=== PATIENT | male | born 1945 | race Caucasian/White ===

== ENCOUNTER 2018-03-28 07:42 | Outpatient (REF) | payer BC, SELFPAY ==
[2018-03-28 12:31] LABS: Anion Gap 9.7 mmol/L (3-11); BUN 16 mg/dL (7-18); CO2 26.3 mmol/L (21.0-32.0); Calcium 8.7 mg/dL (8.5-10.1); Chloride 106 mmol/L (98-107); Cholesterol 208 mg/dL (50-200); Glucose 106 mg/dL (70-100); HDL Cholesterol 58 mg/dL (40-60); LDL CHOLESTEROL 138 mg/dL (<100); Potassium 4.2 mmol/L (3.5-5.1); Sodium 142 mmol/L (136-145); Triglyceride 106 mg/dL (30-150)
== END 2018-03-28 08:02 ==
LOC: NCHCN 07:42
PROVIDERS: PCP Family Medicine; Visit Provider Nurse Practitioner Family
DX: Z00.00 Encounter for general adult medical examination without abnormal findings (principal); Z13.228 Encounter for screening for other metabolic disorders; Z13.220 Encounter for screening for lipoid disorders
CPT/HCPCS: 80048; 80061; 83721

== ENCOUNTER 2019-01-05 09:06 | Outpatient (CLI) | payer BC, SELFPAY ==
--- NOTE | 2019-01-05 08:38 | DI.RAD_ITS ---
SYMPTOM/DIAGNOSIS: LEFT KNEE PAIN LEFT KNEE: Multiple views. No priors. Mild narrowing and periarticular spurring is seen in the medial femoral tibial joint space. There is mild spurring in the posterior patella. No acute fracture or dislocation is identified. Enthesophytes are seen arising from the patella. The soft tissues are unremarkable. IMPRESSION: Mild osteoarthritis of the left knee.
== END 2019-01-05 09:26 ==
PROVIDERS: PCP Family Medicine; Visit Provider Student in an Organized Health Care Education/Training Program
DX: M25.562 Pain in left knee (principal); M17.12 Unilateral primary osteoarthritis, left knee
CPT/HCPCS: 73564

== ENCOUNTER 2019-12-03 13:37 | Outpatient (REF) | payer BC, SELFPAY ==
[2019-12-03 19:47] LABS: ALT 13 U/L (16-63); AST 16 U/L (15-37); Albumin 3.5 g/dL (3.4-5.0); Alkaline Phosphatase 63 U/L (46-116); BUN 13 mg/dL (7-18); Bilirubin, Total 0.9 mg/dL (0.2-1.0); CREATININE 1.18 mg/dL (0.70-1.30); Calcium 8.9 mg/dL (8.5-10.1); Calculated LDL 78 mg/dL (<100); Chloride 106 mmol/L (98-107); Cholesterol 157 mg/dL (<200); Glucose 119 mg/dL (74-106); HDL Cholesterol 52 mg/dL (40-60); Hemoglobin A1C 5.6 % (3.8-5.6); Potassium 4.3 mmol/L (3.5-5.1); Sodium 141 mmol/L (136-145); Total Protein 6.6 g/dL (6.4-8.2); Triglyceride 136 mg/dL (<150)
== END 2019-12-03 13:57 ==
LOC: NCHCN 13:37
PROVIDERS: PCP Family Medicine; Visit Provider Nurse Practitioner
DX: E78.5 Hyperlipidemia, unspecified (principal); I10 Essential (primary) hypertension; R73.03 Prediabetes
CPT/HCPCS: 80053; 80061; 83036

== ENCOUNTER 2020-05-13 03:29 | Outpatient (CLI) | payer BC, SELFPAY ==
[2020-05-16 19:20] LABS: COVID-19 RT-PCR Result NEGATIVE (Negative)
== END 2020-05-13 03:49 ==
PROVIDERS: PCP Nurse Practitioner Family; Visit Provider Surgery
DX: Z11.59 Encounter for screening for other viral diseases (principal); Z01.818 Encounter for other preprocedural examination
CPT/HCPCS: U0003

== ENCOUNTER 2020-05-16 06:43 | Day surgery (SDC) | payer BC, SELFPAY ==
[2020-05-16 07:07] VITALS: BP 139/66; PULSE 74; RESP 16; TEMP 36.7; O2SAT 95
[2020-05-16] MEDS: Lactated Ringers 1,000 ML 80 ML IV (07:34)
[2020-05-16] MEDS: Endoscopic Tattoo 5 ML SYR IJ (09:00)
--- NOTE | 2020-05-16 09:00 | BOWEL_PTH ---
PATIENT: Boo Coley LOC: [facility] U#:[id number] AGE/SX: 74/M ROOM: RE05/16/[address]: Dalila Paula MD : 1945 BED: DIS: 05/16/2020 SPEC #: [id number] RECD: 05/16/20 12:36 STATUS: CLARKE REQ #: [id number] ABBY: 05/16/20 09:[address]: Dalila Paula DEPT: Surgical Specimen RECD BY: Manasa Murrieta ENTERED: 05/16/20 12:38 SP TYPE: Bowel OTHR DR: Shital Patel Tissues: 1 - BIOPSY BOWEL 2 - BIOPSY BOWEL 3 - BIOPSY BOWEL Procedures: GROSS AND MICRO LEVEL 4 Comments: [id number]
--- NOTE | 2020-05-16 09:11 | W.PM.DSUDISC ---
Discharge Plan Disposition Patient Disposition: HOME Condition: Good Discharge Details Reason For Visit: Colonoscopy Attending Provider: Dalila Paula Primary Care Provider: Shital Patel Home Meds and New Rx's Prescriptions: Continued atorvastatin 10 mg tablet 10 mg PO QHS RF: 0 losartan 100 mg tablet 100 mg PO DAILY RF: 0 ibuprofen 800 mg tablet 800 mg PO HS RF: 0 Discharge Instructions Additional Instructions: Findings: A large polyp in the right colon was biopsied. This may need to be surgically removed depending on biopsy results. Five other polyp were removed from the left colon. My office will contact you with biopsy results. Follow up: Further treatment will be based on biopsy results. Please call if you develop: fevers >101.5 Nausea or Vomiting Abdominal pain that is not transient Bleeding DAY SURGERY UNIT POST COLONOSCOPY INSTRUCTIONS 1. Because there will be medication in your system for the next 24 hours, you may feel a little sleepy. Your coordination will be affected. Therefore: a. Do not drive or operate dangerous equipment for 24 hours. b. Do not drink alcohol beverages for 24 hours (not even beer). c. Plan to go home and rest for the day. 2. Generally there are no restrictions on your activity after a day or so has gone by, but you may feel a bit fatigued for a few days. 3 After you arrive home you may have a light meal and return to a normal diet as you can tolerate it without feeling sick to your stomach. 4. After surgery, you may feel pain or discomfort. This should be only transient, but if it persists please contact your doctor. 5. If there are any questions regarding the findings of your procedure, please feel free to contact your doctor. 6. If you are unable to contact your doctor with a problem, contact the hospital at [phone]. 7. Continue all your regular medications unless directed otherwise. I understand the above instructions and have no questions. Signature of Patient or Responsible Adult Escort Date/Time Name of Responsible Adult Escort Signature of Nurse Date/Time Activity:: Activity as Tolerated Diet:: As Tolerated Discharge Orders Discharge Orders: Discharge Order (Routine); Ordered 05/16/20 Ordered By: Dalila Paula
[2020-05-16 09:40] VITALS: BP 137/66; PULSE 71; RESP 16; TEMP 36; O2SAT 97
--- NOTE | 2020-05-16 21:20 | W.COLOREPORT ---
Colonoscopy Report Date of procedure: 05/16/20 Pre-op diagnosis general: History of colon polyps Post-op diagnosis procedure note: other (Colon polyps) Procedure: Colonoscopy with biopsy, tattoo and snare polypectomy Surgeon: Dalila Paula Anesthesia proc note operative: MAC Indications: This 74 year old man presents for colonoscopy. His last procedure in 2012 showed polyps. Procedure Description: The patient was placed in the left Norton position. Propofol was titrated to sedation. Digital rectal examination revealed no abnormalities. The scope was advanced to the cecum without difficulty. The ileocecal valve and appendiceal orifice were clearly identified. The prep was good. The scope was slowly withdrawn over the course of greater than 6 minutes. In the mid-ascending colon/proximal hepatic flexure region an area of several adjacent polyps and a large flat polyp were found. This encompassed about 20% of the circumference. One of the flat polyps was concerning in appearance for a early malignancy. This region was biopsied. The colon proximal and distal to the polyps was tattooed. This area would be difficult to remove completely endoscopically and likely needs surgical treatment. In the descending colon, numerous less than 1cm polyps were removed with the snare and spent in the same specimen container. The rectum was normal including on retroflexed view. The patient tolerated the procedure well and was stable to recovery. The patient will be contacted with biopsy results and plans made as indicated.
== END 2020-05-16 14:00 | disposition home or self-care (01) ==
PROVIDERS: PCP Nurse Practitioner Family; Visit Provider Surgery
PROC: 0DJD8ZZ Inspection of Lower Intestinal Tract, Via Natural or Artificial Opening Endoscopic (ICD-10-PCS; CPT 45378; principal; 2020-05-16 08:15)
DX: C18.3 Malignant neoplasm of hepatic flexure (principal); Z12.11 Encounter for screening for malignant neoplasm of colon; D12.4 Benign neoplasm of descending colon; Z86.010 Personal history of colon polyps; I10 Essential (primary) hypertension
CPT/HCPCS: 45385; 45380; 45381; 88305; J2001

== ENCOUNTER 2020-05-29 00:37 | Outpatient (CLI) | payer BC, MEDICARE, SELFPAY ==
[2020-05-29 08:52] LABS: Abs Immature Grans 0.03 10^3/uL (0.0-0.06); Absolute Basophil Count 0.08 10^3/uL (0.0-0.2); Absolute Eosinophil Count 0.78 10^3/uL (0.0-0.7); Absolute Lymphocyte Count 1.76 10^3/uL (1.2-3.4); Absolute Neutrophil Count 4.77 10^3/uL (1.2-6.7); Eosinophils % 9.6; HCT 42.6 % (40.0-50.0); HGB 13.5 g/dL (13.5-17.5); Immature Grans % 0.4; Lymphocytes % 21.7; MCH 30.3 pg (27.0-33.0); MCHC 31.7 % (32.0-36.0); MCV 95.7 fL (80-95); MPV 9.7 fL (8.0-11.0); Monocytes % 8.6; Neutrophils % 58.7; Nucleated RBC 0 %; Platelet Count 238 10^3/uL (130-400); RBC 4.45 10^6/uL (4.36-5.78); RDW-SD 45.8 fL; WBC 8.12 10^3/uL (4.4-10.8)
[2020-05-29 09:06] LABS: ALT 14 U/L (16-63); AST 18 U/L (15-37); Albumin 3.4 g/dL (3.4-5.0); Alkaline Phosphatase 59 U/L (46-116); Anion Gap 5.6 mmol/L (3-11); BUN 12 mg/dL (7-18); Bilirubin, Total 0.9 mg/dL (0.2-1.0); CO2 28.4 mmol/L (21.0-32.0); CREATININE 1.21 mg/dL (0.70-1.30); Calcium 8.7 mg/dL (8.5-10.1); Chloride 105 mmol/L (98-107); Estimated GFR 58.78 (mL/min/1.73m2); Glucose 110 mg/dL (74-106); Sodium 139 mmol/L (136-145); Total Protein 7.1 g/dL (6.4-8.2)
--- NOTE | 2020-05-29 10:10 | DI.CT_ITS ---
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 Mediastinum and Shahrzad: No dominant adenopathy or fluid collection. Pulmonary parenchyma: No consolidation or dominant measurable mass. No architectural distortion. Note is made of an azygos lobe. Pleura: No effusion or pneumothorax. Heart: The heart is not dilated. Mild coronary artery calcification. No pericardial effusion. Aorta: Thoracic aorta non-dilated. Lymph nodes: Within normal limits. Bones:Degenerative changes. Soft tissues: Unremarkable. ABDOMEN: Liver: There is diffuse decreased attenuation of the liver consistent with fatty infiltration. The l iver measures 21 cm in length. No measurable mass. Portal, Superior Mesenteric, and Splenic Veins: Unremarkable. Gallbladder and Biliary Tract: No radiodense calculus or dilation. Pancreas: Normal density, no abnormal calcifications or inflammatory process. Spleen: Normal. Adrenals: No masses seen. Kidneys: Normal size, contour and axis. No radiodense stones or obstructive uropathy. There is a 2.7 cm isodense exophytic mass arising from the midpole of the right kidney. There are few tiny hypodens ities in the left kidney. They are too small for further characterization but likely reflect small c ysts. Abdominal Aorta: Abdominal portion non-dilated. Atherosclerosis. Bowel: No obstruction or bowel wall thickening. No evidence of appendicitis. Diverticulosis in the s igmoid colon but no evidence of acute diverticulitis. Peritoneal Cavity: No ascites, collection or mesenteric inflammatory response. Lymph Nodes: Within normal limits. Bones: Degenerative changes. No suspicious lytic or sclerotic lesions. Soft Tissues: Unremarkable. PELVIS: Bladder: Symmetric distention, no gross wall thickening. Reproductive Organs: Unremarkable as visualized. Lymph Nodes: Within normal limits. Bones: No suspicious lytic or sclerotic lesions. IMPRESSION: 1. No evidence of metastatic disease in the chest, abdomen or pelvis. 2. Diffuse fatty infiltration of the liver. 3. 2.7 cm isodense exophytic mass in the right kidney. This may represent a solid mass or complex cy st. Ultrasound or MRI should be considered for further evaluation. RADIATION DOSE DELIVERED: 2,734.59mGy.cm Total DLP DATA REPOSITORY: All CT scans at this facility are submitted to the National Radiology Data Registry (NRDR) Dose Index Registry (DIR) with the [employer] (ACR). RADIATION OPTIMIZATION: All CT scans at this facility use at least one of these dose optimization te chniques: automated exposure control; mA and/or kV adjustment per patient size (includes targeted exa ms where dose is matched to clinical indication); or iterative reconstruction.
[2020-05-29] MEDS: Normal Saline - Diluent 50 ML VIAL IV (10:25)
[2020-05-29] MEDS: Omnipaque 350 MG/ML 100 ML BTL IJ (10:26)
[2020-05-29] MEDS: Normal Saline Flush 10 ML SYR IVP (10:27)
[2020-05-30 08:48] LABS: CEA <0.5 ng/mL (See Note)
== END 2020-05-29 00:57 ==
PROVIDERS: PCP Nurse Practitioner Family; Visit Provider Surgery
DX: C18.2 Malignant neoplasm of ascending colon (principal); K76.0 Fatty (change of) liver, not elsewhere classified; N28.89 Other specified disorders of kidney and ureter
CPT/HCPCS: 74177; 80053; 71260; 82378; 85025; J3490

== ENCOUNTER 2020-06-10 01:21 | Outpatient (CLI) | payer BC, SELFPAY ==
--- NOTE | 2020-06-10 09:30 | DI.US_ITS ---
APPROVED REPORT EXAM: Comprehensive 2D, Doppler, and color-flow Echocardiogram Patient Location: Out-Patient Assistant Professor Of Geography: Meghann Zayas RDCS (AE) Indications: Pre op, HTN, Colon Cancer, Renal mass Other Information Study Quality: Fair. Technically limited study due to body habitus. Conclusion Left Ventricle : The left ventricle is normal size. The left ventricular systolic function is normal. The left ventricular ejection fraction is within the normal range. There is normal left ventricular wall thickness. LVEF is 60%. Right Ventricle : Right ventricle is not well visualized. Right ventricular systolic function could n ot be assessed. Atria : The left atrium size is normal. The right atrium size is normal. Valves: There are no hemodynamically significant valvular lesions. Great Vessels : The aortic root is normal in size. The ascending aorta is mildly dilated. IVC is norm al in size and collapses >50% with inspiration. Please see remainder of study for further details. Wall motion Left Ventricle The left ventricle is normal size. The left ventricular systolic function is normal. The left ventric ular ejection fraction is within the normal range. There is normal left ventricular wall thickness. T here is normal LV segmental wall motion. There is no ventricular septal defect visualized. LVEF is 60 %. Right Ventricle Right ventricle is not well visualized. Right ventricular systolic function could not be assessed. Atria The left atrium size is normal. The right atrium size is normal. The interatrial septum is intact wit h no evidence for an atrial septal defect. Aortic Valve The aortic valve is normal in structure. Aortic valve is trileaflet. There is no aortic valvular sten osis. No aortic regurgitation is present. Mitral Valve The mitral valve is normal in structure. No evidence of mitral valve stenosis. Trace mitral regurgita tion. Tricuspid Valve The tricuspid valve is normal in structure. There is no tricuspid valve stenosis. Trace tricuspid reg urgitation. Unable to assess PA pressure. Pulmonic Valve The pulmonary valve is normal in structure. There is no pulmonic valvular stenosis. There is no pulmo fredrick valvular regurgitation. Great Vessels The aortic root is normal in size. The ascending aorta is mildly dilated. IVC is normal in size and c ollapses >50% with inspiration. Pericardium There is no pericardial effusion. 2D Dimensions IVSD d PLAX 1.13 cm M: 0.6-1.2 LV Vol A2C d MOD 99.1 mL LVPW d PLAX 1.12 cm M: 0.6 - 1.2 LV Vol A4C d MOD 93.1 mL LVID d PLAX 5.00 cm M: 4.2 - 5.8 LA vol/ BSA A2C s A-L 38.6 mL/m2 LVDs 3.45 cm M: 2.5 - 4.0 LA vol/ BSA A4C s A-L 17.9 mL/m2 Ao Root d 2.84 cm M: 3.1 - 3.7 LA Vol/ BSA Biplane s A-L 28.5 mL/m2 RA Area A4C 15.91 cm2 LA Area A4C s MOD 16.10 cm2 RA Vol/ BSA A4C s A-L 17.2 mL/m2 LA Area A2C s MOD 25.61 cm2 Ao Asc Diam d 3.62 cm M: 2.6 - 3.4 LV EF A4C MOD 57.6 % LV EF Teichholz 57.5 % LV EF A2C MOD 61.9 % LVEF (Fitzpatrick's) 60.04 % M: 52 - 72 LV EF Biplane MOD 60.0 % LV Volume 68.06 mL M: 62 - 150 SV 58.07 mL LV Volume Index 27.77 mL/m2 M: 34 - 74 SV Index 23.65 mL/m2 LV Vol Biplane MOD 96.7 mL FS 30.35 % M-Mode TAPSE 2.72 cm (M/F) >1.7 LV Diastology MV E' medial 0.086 (>0.07 m/s) E/A Ratio 0.9 LV E/e MED 9.80 (<14) MV E Vmax 0.84 (0.4-1.3 m/s) MV E' lateral 0.081 (>0.1 m/s) MV A Vmax 0.90 (0.4-1.3 m/s) LV E/e LAT 10.40 (<14) MV E/A Ratio 0.89 MV E/E' medial 9.81 MV E/E' lateral 10.40 Aortic Valve LVOT Area 4.31 cm2 AoV Area Vmax 3.56 cm2 LVOT Vmax 1.68 m/s AoV Area/ BSA (Vmax) 1.45 cm2/m2 LVOT Mean Mark. 1.04 m/s BRE Mean Mark. 3.15 cm2 LVOT Peak Grad 11.3 mmHg BRE Mean Mark. Index 1.28 cm2/m2 LVOT Mean Grad 5.3 mmHg LVOT VTI 0.289 m LVOT Diam s 2.30 cm AoV Vmax 2.04 m/s Velocity Ratio 0.82 AoV Mean Mark. 1.43 m/s AoV Peak Grad 16.7 mmHg LVOT SV 124.66 mL AoV Mean Grad 9.3 mmHg AoV VTI 0.331 m AoV Area VTI 3.76 cm2 AoV Area/ BSA (VTI) 1.53 cm/m2 Mitral Valve MV DT 267 (160-240 msec) MV PHT 77 msec MV Area PHT 2.85 cm2 MV VTI 0.288 m MV VTI Annulus 0.295 m MV Area VTI 4.45 (4.0-6.0 cm2) Pulmonary Valve PV Vmax 1.59 (0.5-1.5 m/s) RVOT Peak Gr. 5.93 mmHg PV Peak Grad 10.1 mmHg RVOT Mean Gr. 2.95 mmHg PV Mean Grad 5.8 mmHg RVOT VTI 0.205 m PV VTI 0.293 m RVOT Vmax 1.22 m/s
== END 2020-06-10 01:41 ==
PROVIDERS: PCP Nurse Practitioner Family; Visit Provider Surgery
DX: I77.810 Thoracic aortic ectasia (principal)
CPT/HCPCS: 93306

== ENCOUNTER 2020-06-16 01:19 | Outpatient (CLI) | payer BC, SELFPAY ==
--- NOTE | 2020-06-16 08:15 | DI.US_ITS ---
EXAM: US RENAL CLINICAL HISTORY: Right kidney lesion noted on CT,RENAL MASS, N28.89 TECHNIQUE: Ultrasound of both kidneys performed using standard protocol. COMPARISON: US US ECHOCARDIOGRAM from 06/10/2020 FINDINGS: RIGHT KIDNEY: Measures 13.2 cm in ghada there is a 3 x 2 centimeter exophytic benign cyst off the medial cortex of t he right kidney. Normal cortical thickness and corticomedullary differentiation .No solid masses No intrarenal calculi nor hydronephrosis. LEFT KIDNEY: Measures 13.7 cm in length. No cysts evident. Normal cortical thickness and corticomedullary differe ntiaion. No solids masses. No intrarenal calculi nor hydonephrosis. URINARY BLADDER: Prevoid volume is 107 cc Postvoid volume is 0 cc Difficult to assess accurately for bladder wall mass given that that there was only 107 cc bladder. No bladder diverticuli noted. Ureterovesical jets: Neither was visualized. Patient was not adequately hydrated for this examinatio n IMPRESSION: 1. Solitary benign exophytic cyst in the right kidney. No other significant focal renal findings. No hydronephrosis. 2. Urinary bladder prevoid volume 107 cc not adequate for determining if there is a bladder mass. N evertheless, the patient did empties bladder completely. DATA REPOSITORY:
== END 2020-06-16 01:39 ==
PROVIDERS: PCP Nurse Practitioner Family; Visit Provider Surgery
DX: N28.1 Cyst of kidney, acquired (principal)
CPT/HCPCS: 76770

== ENCOUNTER 2020-06-20 04:02 | Outpatient (CLI) | payer BC, SELFPAY ==
[2020-06-21 16:49] LABS: COVID-19 RT-PCR Result NEGATIVE (Negative)
--- NOTE | 2020-06-26 16:48 | CHAPLAIN ---
Boo was in bed when I visited. I explained my role and offered support. Boo was not interested in a longer conversation at this point.
== END 2020-06-20 04:22 ==
PROVIDERS: PCP Nurse Practitioner Family; Visit Provider Surgery
DX: Z11.52 Encounter for screening for COVID-19 (principal); Z01.818 Encounter for other preprocedural examination
CPT/HCPCS: U0003

== ENCOUNTER 2020-06-24 12:20 | Inpatient (IN) | payer BC, SELFPAY ==
[2020-06-24] VITALS (91 sets, daily range): BP systolic 88–139; BP diastolic 36–111; PULSE 68–124; RESP 9–28; TEMP 36.2–36.8; O2SAT 91–100
[2020-06-24] MEDS: Acetaminophen 500 MG TAB 1000 MG PO (06:46)
[2020-06-24] MEDS: Gabapentin 300 MG CAP PO (06:46)
[2020-06-24] MEDS: Lactated Ringers 1,000 ML 80 ML IV ×2 (07:09→11:59)
[2020-06-24] MEDS: FentaNYL/ROPIvacaine 2 mcg/ml and 0.1% 200 ML CADD Cassette EP (07:31)
[2020-06-24] MEDS: ERTAPENEM 1 GM in Normal Saline 50 ML IVPB (08:38)
--- NOTE | 2020-06-24 10:25 | BOWEL_PTH ---
PATIENT: Boo Coley LOC: U#:[id number] AGE/SX: 74/M ROOM: 210 RE06/24/[address]: Vivi Andersen : 1945 BED: A DIS: 06/29/2020 SPEC #: [id number] RECD: 06/24/20 13:12 STATUS: CLARKE REQ #: [id number] ABBY: 06/24/20 10:[address]: Vivi Andersen DEPT: Surgical Specimen RECD BY: Manasa Murrieta ENTERED: 06/24/20 13:13 SP TYPE: Bowel OTHR DR: Shital Patel Tissues: 1 - BOWEL RESECTION(OTHER) Procedures: GROSS AND MICRO LEVEL 5 Comments: [id number]
--- NOTE | 2020-06-24 12:44 | W.PM.OP ---
Date of service: 06/24/20 Time of Service: 12:44 Operative Note Operative Note DATE OF PROCEDURE: 06/24/20 PRE-OP DIAGNOSIS: cancerous polyp Right colon POST-OP DIAGNOSIS: same PROCEDURE: attempted laprascopic open extended right toya-colectomy mesh placement for hernia prevention SURGEON: Vivi Andersen ASSISTING SURGEON: Abby Cortes CUSTOMER OPERATIONS INTERN: Bonny Cummins ANESTHESIA: GETA, local and epidural ESTIMATED BLOOD LOSS: 100 PATHOLOGY: other (right colon. x2 areas that are tattooed- mid colon / and flexure on the ascending side. ) COMPLICATIONS: None Patient was transported to: PACU Patient's condition: stable Procedure Description: Mr. Coley, is a 74-year-old male, who had a previous colonoscopy for polyps with Dr. Zapata. CE did show: In the mid-ascending colon/proximal hepatic flexure region an area of several adjacent polyps and a large flat polyp were found. This encompassed about 20% of the circumference. One of the flat polyps was concerning in appearance for a early malignancy. This region was biopsied. The colon proximal and distal to the polyps was tattooed per Dr. Paula. Patient is here today for laparoscopic resection vs possible open. My concern is that we are not can be able to see the tattoo. The patient has a BMI of 41. And a large abdomen and most likely a very large omentum. Informed consent is obtained explaining risks and benefits of the procedure including but not limited to: Bleeding, infection, pneumonia, blood clots, hernias, wound dehiscence, wound infections heart attack and stroke, complications from anesthesia, chronic pain, chronic numbness, disfigurement and loss of function, anastomotic failure and need for colostomy. Patient and his understand all, and do agree to the procedure. Prior to surgery patient did complete a mechanical bowel prep and a Vargas antibiotic. An epidural is placed preoperatively by the department of anesthesia. Patient is brought to the operative room suite and placed supine on the table. All bony surfaces are padded. We do have two good large-bore IVs. Anesthesia is administered per the department of anesthesia, with all Covid precautions undertaken. Yuen catheter & NG tube are placed. Patient's abdomen is marked. Patient is prepped and draped in the usual sterile fashion using a ChloraPrep scrub solution. Timeout is performed. He did receive preop antibiotics in accordance to ACS SCIP protocol.: An Ioban drape was placed over top of the field to assist in committed sterility. .25 Percent Marcaine is used to create local field blocks. 1 stab incision is made in the midline 2 fingerbreadths above the umbilicus. Patient does have very large abdomen and large pannus. Hemostat is used to dissect down to the fascia. A varies is inserted. Drop test is positive. Insufflation is begun. When 15 mm of pressure was noted on the monitor the varies is removed, #5 port is inserted. The 0 degree angle scope was inserted through the port and shows no damage to the underlying structures. Second 5 mm port is placed in the left upper quadrant and an additional 5 mm port placed in the right lower quadrant. These are done following creation of local field blocks and under direct visualization. The abdomen is explored. Liver appears normal. Gallbladder appears normal. We had difficulty viewing visualizing that tattoo, but appears to be in the middle of the ascending colon. There is a second tattoo on the ascending colon side of the hepatic flexure. When attempting to mobilize or manipulate the colon, The fatty tissues are extremely friable and bleed quite readily. The omentum is quite enlarged and difficult to manipulate adn visualize the colon. At that point decided to convert this to an open case. The pneumoperitoneum is evacuated. And the laparoscopic instrumentation was passed off the field. The Omni retracting system placed on the table. #10 blade is used to make a vertical midline incision is approximately 8 inches length. Electrocautery is used to provide hemostasis and dissect down to the fascia. The fascia was entered, and the incision is carried Superiorly and inferiorly. The peritoneum was elevated with 2 hemostats and entered sharply. Again the fatty tissue was noted to be extremely friable and bleeds quite readily, Suggestive of the hyper inflammatory state. Once we enter, the abdomen is explored. The liver is free of masses. there are no gallstones and NG tube placed is in good position. the stomach appears normal. The colon and small bowel was run and then packed into the left lower quadrant. The Omni retractor system was placed. He has very large omentum that is is 2 inches thick. the majority of the omentum is excised to facilitate visualization and our dissection, using the LigaSure. Again the colon is reexamined there does appear to be 2 tattoos 1 in the mid ascending colon and one in the proximal ascending colon. There are no palpable masses. The white line of Toldt is then opened up using electrocautery. Lateral sidewall attachments are taken down using a combination of electrocautery and the LigaSure, to free up the terminal ileum and the appendix. The ileocolic and middle colic arteries are noted in the colon. The gastrocolic ligament entered, and the dissection carried down, freeing all the attachments of the right colon to the liver. these are quite extensive and very thick layer of fatty tissue. The duodenum is visulaized and the colon is bluntly dissected off from here. Working lateral to medial, we are able to free of all the mesenteric attachments. Four inches of the terminal ileum are sacrificed. Rent is made in the mesentery and the mesentery scored. A MELITON 80 is used to divide the terminal ileum. Working through the mesentery, using ligasure, the ileocolic artery and vein are identified. These are tied off with 0 Vicryl ties. Remainder the mesentery is taken down using electrocautery and dissecting about an inch from the aorta to make sure we have a good excision of the sita basin. This is carried out to the first third of the transverse colon. The colon was divided using a MELITON 80 stapler. The specimen is passed off the field. The fatty attachments are taken off of the colonic limb. The limb of the colon appears pink and healthy with no edema. The ileum is evaluated, this appears to be pink and healthy, and there is no luminal comprmise. Towels are placed on the field. The antimesenteric ends of the bowel are brought together. A jnhm-rc-mhze anastomosis is created in the standard fashion using a MELITON 80 and a TA 60 staplers. Stay sutures placed at the distal aspect of the anastomosis. The anstomosis is palpated. We do have a good anastomosis and there is no bleeding. It Appears to be pink and healthy. the corners of the anastomosis and the midportion of the anastomosis are oversewn using 4-0 Prolene. Again there is a good lumen and the ends appear to be pink and healthy. The defect in the mesentery is oversewn with 3-0 Vicryl. The abdomen is copiously irrigated with 2 L of saline all saline was removed. There is no bleeding from the dissection sites, from the anastomosis, or from the vessel ligation sites. All sponge and instrument counts are correct. Interceed is placed under the incision. Peritoneum was closed with 0 Vicryl in interrupted and running fashion. The fascia is closed with interrupted #1 Vicryl in a jtuvcl-dx-ukagh fashion interrupted fashion. As we are closing the patient's abdomen, and with his history of COPD and his BMI, it is noted that he has a high risk for operative hernia. At that point was discussed and decided that a mesh onlay may be very beneficial and helping to prevent hernia We did elevate flaps in place a 20 x 15 cm mesh onlay this was tacked in position with AbsorbaTack. Methylcellulose was placed over top of this to aid in hemostasis and seroma prevention. 2 #15 the VAC drains are placed on either side of midline and brought out through separate inferior stab incisions and sewn in place with 2-0 nylon. Subcutaneous tissues closed with 0 Vicryl and the skin is approximated with kimberly. Christopher's wound system was placed. All instrument and sponge counts are correct. Patient was woken up and recovered in the room per Covid precautions. Patient tolerated procedure well without complication and transferred to the ICU in stable condition. We did decide to place the patient in ICU, as he had a little bit of blood pressure fluctuations, which was most likely due to epidural placement and not blood loss. Patient's was apprised of the findings
--- NOTE | 2020-06-24 15:31 | PGE_ITS ---
Date of Service Date of service: 06/24/20 Time of Service: 15:31 Assessment and Plan Assessment and plan (1) Renal cyst, right: Status: Acute (2) Essential hypertension: Status: None (3) BMI 40.0-44.9, adult: Status: Acute (4) History of smoking: Status: Acute (5) Colon cancer: Status: Chronic Assessment and plan: The patient is doing well post-op. Their pain is well controlled. They are having no nausea or vomiting. The pt is not having any chest pain or SOB, productive cough; no calf pain or swelling. The pt is making good urine. The pt pain is adequately controlled. The case was discussed with prosper carrizales and patients progress reviewed. All of the pt's home medications were addressed and adjusted accordingly for their oral intact status. He is tolerating sips/chips. He has no pain. BP has been stable and is off of Pressers. He has had good urine output. We d/w findings at surgery. We were not able to do the procedure laprascopically, and we did put a mesh in place. He has drains in place and will probably go home with. We will consult care management for home Hleath RN. HEENT: no jaundice. no eye pain/drainage/redness/swelling. mild sore throat cardio- NSR no chest pain, BP stable. pulm: no sob or productive cough. no hemoptysis incision- clean/dry. dressing intact no excessive bleeding or drainage I discussed with the patient and/or their family about the findings in surgery and the pt's prognosis. We reviewed expectations for progress in the hospital; what the pt could expect for recovery time and length of stay. We discussed the importance of walking and pulmonary toilet to avoid blood clots and pneumonia. Continue current plans for pulmonary toilet, GI and DVT prophylaxis. We shall continue the current plan for pain management as it is at an appropriate level and working well for the pt. A wound care plan was reviewed with nursing as well. Anesthesia will manage the epidural. cont enterg and will start lovnox in am. I d/w pt prgress w/ his as well. see orders (6) Tubular adenoma: Status: Inactive (7) Sleep disturbance: Status: Inactive (8) Prediabetes: Status: Inactive (9) Hyperlipidemia: Status: Acute Objective Last Vital Signs Temp 36.5 C 06/24/20 14:40 Pulse 70 06/24/20 14:40 Resp 22 06/24/20 14:40 BP 131/46 L 06/24/20 14:40 Pulse Ox 97 06/24/20 14:40
[2020-06-24] MEDS: Lactated Ringers 1,000 ML 125 ML IV ×2 (15:41→22:32)
[2020-06-24] MEDS: FAMOTIDINE 20 MG/50 ML BAG 200 MG IVPB (20:24)
[2020-06-24] MEDS: Ketorolac 15 MG/ML VIAL IVP (20:25)
[2020-06-24] MEDS: Gabapentin 100 MG CAP PO (20:25)
[2020-06-24] MEDS: ACETAMINOPHEN 1,000 MG/100 ML BTL 400 MG IVPB (22:26)
[2020-06-25] VITALS (131 sets, daily range): BP systolic 106–147; BP diastolic 43–91; PULSE 69–104; RESP 13–35; TEMP 36.1–38.1; O2SAT 89–99
[2020-06-25] MEDS: Ketorolac 15 MG/ML VIAL IVP ×4 (02:11→20:38)
[2020-06-25] MEDS: ACETAMINOPHEN 1,000 MG/100 ML BTL 400 MG IVPB (05:38)
[2020-06-25 07:01] LABS: Abs Immature Grans 0.05 10^3/uL (0.0-0.06); Absolute Basophil Count 0.02 10^3/uL (0.0-0.2); Absolute Eosinophil Count 0.03 10^3/uL (0.0-0.7); Absolute Lymphocyte Count 1.42 10^3/uL (1.2-3.4); Basophils % 0.2; Eosinophils % 0.3; HCT 34.3 % (40.0-50.0); HGB 10.8 g/dL (13.5-17.5); Immature Grans % 0.5; Lymphocytes % 12.9; MCH 30.5 pg (27.0-33.0); MCHC 31.5 % (32.0-36.0); MCV 96.9 fL (80-95); MPV 10.1 fL (8.0-11.0); Monocytes % 11.8; Neutrophils % 74.3; Nucleated RBC 0 %; Platelet Count 191 10^3/uL (130-400); RBC 3.54 10^6/uL (4.36-5.78); RDW 13.2 % (11.8-14.1); RDW-SD 47.7 fL; WBC 11.03 10^3/uL (4.4-10.8)
[2020-06-25 07:20] LABS: ALT 15 U/L (16-63); AST 16 U/L (15-37); Albumin 2.6 g/dL (3.4-5.0); Alkaline Phosphatase 39 U/L (46-116); Anion Gap 4.6 mmol/L (3-11); BUN 18 mg/dL (7-18); Bilirubin, Total 0.7 mg/dL (0.2-1.0); CO2 25.4 mmol/L (21.0-32.0); CREATININE 1.66 mg/dL (0.70-1.30); Calcium 7.5 mg/dL (8.5-10.1); Chloride 105 mmol/L (98-107); Estimated GFR 40.81 (mL/min/1.73m2); Glucose 112 mg/dL (74-106); Potassium 4.6 mmol/L (3.5-5.1); Sodium 135 mmol/L (136-145); Total Protein 5.6 g/dL (6.4-8.2)
--- NOTE | 2020-06-25 07:44 | W.PM.PROGNOT ---
Date of Service Date of service: 06/25/20 Time of Service: 07:44 Assessment and Plan Assessment and plan (1) Renal cyst, right: Status: Acute (2) Essential hypertension: Status: None (3) BMI 40.0-44.9, adult: Status: Acute (4) History of smoking: Status: Acute (5) Colon cancer: Status: Chronic Assessment and plan: POD #1 right hemicolectomy. FLOYD drains in place bloody, serous drainage 60-80ccs in a 8 hours. Pain is well controlled;/10PL No flatus Will try clear liquid diet this morning. Reviewed and discussed use of the Incentive spirometer. Encouraged pulmonary toilet. Strongly encouraged activity OOB and working with PT today. (6) Hyperlipidemia: Status: Acute Exam Const General: cooperative, healthy appearing and comfortable Orientation: alert and oriented x3 Resp Effort & Inspection: normal respiratory effort, no audible wheezes and no cough GI Inspection: normal to inspection and incision (Midline incision dresssed. ) Other: [address] with bloody serous fluid Other: Yuen in place Objective Last Vital Signs Temp 36.5 C 06/25/20 05:38 Pulse 72 06/25/20 06:01 Resp 14 06/25/20 06:01 BP 125/49 L 06/25/20 06:01 Pulse Ox 96 06/25/20 06:01 Laboratory Results - last 24 hr 06/25/20 06/25/20 06:15 06:15 WBC 11.03 H RBC 3.54 L Hgb 10.8 L Hct 34.3 L MCV 96.9 H MCH 30.5 MCHC 31.5 L RDW 13.2 Plt Count 191 MPV 10.1 Immature Gran % 0.5 Neutrophils % 74.3 Lymphocytes % 12.9 Monocytes % 11.8 Eosinophils % 0.3 Basophils % 0.2 Nucleated RBC % 0 Absolute Neutrophils 8.20 H Absolute Lymphocytes 1.42 Absolute Monocytes 1.30 H Absolute Eosinophils 0.03 Absolute Basophils 0.02 Sodium 135 L Potassium 4.6 Chloride 105 Carbon Dioxide 25.4 Anion Gap 4.6 BUN 18 Creatinine 1.66 H Estimated GFR/1.73 m2 40.81 Glucose 112 H Calcium 7.5 L Total Bilirubin 0.7 AST 16 ALT 15 L Alkaline Phosphatase 39 L Total Protein 5.6 L Albumin 2.6 L
[2020-06-25] MEDS: Lactated Ringers 1,000 ML 125 ML IV ×2 (07:56→16:30)
[2020-06-25] MEDS: Nystatin POWDER 15 GM JAR TP (08:42)
[2020-06-25] MEDS: Gabapentin 100 MG CAP PO ×3 (08:46→20:39)
[2020-06-25] MEDS: Normal Saline Flush 10 ML SYR IV ×3 (08:47→20:39)
--- NOTE | 2020-06-25 12:01 | PDOC.ANES ---
Date of service: 06/25/20 Time of Service: 12:01 Anesthesia Note Report Anesthesia Note: Epidural Daily Management: Pt sitting up in a chair 1 day after bowel resection. Epidural running at 12 mL/hr, 5 mL bolus every 15 minutes as needed. The pump does not show that any PCEA doses have been given, pt confirms this. He states that his breathing feels good and that his pain has been very well controlled. Denies any one sided numbness, weakness. Plans to get up and get walking in the very near future. Plan to leave epidural at current settings and will reevaluate again tomorrow.
[2020-06-25] MEDS: ACETAMINOPHEN 1,000 MG/100 ML BTL 200 MG IVPB ×2 (13:10→21:21)
[2020-06-25] MEDS: Enoxaparin 40 MG/0.4 ML SYR SC (13:12)
--- NOTE | 2020-06-25 14:57 | PHA.REVIEW ---
Pharmacy Admission Review - Admission Clinical Review (Last Updated 06/24/20 @ 22:53 by Vivi Andersen DO) Hyperlipidemia (Acute) Renal cyst, right (Acute) History of smoking (Acute) BMI 40.0-44.9, adult (Acute) Sulfa (Sulfonamide Antibiotics) Allergy (Mild, Unverified 06/24/20 06:32) tight feeling in scrotum hydrochlorothiazide Adverse Reaction (Mild, Verified 06/24/20 06:32) lisinopril Adverse Reaction (Mild, Verified 06/24/20 06:32) cough Height 5 ft 10 in Weight 132.7 kg - Renal Dosing Renal Dosing: BUN 18 mg/dL (7-18) 06/25/20 06:15 Creatinine 1.66 mg/dL (0.70-1.30) H 06/25/20 06:15 Medications needing adjustments: Reviewed (eCrCl is 54.3 ml/min using adjusted bw) List of meds needing interventions: famotidine would need adjustement is ecrcl falls below 50 (extend interval to 48 hours) - Anticoagulation Anticoagulation: Hgb 10.8 g/dL (13.5-17.5) L 06/25/20 06:15 Hct 34.3 % (40.0-50.0) L 06/25/20 06:15 Plt Count 191 10^3/uL (130-400) 06/25/20 06:15 Creatinine 1.66 mg/dL (0.70-1.30) H 06/25/20 06:15 DVT Prohphylaxis: Reviewed Medications: Enoxaparin - Opiate Usage Evaluate Pain Scale/Pains Meds: Reviewed (epidural at 12ml/hr) Scheduled Bowel Reg ordered if on Opiates?: No (s/p bowel resection) - Relevant Labs Sodium 135 mmol/L (136-145) L 06/25/20 06:15 Potassium 4.6 mmol/L (3.5-5.1) 06/25/20 06:15 Chloride 105 mmol/L (98-107) 06/25/20 06:15 Electrolytes, C-Reactive P, ESR: Reviewed - DM Control DM Control: Glucose 112 mg/dL (74-106) H 06/25/20 06:15 Insulin Dosing: N/A - Heart Failure/KS EF%, OLENA's, B-Blockers, Diuretics: N/A - BP Control BP Control: Blood Pressure [Left Arm] 125/91 Blood Pressure [Left Arm] 114/54 Blood Pressure 107/44 Blood Pressure 127/51 Blood Pressure 147/72 Blood Pressure 125/91 Blood Pressure 125/91 Blood Pressure 147/72 Blood Pressure 125/91 Blood Pressure 129/59 Blood Pressure 129/59 Blood Pressure 121/43 Blood Pressure 121/43 Blood Pressure 133/72 Blood Pressure 133/72 Blood Pressure 112/47 Blood Pressure 112/47 Blood Pressure 114/54 Blood Pressure 118/44 Blood Pressure 125/49 Blood Pressure 120/49 Blood Pressure 106/50 Blood Pressure 109/47 If elevated: Reviewed (BP fluctuations during surgery and post up but now have resolved) - Qtc Review If Elevated: N/A - IV to PO Switch IV Medications: Reviewed - Home Meds Home Med List reviewed: Reviewed Relevent Home Meds Not ordered & why?: atorvastatin, diphenhydramine (reported home med dose seems concerningly high), IBU (ketorolac ordered), losartan (monitoring BP closely) - Current meds Current Medication Order Review: Reviewed
--- NOTE | 2020-06-25 15:40 | PT.INIE ---
Date of service: 06/25/20 Time of Service: 15:40 PT Notes Visit Reasons: RIGHT COLON CANCER Physical Therapy Inpatient Initial Evaluation Date: 06/25/2020 Referring Doctor: Vivi Andersen MD PT Orders: PT CONSULT: S/p laparotomy for colon cancer Precautions: Fall. Standard. Activity as tolerated. Patient Profile/Admitting Diagnosis: Carlito is a 74-year-old male with cancerous polyp of the right colon and is status post a right hemicolectomy on postoperative day 1. PMHX: Medical History BMI 40.0-44.9, adult Carpal tunnel syndrome Patient denies having. Essential hypertension History of smoking Hx of hemorrhoids Hyperlipidemia Prediabetes Rhinitis Sleep disturbance Tubular adenoma (~2012) Surgical History Hx of tonsillectomy Social History/Home Situation: Carlito lives with his in a private home with 20 steps to enter with bilateral rails. He states that he has more more rails once inside the house but he stresses that he can stay on the main floor of his house as he recovers. Equipment Owned/DME: None Subjective: Agreeable to PT consult. Reports 3/10 pain and the abdominal area at rest. Did indicate that he feels a lot better to be up and about and walking. Denies headache, chest pain, and lightheadedness throughout PT session. Objective: General Observation: Supine in bed. Obese. Telemetry monitoring in place. Surgical dressing over abdominal incision. [address] Yuen catheter in place. Epidural MICRO PHOTOGRAPHER pump in situ. Mental Status: Alert and oriented x4 Pain: 3/10 in the abdominal area at rest Vital Signs: Within normal limits as closely monitored via telemetry ROM: Right Upper Extremity: Shoulder Flexion WFL. Shoulder abduction WFL. Elbow flexion WFL. Wrist flexion WFL. Opening and closing of hand WFL. Left Upper Extremity: Shoulder Flexion WFL. Shoulder abduction WFL. Elbow flexion WFL. Wrist flexion WFL. Opening and closing of hand WFL. Right Lower Extremity: Hip flexion WFL. Hip abduction WFL. Knee flexion WFL. Ankle dorsiflexion WFL. Ankle plantarflexion WFL. Left Lower Extremity: Hip flexion WFL. Hip abduction WFL. Knee flexion WFL. Ankle dorsiflexion WFL. Ankle plantarflexion WFL. Strength: Right Upper Extremity: Shoulder flexors 5/5. Shoulder abductors 5/5. Elbow flexors 5/5. Elbow extensors 5/5. Nurse Special strong. Left Upper Extremity: Shoulder flexors 5/5. Shoulder abductors 5/5. Elbow flexors 5/5. Elbow extensors 5/5. Nurse Special strong. Right Lower Extremity: Hip flexors 4/5. Hip abductors 4/5. Knee flexors 4/5. Knee extensors 4/5. Ankle dorsiflexors 5/5. Ankle plantarflexors 5/5. Left Lower Extremity: Hip flexors 4/5. Hip abductors 4/5. Knee flexors 4/5. Knee extensors 4/5. Ankle dorsiflexors 5/5. Ankle plantarflexors 5/5. Sensation: Intact as to pain and pressure on bilateral lower extremities. Bed Mobility/Transfers: Supine to sit minimal assist with HOB at 30 degrees with complaint of minimal increase in pain in the surgical incision, uses pillow to splint abdominal incision Sit to stand contact-guard assist Stand to sit contact-guard assist Bed to chair contact-guard assist Chair to bed contact-guard assist Gait: Guided patient through level surface ambulation of about 80 feet without an assistive device with WBAT on bilateral lower extremities requiring only contact-guard assist to standby assist with decreased bethany noted but with patient reflexively splinting belly to minimize pain. Gait pattern otherwise unremarkable. Nurse Courtney providing IV pole management assist for safety. Balance: Static Sitting: Normal Dynamic Sitting: Good Static Standing: Good Dynamic Standing: Good Special Tests: Mobility Limitations Standardized Measure [facility]-PAC 6 clicks Basic Mobility Inpatient Short Form: Raw Score: 18 CMS Score: 47 % deficit Informed Consent/Education: Patient instructed in purpose of PT consult and plan of care. Assessment: Carlito demonstrates functional mobility decline requiring minimal assist for bed mobility as well as contact-guard assist for all transfer and ambulation task performance for safety due to postoperative status and report of abdominal pain. He will benefit from skilled services for postoperative mobilization and assist return to independent ambulation without an assistive device. Patient presents with clinical signs and symptoms consistent with current/admitting diagnoses that have resulted to mobility limitations, gait instability, generalized weakness, and impairment of motor control as demonstrated by the following impairment level findings: 1. Decreased strength to B hip major muscle groups 2. Impaired sitting/standing balance 3. Impaired activity tolerance Impairments are contributing to the following functional limitations: 1. Dependent bed mobility skills 2. Increased dependence with transfers 3. Inability to safely ambulate independently 4. Increase completion time for mobility ADL performance 5. Increased fall risk 6. Inability to negotiate steps alone safely Patient is assessed as a 03952 moderate complexity based on the following: History: 74-year-old male with impairment level findings, functional limitations, and past medical history as indicated above Examination: Demonstrable impairment in strength, balance, and mobility level with underlying impairments and functional limitations as documented above Presentation:Evolving Decision Makin moderate complexity Goals: Goals X 3 days 1. Supine-Sit independent 2. Sit-Supine independent 3. Sit-Stand independent 4. Stand-Sit independent 5. Bed-Chair independent 6. Chair-Bed independent 7. Independent gait on level surface without an assistive device device for at least 300 feet without report of pain nor dyspnea 8. Independent stair negotiation while holding onto bilateral rails for at least 20 steps without report of pain nor dyspnea 9. Independent with home exercise program 10. Good static and dynamic standing balance/tolerance Plan of Care/Treatment Plan: 1-2x/day, 7 days/week x 1 week. Plan of care has been reviewed with the QUALITY CONTROL ENGINEER providing the service under Physical Therapy direction. Initiate Physical Therapy intervention for strengthening, bed mobility, transfers, gait, stairs, balance training, use of assistive device. DISCHARGE RECOMMENDATIONS: Home when medically cleared by orthopedic surgeon. No equipment needs at this time. TREATMENT CODE/TIME: 40297 x 20 minutes, 9753 0 x 10 minutes beginning at 15:40 PM. Thank you for the opportunity to participate in the care of this patient. Nila Pro PT, DPT, CLT [facility] [place], [place]
--- NOTE | 2020-06-25 16:06 | PDOC.CMIN ---
- If Service Date Differs Date of service: 06/25/20 Time of Service: 16:06 Care Management Initial Assess REASON FOR HOSPITALIZATION:: Right Colon Cancer PAST MEDICAL HISTORY/PAST SURGICAL HISTORY:: Medical History: BMI 40-44.9, adult; Carpel Tunnel Syndrome, essential hypertension, history of smoking, hx of hemorrhoids, hyperlipidemia, prediabetes, rhinitis, sleep disturbance, tubular adenoma, Colon Cancer, renal cyst. Surgical History: Foot surgery, colectomy, colonoscopy, hand surgery, left knee djd, tonsillectomy. PREVIOUS FUNCTIONAL STATUS/SOCIAL/FAMILY SUPPORTS:: Boo lives in [facility] with his , Fariha. They have one child who lives in [place], and they zoom with often. 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 He is independent at baseline. CURRENT FUNCTIONAL STATUS:: Boo was sitting up in his chair in the ICU when CM met with him. He reported that he is feeling good, and his pain in under control. He stated that he has been able to keep in contact with his . He is happy with the care he has received here. CM discussed services at home, in case it is recommended, and he stated that he does not believe that will be necessary. CM will continue to follow. ADVANCE DIRECTIVES:: Not on file. CM offered forms, Boo declined. Has patient been provided with info about the portal/API?: Yes Did the patient sign up for the portal?: No CODE STATUS:: Full Code INSURANCE COVERAGE / FINANCIAL ISSUES:: [employer]BS CURRENT HOME/COMMUNITY SERVICES/EQUIPMENT:: No current services or equipment. PRIMARY CARE PHYSICIAN:: Shital Patel POTENTIAL DISCHARGE NEEDS:: Evaluations for further needs, follow up appointments PATIENT/FAMILY EDUCATION NEEDS:: Review discharge instructions regarding activity levels and medications, discussion of self care needs including ask me three. ANTICIPATED BARRIERS TO DISCHARGE:: None identified. TRANSPORTATION:: Via private vehicle by his . PLAN:: Boo continues to be monitored in the ICU. He will return home via private vehilce once he is medically cleared. He may need HH RN for drain care, if indicated. CM asked Boo about HH services today, which he declined. CM will address this further if his Surgeon would prefer that he have HH support. Once he is discharged he will follow up with his PCP and discharge plan of care. CM will continue to follow.
[2020-06-25] MEDS: FentaNYL/ROPIvacaine 2 mcg/ml and 0.1% 200 ML CADD Cassette EP (16:30)
[2020-06-25] MEDS: FAMOTIDINE 20 MG/50 ML BAG 200 MG IVPB (20:38)
[2020-06-25] MEDS: Melatonin 3 MG TAB PO (21:38)
[2020-06-26] VITALS (15 sets, daily range): BP systolic 102–139; BP diastolic 47–74; PULSE 79–97; RESP 17–18; TEMP 36.9–37.9; O2SAT 93–97
[2020-06-26] MEDS: Lactated Ringers 1,000 ML 30 ML IV (00:55)
[2020-06-26] MEDS: Ketorolac 15 MG/ML VIAL IVP ×2 (02:15→08:04)
[2020-06-26] MEDS: ACETAMINOPHEN 1,000 MG/100 ML BTL 400 MG IVPB ×3 (06:04→23:19)
[2020-06-26 06:41] LABS: Abs Immature Grans 0.08 10^3/uL (0.0-0.06); Absolute Basophil Count 0.04 10^3/uL (0.0-0.2); Absolute Eosinophil Count 0.04 10^3/uL (0.0-0.7); Absolute Lymphocyte Count 0.94 10^3/uL (1.2-3.4); Absolute Monocyte Count 1.12 10^3/uL (0.1-0.8); Absolute Neutrophil Count 11.25 10^3/uL (1.2-6.7); Basophils % 0.3; Eosinophils % 0.3; HCT 30.7 % (40.0-50.0); HGB 9.7 g/dL (13.5-17.5); Immature Grans % 0.6; MCH 30.9 pg (27.0-33.0); MCHC 31.6 % (32.0-36.0); MCV 97.8 fL (80-95); MPV 10.2 fL (8.0-11.0); Monocytes % 8.3; Neutrophils % 83.5; Nucleated RBC 0 %; Platelet Count 153 10^3/uL (130-400); RBC 3.14 10^6/uL (4.36-5.78); RDW 13.2 % (11.8-14.1); RDW-SD 47.2 fL; WBC 13.47 10^3/uL (4.4-10.8)
[2020-06-26] MEDS: Gabapentin 100 MG CAP PO ×3 (08:03→20:39)
[2020-06-26] MEDS: Normal Saline Flush 10 ML SYR IV ×2 (08:04→20:41)
[2020-06-26] MEDS: FentaNYL/ROPIvacaine 2 mcg/ml and 0.1% 200 ML CADD Cassette EP (08:37)
--- NOTE | 2020-06-26 08:59 | W.PM.PROGNOT ---
Documented by User: SHARON Miller 06/26/20 09:02 Date of Service Date of service: 06/26/20 Time of Service: 08:59 Assessment and Plan Assessment and plan (1) Colon cancer: Status: Chronic Assessment and plan: POD #2 s/p right hemicolectomy Tolerating clear liquid diet Abdominal pain well controlled. Fevers over night, which resolved with use of tylenol. Encourage Pulmonary toilet and use of the incentive spirometer. Ambulating and transferring with the room Continue with PT. Will progress diet once he is passing flatus. Subjective Subjective Interval history since last seen: Patient reports feeling well today, only tired. Reports his pain is well controlled at this time. He has been passing liquid stool. He has not been passing any flatus. Exam Const General: cooperative, healthy appearing and comfortable Orientation: alert and oriented x3 Resp Effort & Inspection: normal respiratory effort, no audible wheezes and no cough GI Inspection: normal to inspection Auscultation: normal bowel sounds Other: FLOYD drains in place, bloody serous drainage Objective Last Vital Signs Temp 38.0 C H 06/25/20 21:21 Pulse 88 06/26/20 06:01 Resp 22 06/25/20 18:20 BP 125/59 L 06/26/20 06:01 Pulse Ox 93 06/25/20 17:50 Laboratory Results - last 24 hr 06/26/20 06:11 WBC 13.47 H RBC 3.14 L Hgb 9.7 L Hct 30.7 L MCV 97.8 H MCH 30.9 MCHC 31.6 L RDW 13.2 Plt Count 153 MPV 10.2 Immature Gran % 0.6 Neutrophils % 83.5 Lymphocytes % 7.0 Monocytes % 8.3 Eosinophils % 0.3 Basophils % 0.3 Nucleated RBC % 0 Absolute Neutrophils 11.25 H Absolute Lymphocytes 0.94 L Absolute Monocytes 1.12 H Absolute Eosinophils 0.04 Absolute Basophils 0.04 Documented by User: Vivi Andersen DO 06/26/20 11:38 Assessment and Plan Assessment and plan (1) Colon cancer: Status: Chronic Assessment and plan: Patient had another large liquid bowel movement this morning. There was some blood but it was mostly old blood. He is Feeling good; he is hungry. no headaches. No CP or SOB. no productive cough. no dysuria. no leg pain or swelling. He is up walking. He has no pain today. He did have a slightly elevated WBC count. I did order a chest ray and this was negative. He denies any other symptomatology. He had a temp 38 yesterday but none today. But he has been receiving Tylenol. The wound is dressed with surrounding tissue shows no redness. Has good bowel sounds. No leg pain or swelling. He is getting around well. I discussed the epidural with anesthesia. We are going to leave this in today and then start titrating tomorrow. He can have a scrambled egg. If that goes well he can have a soft diet with no bread/rice/pasta steak/pork and no raw fruits or vegetables except bananas. Continue walking to tolerance. (2) History of smoking: Status: Acute (3) BMI 40.0-44.9, adult: Status: Acute (4) Essential hypertension: Status: None (5) Hyperlipidemia: Status: Acute
--- NOTE | 2020-06-26 09:30 | DI.RAD_ITS ---
EXAM: XR CHEST 2V PA LATERAL CLINICAL HISTORY: s/p laparotomy/elevated WBC TECHNIQUE: 2D digital imaging was performed. COMPARISON: CT CT CHEST/ABD/PEL W from 05/29/2020 FINDINGS: MEDIASTINUM: Normal. HEART: Normal. PULMONARY VASCULATURE: Normal. LUNGS: Clear. 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 PLEURAL SPACE: No pleural effusion or pneumothorax. BONE:Within normal limits for the patient's age. OTHER FINDINGS:There is a small amount of air beneath the right hemidiaphragm likely reflecting the p atient's recent laparotomy. Please correlate clinically. IMPRESSION: 1. No acute pulmonary findings. 2. Small amount of free air beneath the right hemidiaphragm likely reflecting the patient's recent la parotomy. DATA REPOSITORY: RADIATION DOSE DELIVERED:
--- NOTE | 2020-06-26 11:32 | W.NUTRFU ---
Date of service: 06/26/20 Time of Service: 11:32 Nutritional Follow up NOTE: 74 year old male admitted for removal of cancerous polyp or right colon. BMi indicates morbid obesity. Diet advanced to clear liquids today. Will monitor tolerance. Does not appear at nutritional risk. Time Spent in Nutritional Counseling and Treatment: 0
--- NOTE | 2020-06-26 12:20 | PT.INDS ---
Date of service: 06/26/20 Time of Service: 12:20 PT Notes Visit Reasons: RIGHT COLON CANCER Physical Therapy Inpatient Discharge Summary Date: 06/26/2020 Dates of service: 06/25/201906/06 through 06/26/2020 Referring Doctor: Vivi Andersen MD PT Orders: PT CONSULT: S/p laparotomy for colon cancer Precautions: Fall. Standard. Activity as tolerated. Patient Profile/Admitting Diagnosis: Carlito is a 74-year-old male with cancerous polyp of the right colon and is status post a right hemicolectomy on postoperative day 2. PMHX: Medical History BMI 40.0-44.9, adult Carpal tunnel syndrome Patient denies having. Essential hypertension History of smoking Hx of hemorrhoids Hyperlipidemia Prediabetes Rhinitis Sleep disturbance Tubular adenoma (~2012) Surgical History Hx of tonsillectomy Social History/Home Situation: Carlito lives with his in a private home with 20 steps to enter with bilateral rails. He states that he has more more rails once inside the house but he stresses that he can stay on the main floor of his house as he recovers. Equipment Owned/DME: None Subjective: Agreeable to PT consult. Agreeable to discharging physical therapy services at this time with HEP provided and with nursing staff providing hallway ambulation as needed. Objective: General Observation: Seated on chair. Obese. Telemetry monitoring in place. Surgical dressing over abdominal incision. [address] Yuen catheter in place. Epidural SCRIBING MACHINE OPERATOR pump in situ. Mental Status: Alert and oriented x4 Pain: 3/10 in the abdominal area at rest Vital Signs: Within normal limits as closely monitored via telemetry ROM: Right Upper Extremity: Shoulder Flexion WFL. Shoulder abduction WFL. Elbow flexion WFL. Wrist flexion WFL. Opening and closing of hand WFL. Left Upper Extremity: Shoulder Flexion WFL. Shoulder abduction WFL. Elbow flexion WFL. Wrist flexion WFL. Opening and closing of hand WFL. Right Lower Extremity: Hip flexion WFL. Hip abduction WFL. Knee flexion WFL. Ankle dorsiflexion WFL. Ankle plantarflexion WFL. Left Lower Extremity: Hip flexion WFL. Hip abduction WFL. Knee flexion WFL. Ankle dorsiflexion WFL. Ankle plantarflexion WFL. Strength: Right Upper Extremity: Shoulder flexors 5/5. Shoulder abductors 5/5. Elbow flexors 5/5. Elbow extensors 5/5. Medical Physiologist strong. Left Upper Extremity: Shoulder flexors 5/5. Shoulder abductors 5/5. Elbow flexors 5/5. Elbow extensors 5/5. Medical Physiologist strong. Right Lower Extremity: Hip flexors 4/5. Hip abductors 4/5. Knee flexors 4/5. Knee extensors 4/5. Ankle dorsiflexors 5/5. Ankle plantarflexors 5/5. Left Lower Extremity: Hip flexors 4/5. Hip abductors 4/5. Knee flexors 4/5. Knee extensors 4/5. Ankle dorsiflexors 5/5. Ankle plantarflexors 5/5. Sensation: Intact as to pain and pressure on bilateral lower extremities. Bed Mobility/Transfers: Supine to sit supervision Sit to stand supervision Stand to sit supervision Bed to chair supervision Chair to bed supervision Gait: Guided patient through level surface ambulation of about 300 feet without an assistive device with WBAT on bilateral lower extremities requiring only supervision assist for IV pole as well as line management. Gait pattern unremarkable. Stairs: Down 6 x 4 inch steps and four 6 inch steps holding onto bilateral rails with step over step pattern requiring supervision assist. Balance: Static Sitting: Normal Dynamic Sitting: Normal Static Standing: Normal Dynamic Standing: Good Assessment: Carlito is only currently limited by current attachments/lines that he has. He is discharged from physical therapy services at supervision level for line management only. He is 100% knowledgeable about the use of front wheeled walker if needed. Understands and is able to perform written home exercise program. Goals: Goals X 3 days 1. Supine-Sit independent NOT MET due to attachments/lines 2. Sit-Supine independent NOT MET due to attachments/lines 3. Sit-Stand independent NOT MET due to attachments/lines 4. Stand-Sit independent NOT MET due to attachments/lines 5. Bed-Chair independent NOT MET due to attachments/lines 6. Chair-Bed independent NOT MET due to attachments/lines 7. Independent gait on level surface without an assistive device device for at least 300 feet without report of pain nor dyspnea NOT MET due to attachments/lines 8. Independent stair negotiation while holding onto bilateral rails for at least 20 steps without report of pain nor dyspnea NOT MET due to attachments/lines 9. Independent with home exercise program MET 10. Good static and dynamic standing balance/tolerance NOT MET due to attachments/lines DISCHARGE RECOMMENDATIONS: Home when medically cleared by orthopedic surgeon. No equipment needs at this time. Continue hallway ambulation as tolerated with nursing staff. TREATMENT CODE/TIME: 53941 x 15 minutes, 61435 x 15 minutes beginning at 12:20 PM. Thank you for the opportunity to participate in the care of this patient. Nila Pro PT, DPT, CLT [facility] [place], [place]
--- NOTE | 2020-06-26 14:03 | PDOC.ANES ---
Date of service: 06/26/20 Time of Service: 13:00 Anesthesia Note Report Anesthesia Note: Patient resting comfortably in bed, able to turn [id number] for assessment of motor assessment in legs and has been able to get up with physical therapy. Patient verbally reports that his pain is well controlled. Discussed plan with Dr. Andersen and will decrease infusion rate in the AM. Epidural currently running at 12 mL/hr, 5 mL bolus every 15 minutes as needed. Denies any numbness or weakness. Patient will be reevaluated tomorrow.
--- NOTE | 2020-06-26 20:08 | PDOC.CMPRO ---
- If Service Date Differs Date of service: 06/26/20 Time of Service: 20:08 Care Management Progress Note S/O: Boo was sitting up in bed when CM met with him. He will be transferred out of the ICU later today to the m/s floor. He stated that he feels good with very little pain. CM discussed the possibility of needing HH RN for drain care upon discharge, if the drains remain. He stated that he has been in contact with his via zoom. He did not have any concerns at this time. A: Boo is a 74 year old male admitted to [facility] on 06/24/20 with Right Colon Cancer. P: Boo will return home once medically cleared. He may need HH RN, if he returns home with drains. His will drive him home via private vehicle when ready. He will follow up with his PCP and discharge plan of care. CM will continue to follow.
[2020-06-26] MEDS: FAMOTIDINE 20 MG/50 ML BAG 200 MG IVPB (20:39)
[2020-06-26] MEDS: Melatonin 3 MG TAB PO (20:50)
[2020-06-27] VITALS (8 sets, daily range): BP systolic 138–167; BP diastolic 70–90; PULSE 80–86; RESP 16–95; TEMP 36–37.1; O2SAT 95–99
[2020-06-27] MEDS: FentaNYL/ROPIvacaine 2 mcg/ml and 0.1% 200 ML CADD Cassette EP (00:50)
[2020-06-27] MEDS: ACETAMINOPHEN 1,000 MG/100 ML BTL 400 MG IVPB ×2 (05:47→14:05)
[2020-06-27] MEDS: Normal Saline Flush 10 ML SYR IV (05:48)
[2020-06-27 06:58] LABS: Abs Immature Grans 0.12 10^3/uL (0.0-0.06); Absolute Basophil Count 0.04 10^3/uL (0.0-0.2); Absolute Eosinophil Count 0.19 10^3/uL (0.0-0.7); Absolute Monocyte Count 1.23 10^3/uL (0.1-0.8); Basophils % 0.3; Eosinophils % 1.4; HCT 29.9 % (40.0-50.0); HGB 9.6 g/dL (13.5-17.5); Immature Grans % 0.9; Lymphocytes % 6.7; MCH 30.5 pg (27.0-33.0); MCHC 32.1 % (32.0-36.0); MCV 94.9 fL (80-95); MPV 10.4 fL (8.0-11.0); Neutrophils % 81.7; Nucleated RBC 0 %; Platelet Count 176 10^3/uL (130-400); RBC 3.15 10^6/uL (4.36-5.78); RDW 13.2 % (11.8-14.1); RDW-SD 45.6 fL; WBC 13.63 10^3/uL (4.4-10.8)
[2020-06-27 06:59] LABS: Absolute Lymphocyte Count 0.91 10^3/uL (1.2-3.4); Absolute Neutrophil Count 11.14 10^3/uL (1.2-6.7)
[2020-06-27] MEDS: Nystatin POWDER 15 GM JAR TP ×2 (08:02→19:13)
[2020-06-27] MEDS: Gabapentin 100 MG CAP PO ×3 (08:03→19:13)
--- NOTE | 2020-06-27 08:16 | PGE_ITS ---
Documented by User: SHARON Miller 06/27/20 08:25 Date of Service Date of service: 06/27/20 Time of Service: 08:16 Assessment and Plan Assessment and plan (1) Colon cancer: Status: Chronic Assessment and plan: POD #3 s/p right hemicolectomy Tolerating clear liquid diet Abdominal pain well controlled. Passing Liquid stool, no flatus Continues to have fevers at night. CRP increased to 1.66 today Encourage Pulmonary toilet and use of the incentive spirometer. Ambulating and transferring within the room Continue with PT. Dressing: TATE dressing will remain in place until D/C or next Tu. (07/01) which ever comes first. Do not tipple supervisor to the suction. Upon D/C or once FLOYD drains are removed, the second TATE dressing is to be applied with the suction. Currently, we are unable to keep a seal with the suction secondary to the FLOYD drains. Dressing is still viable without the suction. Will progress diet once he is passing flatus. Subjective Subjective Interval history since last seen: Patient expresses he frequently has the se nsation that he needs to have a BM, however he is only passing liquid stool. He is eager to eat real food. Exam Const General: cooperative and comfortable Orientation: alert and oriented x3 Resp Effort & Inspection: normal respiratory effort, no audible wheezes and no cough GI Palpation: soft, no guarding and nontender Auscultation: hypoactive bowel sounds Objective Last Vital Signs Temp 36.6 C 06/27/20 02:33 Pulse 86 06/27/20 02:33 Resp 18 06/27/20 02:33 BP 138/72 06/27/20 02:33 Pulse Ox 96 06/27/20 02:33 Laboratory Results - last 24 hr 06/27/20 06:40 WBC 13.63 H RBC 3.15 L Hgb 9.6 L Hct 29.9 L MCV 94.9 MCH 30.5 MCHC 32.1 RDW 13.2 Plt Count 176 MPV 10.4 Immature Gran % 0.9 Neutrophils % 81.7 Lymphocytes % 6.7 Monocytes % 9.0 Eosinophils % 1.4 Basophils % 0.3 Nucleated RBC % 0 Absolute Neutrophils 11.14 H Absolute Lymphocytes 0.91 L Absolute Monocytes 1.23 H Absolute Eosinophils 0.19 Absolute Basophils 0.04 Documented by User: Vivi Machado [email or web address] 06/27/20 23:06 Assessment and Plan Assessment and plan (1) Colon cancer: Status: Chronic Assessment and plan: Patient seen and examined. Agree with above. PCOS is removed. The incision is clean dry and intact. There is no hematomas. Skin minimal output from drains. There is no sign of any wound infections or seromas. He has been up walking. His pain is well controlled. We did remove his epidural today. He has no calf pain or swelling. The Yuen was removed and he has been able to urinate. He denies any dysuria. There is no skin breakdown. There is no signs of fascial or anastomotic dehiscence. We have stopped most of his hospital initiated medications. He is not on any antibiotics. Has not had any fever or chills. He still is running low-grade elevated WBC count. At this point I have no etiology for it. He has had no further bleeding from his bowels. His hemoglobin is remained stable. We did stop the Eliquis and the Toradol. I am going to give him a dose of Venefer. We will see how he progresses. Dr. Kumar to resume care for the weekend
--- NOTE | 2020-06-27 09:58 | PDOC.ANES ---
Date of service: 06/27/20 Time of Service: 09:59 Anesthesia Note Report Anesthesia Note: Daily Epidural Management Note: Patient resting comfortably in bed, able to turn [id number] for assessment of motor assessment in legs and has been able to get up with physical therapy. Patient verbally reports that his pain is 0/10. Discussed plan with Dr. Andersen and infusion stopped at 0950 today. Epidural dressing intact and at 12cm at skin, site looks good. Denies any numbness or weakness. If patient remains comfortable, we will remove the epidural later today.
[2020-06-27 15:06] LABS: Bilirubin Small (Negative); Blood Moderate (Negative); Clarity Sl Cloudy (Clear); Glucose Negative (Negative); Ketones 15 mg/dL (Negative); Leukocyte Esterase Negative (Negative); Nitrite Negative (Negative); Specific Gravity 1.025 (1.005-1.025); Urobilinogen 0.2 EU/dL (Up TO 0.2)
--- NOTE | 2020-06-27 15:16 | W.PM.PROGNOT ---
Date of Service Date of service: 06/27/20 Time of Service: 15:16 Subjective Subjective Interval history since last seen: some belching and bloating. had some liquid stool not much and no gas Exam GI Other: Abd obese, bs hyoo, wound clean, tenderness rlq focal. Wbb 13k Assesement post op day 3 plan await return of gifx Objective Last Vital Signs Temp 98.1 F 06/27/20 14:17 Pulse 86 06/27/20 14:17 Resp 18 06/27/20 14:17 BP 158/70 H 06/27/20 14:17 Pulse Ox 95 06/27/20 14:17 Laboratory Results - last 24 hr 06/27/20 06:40 WBC 13.63 H RBC 3.15 L Hgb 9.6 L Hct 29.9 L MCV 94.9 MCH 30.5 MCHC 32.1 RDW 13.2 Plt Count 176 MPV 10.4 Immature Gran % 0.9 Neutrophils % 81.7 Lymphocytes % 6.7 Monocytes % 9.0 Eosinophils % 1.4 Basophils % 0.3 Nucleated RBC % 0 Absolute Neutrophils 11.14 H Absolute Lymphocytes 0.91 L Absolute Monocytes 1.23 H Absolute Eosinophils 0.19 Absolute Basophils 0.04
[2020-06-27 15:17] LABS: D-Dimer 3656 ng/mlFEU (<500)
[2020-06-27 15:19] LABS: Bacteria Negative HPF (Negative); C & S Indicated? No; Casts Negative LPF (Negative); Crystals Negative HPF (Negative); Epithelial Cells Rare HPF (Negative); Mucus Negative (Negative); RBC 20-50 HPF (0-2); WBC 0-2 HPF (0-5)
[2020-06-27] MEDS: Cyclobenzaprine 10 MG TAB PO (19:12)
--- NOTE | 2020-06-27 19:24 | PDOC.CMPRO ---
- If Service Date Differs Date of service: 06/27/20 Time of Service: 19:24 Care Management Progress Note S/O: Boo was sitting up in his chair when CM met with him. He stated that he is not feeling pain, but is frustrated with the lack of progress he is currently making. CM encouraged him, and discussed the progress he has made so far. He was discharged from PT and given home exercises to continue. CM spoke to the Surgeon today, who reported he will likely be ready for discharge in the next 2-3 days. He will need HH RN for drain care. CM will continue to follow. A: Boo is a 74 year old male admitted to [facility] on 06/24/20 with Right Colon Cancer. P: Boo will return home once medically cleared. He may need HH RN, if he returns home with drains. His will drive him home via private vehicle when ready. He will follow up with his PCP and discharge plan of care. CM will continue to follow.
[2020-06-27] MEDS: Melatonin 3 MG TAB PO (22:21)
[2020-06-27] MEDS: Losartan 50 MG TAB 100 MG PO (22:21)
[2020-06-27] MEDS: Acetaminophen 500 MG TAB 1000 MG PO (22:21)
[2020-06-28 01:00] VITALS: BP 147/81; PULSE 81; RESP 16; TEMP 36.8; O2SAT 95
[2020-06-28] MEDS: Acetaminophen 500 MG TAB 1000 MG PO ×3 (05:18→21:42)
[2020-06-28 05:22] VITALS: BP 166/77; PULSE 74; RESP 14; TEMP 36.1; O2SAT 98
[2020-06-28 06:59] LABS: Abs Immature Grans 0.11 10^3/uL (0.0-0.06); Absolute Lymphocyte Count 1.23 10^3/uL (1.2-3.4); Absolute Neutrophil Count 10.99 10^3/uL (1.2-6.7); Basophils % 0.4; Eosinophils % 3.2; HCT 31.2 % (40.0-50.0); HGB 9.8 g/dL (13.5-17.5); Immature Grans % 0.8; Lymphocytes % 8.7; MCH 30.1 pg (27.0-33.0); MCHC 31.4 % (32.0-36.0); MCV 95.7 fL (80-95); MPV 10.3 fL (8.0-11.0); Monocytes % 9.4; Neutrophils % 77.5; Nucleated RBC 0 %; Platelet Count 263 10^3/uL (130-400); RBC 3.26 10^6/uL (4.36-5.78); RDW 13.2 % (11.8-14.1); RDW-SD 46.8 fL; WBC 14.18 10^3/uL (4.4-10.8)
[2020-06-28 07:19] LABS: Absolute Basophil Count 0.06 10^3/uL (0.0-0.2); Absolute Eosinophil Count 0.45 10^3/uL (0.0-0.7); Absolute Monocyte Count 1.33 10^3/uL (0.1-0.8)
[2020-06-28 07:44] VITALS: BP 160/72; PULSE 73; RESP 18; TEMP 36.6; O2SAT 98
--- NOTE | 2020-06-28 08:58 | W.PM.PROGNOT ---
Date of Service Date of service: 06/28/20 Time of Service: 08:58 Subjective Subjective Interval history since last seen: feels better.has some cramps before stooling but has been having bms Exam Narrative Exam Narrative: afeb past24 h Const General: cooperative and comfortable GI Other: Abd wound clean drains sero sanguenous minimal output bs present tenderness is improving wbc 14k Objective Last Vital Signs Temp 97.9 F 06/28/20 07:44 Pulse 73 06/28/20 07:44 Resp 18 06/28/20 07:44 BP 160/72 H 06/28/20 07:44 Pulse Ox 98 06/28/20 07:44 Laboratory Results - last 24 hr 06/27/20 06/27/20 06/28/20 14:33 14:40 06:14 WBC 14.18 H RBC 3.26 L Hgb 9.8 L Hct 31.2 L MCV 95.7 H MCH 30.1 MCHC 31.4 L RDW 13.2 Plt Count 263 MPV 10.3 Immature Gran % 0.8 Neutrophils % 77.5 Lymphocytes % 8.7 Monocytes % 9.4 Eosinophils % 3.2 Basophils % 0.4 Nucleated RBC % 0 Absolute Neutrophils 10.99 H Absolute Lymphocytes 1.23 Absolute Monocytes 1.33 H Absolute Eosinophils 0.45 Absolute Basophils 0.06 D-Dimer 3656 H Urine Color Yellow Urine Clarity Sl cloudy Urine pH 6.0 Ur Specific [place] 1.025 Urine Protein 100 H Urine Ketones 15 H Urine Blood Moderate H Urine Nitrite Negative Urine Bilirubin Small H Urine Urobilinogen 0.2 Ur Leukocyte Esterase Negative Urine RBC 20-50 H Urine WBC 0-2 Ur Epithelial Cells Rare Urine Crystals Negative Urine Bacteria Negative Urine Casts Negative Urine Mucus Negative Ur Culture Indicated? No Urine Glucose Negative
[2020-06-28] MEDS: Nystatin POWDER 15 GM JAR TP ×2 (09:26→20:27)
[2020-06-28] MEDS: Gabapentin 100 MG CAP PO ×3 (09:26→20:27)
[2020-06-28] MEDS: IRON SUCROSE COMPLEX 200 MG in Normal Saline 100 ML 400 MG IVPB (09:26)
--- NOTE | 2020-06-28 11:33 | CMPROGNOTE_ITS ---
- If Service Date Differs Date of service: 06/28/20 Time of Service: 11:33 Care Management Progress Note S/O: Boo was sitting up in his chair when CM met with him. He was polite but not very talkative. Boo stated that he has almost no pain. He shared that the original plan was for him to go home tomorrow but that Dr. Stephenson told him today that we will take it day by day. Boo is unsure if he will need any services at discharge; it will likely depend on whether or not drains remain in place. Boo was running fevers at night but his last episode was in 06/26/20 at 23;35 when it was 37.9. WBC remains elevated at 14.18. A: Boo is a 74 year old male admitted to [facility] on 06/24/20 with Right Colon Cancer. P: Boo will return home once medically cleared. He may need HH RN, if he returns home with drains and or TATE dressing. His will drive him home via private vehicle when ready. He will follow up with his PCP and discharge plan of care. CM will continue to follow.
[2020-06-28 15:35] VITALS: BP 175/82; PULSE 74; RESP 20; TEMP 36.5; O2SAT 97
[2020-06-28] MEDS: Losartan 50 MG TAB 100 MG PO (21:42)
[2020-06-28] MEDS: Melatonin 3 MG TAB PO (21:42)
[2020-06-28 23:22] VITALS: BP 102/66; PULSE 85; RESP 19; TEMP 36.7; O2SAT 98
[2020-06-29] MEDS: Acetaminophen 500 MG TAB 1000 MG PO (06:17)
[2020-06-29 07:17] LABS: Absolute Basophil Count 0.05 10^3/uL (0.0-0.2); Absolute Eosinophil Count 0.85 10^3/uL (0.0-0.7); Absolute Lymphocyte Count 0.83 10^3/uL (1.2-3.4); Absolute Monocyte Count 1.49 10^3/uL (0.1-0.8); Basophils % 0.4; Eosinophils % 6.9; HCT 30.2 % (40.0-50.0); HGB 9.7 g/dL (13.5-17.5); Immature Grans % 0.8; Lymphocytes % 6.7; MCH 30.7 pg (27.0-33.0); MCHC 32.1 % (32.0-36.0); MCV 95.6 fL (80-95); MPV 9.7 fL (8.0-11.0); Monocytes % 12.1; Neutrophils % 73.1; Nucleated RBC 0 %; Platelet Count 297 10^3/uL (130-400); RBC 3.16 10^6/uL (4.36-5.78); RDW 13.2 % (11.8-14.1); RDW-SD 47.2 fL; WBC 12.32 10^3/uL (4.4-10.8)
[2020-06-29 07:21] LABS: Absolute Neutrophil Count 9.01 10^3/uL (1.2-6.7)
[2020-06-29 07:55] VITALS: BP 138/73; PULSE 70; RESP 18; TEMP 37; O2SAT 96
[2020-06-29] MEDS: Nystatin POWDER 15 GM JAR TP (08:36)
[2020-06-29] MEDS: Gabapentin 100 MG CAP PO (08:36)
--- NOTE | 2020-06-29 09:32 | DSE_ITS ---
Date of service: 06/29/20 Time of Service: 09:32 DS: Diagnosis Discharge Diagnosis (1) Colon cancer: Status: Chronic Discharge Plan Disposition Patient Disposition: HOME Condition: Improving Discharge Details Reason For Visit: RIGHT COLON CANCER Admit Date/Time: 06/24/20 12:20 Admit Provider: Vivi Andersen Attending Provider: Vivi Andersen Primary Care Provider: Shital Patel Hospital Course Hospital Course: 74-year-old gentleman with right-sided colon cancer morbid obesity and hypertension who was admitted for an extended right hemicolectomy. He underwent an outpatient bowel prep and was admitted on the day of surgery. He underwent an extended right hemicolectomy. He tolerated procedure well. He had an epidural catheter because of blood pressure control he was placed in the ICU for 1 night for closer observation. He did not manifest instability during that time and was transferred to the main floor the following morning. His wound remained clean and during his hospital stay. He regained his GI function by the and was started on clear liquids. He was advanced to regular diet on the and tolerated this well. His drains were removed. He initially had a low- grade white count but elevation and a low-grade fever which resolved spontaneously. He ambulated well. He was discharged to home tolerating a diet ambulating with a clean and healing incision. He will be seen by Dr. Andersen in the office in about 9 to 10 days. Pathology is pending at the time of his discharge. Home Meds and New Rx's Prescriptions: Continued atorvastatin 10 mg tablet 10 mg PO QHS RF: 0 losartan 100 mg tablet 100 mg PO HS RF: 0 Discontinued diphenhydramine HCl 50 mg capsule 150 mg PO QHS RF: 0 neomycin 500 mg tablet 500 mg PO DIRECTED Qty: 8 RF: 0 metronidazole [Flagyl] 500 mg tablet 500 mg PO .asdirected Qty: 8 RF: 0 ondansetron HCl [Zofran] 4 mg tablet 4 mg PO Q8H PRN (Reason: nausea and vomiting) Qty: 7 RF: 0 polyethylene glycol 3350 17 gram/dose powder 238 g PO DIRECTED Qty: 238 RF: 0 bisacodyl [Dulcolax (bisacodyl)] 5 mg tablet,delayed release (DR/EC) 5 mg PO DIRECTED Qty: 8 RF: 0 ibuprofen 800 mg tablet 800 mg PO PRN RF: 0 Discharge Instructions Instructions: Colorectal Cancer (DC), Acute Wound Care (GEN), Bowel Resection (GEN) Additional Instructions: Please call the general surgery office for a follow-up appointment with Dr. Andersen in about 8 to 10 days. You may shower daily. Cover the drain sites w ith a Band-Aid after your shower. Diet as tolerated. Tylenol as needed for pain. Keep your lifting under 15 pounds for 4 to 6 weeks Stand Alone Forms: Nursing Discharge Form Referrals: Vivi Andersen, [OSTEOPATHIC DOCTOR] - (please call Tuesday to make an appointment for 8 to 10 days.) Activity:: See additional instructio Equipment/Supplies:: No Equipment Needed Diet:: As Tolerated Discharge Orders Discharge Orders: Discharge Order (Routine); Ordered 06/29/20 Ordered By: Almas Stephenson DS: Summary Status at Discharge Functional status at discharge: independent ambulation Overall status at discharge: patient is progressing back to baseline Mental Status: mental status grossly normal Speech and Movement: speech and movement normal Mood: congruent mood Affect: normal affect Time Spent with Patient providing and/or coordinating discharge services: Less than 30 minutes Specific discharge activities: May shower daily, cover drain sites with a b andaid, no lifing over 15lbs for 6 wks Exam Narrative Exam Narrative: No complaints, eating and moving around without assistance. stools are loose but present Const General: cooperative and comfortable Other: afebrile GI Other: Abd obese, bs present wound clean. drains removed today. kimberly intact no tenderness. wbc improving Psych Mental Status: mental status grossly normal Speech and Movement: speech and movement normal Mood: congruent mood Affect: normal affect DS: Data Vitals/I&O Vitals and I&O: Vital Signs Temperature 98.6 F 06/29/20 07:55 Temperature Source Tympanic 06/29/20 07:55 Pulse 70 06/29/20 07:55 Pulse Rhythm Regular 06/29/20 03:21 Pulse 81 06/26/20 11:00 Respiratory Rate 18 06/29/20 07:55 Respiratory Effort Non-Labored 06/29/20 03:21 Respiratory Depth Normal 06/29/20 03:21 Respiratory Pattern Normal 06/29/20 03:21 Blood Pressure 138/73 06/29/20 07:55 Blood Pressure Mean 62 06/26/20 11:00 Blood Pressure Position Supine 06/25/20 16:15 Pulse Oximetry 96 06/29/20 07:55 Respiratory End-tidal CO2 39 06/24/20 14:40 Oxygen Delivery Method Room Air 06/29/20 07:55 Oxygen Flow Rate 0 06/29/20 07:55 Pain Level 0 06/29/20 07:55 Comment 06/27/20 17:21 Intake & Output 06/28/20 06/28/20 06/29/20 11:59 23:59 11:59 Intake Total Output Total Balance - - Intake: Injectate Left Right Output: Drainage Right Other: Urine Color Yellow Urine Appearance Clear Clear Clear Comment as per patient report voiding well into the tiolet Stool Size Moderate Stool Characteristics Liquid Soft Green Liquid Brown Voiding Methods Toilet Data Completed and Pending Labs on day of discharge: Labs from last 24 hours 06/29/20 06:43 WBC 12.32 H RBC 3.16 L Hgb 9.7 L Hct 30.2 L MCV 95.6 H MCH 30.7 MCHC 32.1 RDW 13.2 Plt Count 297 MPV 9.7 Immature Gran % 0.8 Neutrophils % 73.1 Lymphocytes % 6.7 Monocytes % 12.1 Eosinophils % 6.9 Basophils % 0.4 Nucleated RBC % 0 Absolute Neutrophils 9.01 H Absolute Lymphocytes 0.83 L Absolute Monocytes 1.49 H Absolute Eosinophils 0.85 H Absolute Basophils 0.05 PFSH Medical History BMI 40.0-44.9, adult Carpal tunnel syndrome Patient denies having. 06/23/20-I didn't even know it was diagnosed, not denying that I have it, just nobody told me I did Essential hypertension History of smoking Hx of hemorrhoids Hyperlipidemia Prediabetes Rhinitis Sleep disturbance Tubular adenoma (~2012) Surgical History H/O foot surgery heel surgery Left Hx of colectomy (~06/24/20) Hx of colonoscopy Hx of hand surgery LIF Hx of tonsillectomy Family History Mother Heart disease Father No problems noted. Social History Smoking/Tobacco Use Status: Former Tobacco Use Smoking risk assessment performed?: Yes Alcohol Intake: current Alcohol Intake frequency: 3 or more drinks per day Alcohol type: hard liquor Drug use: Never Substance use type: does not use Current gender identity: male Do you feel safe at home: Yes Do you feel safe in your relationship?: Yes
--- NOTE | 2020-06-29 15:38 | PDOC.CMDIS ---
- If Service Date Differs Date of service: 06/29/20 Time of Service: 15:38 LACE Index Scoring Tool - Questions: Length of Stay (in days): 4 - 6 Acuity (Admit via E.D.?): No Comorbidities: Any Tumor E.D. Visits: 0 - Answers: Total Score: 6 Risk of Readmission: Low Risk Care Management Discharge Reason for Hospitalization: Right Colon Cancer Discharge Plan: Boo will be discharged home with no new services. His drains were removed and his wound is clean and healing per surgeon. His will drive him home via private vehicle and he will follow up with his PCP, surgeon and discharge plan of care. Patient/Family Education Needs: Discharge plan, wound care, limitations, follow up plan and Ask Me Three.
== END 2020-06-29 11:57 | disposition home or self-care (01) | DRG 330 ==
LOC: ICU 06-25 14:29 → MS 06-26 18:09 → ICU 06-28 08:57
PROVIDERS: Surgery; Admitting Provider Surgery; PCP Nurse Practitioner Family; Visit Provider Surgery
PROC: 0DTE4ZZ Resection of Large Intestine, Percutaneous Endoscopic Approach (ICD-10-PCS; CPT 44210; principal; 2020-06-24 07:30)
DX: C18.2 Malignant neoplasm of ascending colon (principal); Z68.41 Body mass index [BMI] 40.0-44.9, adult; I10 Essential (primary) hypertension; E78.5 Hyperlipidemia, unspecified; G47.30 Sleep apnea, unspecified; N28.9 Disorder of kidney and ureter, unspecified; Z87.891 Personal history of nicotine dependence; E66.9 Obesity, unspecified; R73.03 Prediabetes; R50.9 Fever, unspecified; D72.829 Elevated white blood cell count, unspecified
CPT/HCPCS: 44140; 36415; 76942; 80053; 97110; 97162; 97530; 99232; 99238; J1650; NC; 71046; 81003; 81015; 85025; 85379; 88307; C1781; J0131; J1100; J1335; J1756; J1885; J2001; J2250; J2370; J2405; J2704; J3475

== ENCOUNTER 2020-06-30 23:10 | Emergency (ER) | payer BC, SELFPAY ==
--- NOTE | 2020-06-30 23:15 | DI.CT_ITS ---
EXAM: CT ABDOMEN PELVIS WO CLINICAL HISTORY: s/p hemicolectomy, ?ileus vs obstruction. TECHNIQUE: Imaging Protocol: Axial computed tomography images with coronal and sagittal reformatted images were created and reviewed. Oral: no COMPARISON: CT CT CHEST/ABD/PEL W from 05/29/[address] CHEST/ABD/PEL W from 05/29/2020 US US ECHOCARDIOGRAM from 06/10/2020 US US ECHOCARDIOGRAM from 06/10/2020 US US RENAL from 06/16/2020 FINDINGS: Exam is limited by patient motion and lack of IV and oral contrast. Lung bases are grossly clear. The liver again shows fatty infiltration. No biliary dilatation. Gal lbladder, spleen, pancreas, adrenals are unremarkable. A hyperdense cyst is noted in the mid to upp er pole of the right kidney, previously evaluated by ultrasound. There are midline skin kimberly. Pa tient is recently status post right hemicolectomy. There is free air seen in the upper abdomen as we ll as postsurgical air in the anterior abdominal wall. There is fluid in the right lower quadrant an d inferior pelvis. There is a collection directly posterior to the anastomosis containing air measur ing 6 x 5 cm. This could represent a developing abscess related to leakage at the anastomotic site. The prostate is normal in size and shows calcifications. The the bladder shows a small amount of air , likely secondary to recent catheterization. The aorta is normal in diameter. Degenerative changes are seen in the spine. The small bowel is mildly dilated consistent with postop ileus. IMPRESSION: Status post right hemicolectomy. Adjacent gas and fluid collection may be secondary to an anastomoti c leak. Free air and and free fluid are present as well. Mild postoperative ileus. RADIATION DOSE DELIVERED: 1,781.89mGy.cm Total DLP DATA REPOSITORY: All CT scans at this facility are submitted to the National Radiology Data Registry (NRDR) Dose Index Registry (DIR) with the [employer] (A[employer]). RADIATION OPTIMIZATION: All CT scans at this facility use at least one of these dose optimization te chniques: automated exposure control; mA and/or kV adjustment per patient size (includes targeted exa ms where dose is matched to clinical indication); or iterative reconstruction.
[2020-06-30 23:20] VITALS: BP 151/67; PULSE 134; RESP 36; TEMP 39.3; O2SAT 99
--- NOTE | 2020-06-30 23:22 | ED.GENADUL_ITS ---
Discharge Plan Disposition Patient Disposition: [facility] Condition: Poor Discharge Details Chief Complaint: Abd Prob Clinical Impression: Anastomotic leak of intestine, Abdominal pain Primary Care Provider: Shital Patel ED Provider: Korey Spear Home Meds and New Rx's Prescriptions: No Action atorvastatin 10 mg tablet 10 mg PO QHS RF: 0 losartan 100 mg tablet 100 mg PO HS RF: 0 Medical Decision Making 74 yo male who underwent right hemicolectomy on 06/24 for colon cancer who was d/c'd to home on 06/29 comes in tonight with increased abdominal pain and distention tonight. States his pain had been relatively well controlled but acutely worsened and hasn't improved so called ems. Denies fevers, chest pain or dyspnea. His incisions on his abdomen are closed with kimberly and show no evidence of infection. His abdomen is distended and he states it is more distended than it was on d/c. He is tender throughout with guarding. Suspect possible free air, sbo vs ileus among other pathology. Will obtain labs, tx his pain and obtain CT, he had a creatinine of 1.66 during his hospital stay so will start with noncontrast ct. pt pain has improved after dilaudid, ct shows likely leakage from anastamosis. Spoke with general surgeon superannuation funds manager Dr. Stephenson and he discussed the case with Dr. Andersen and they do not feel they can manage him and requesting [place] [facility]. Pt updated and will discuss with surgery at [facility] spoke with colorectal surgery Dr. Crabtree who declind transfer and asked I speak with surgery here and have them call to discuss why patient needs to be transferred. Dr. Stephenson surgeon here called and pt will be an ED to ED transfer, Dr. Davis is the accepting surgeon. Pt remains stable, him and his updated. Differential Diagnosis Differential Diagnosis: sbo, ileus, pneumoperitoneum Medical Records Medical records reviewed: Yes I reviewed the patient's medical records. Imaging Data Radiologic Study: Attestation: I personally reviewed and interpreted this imaging study as follows: Imaging: CT Scan Radiologist's impression: IMPRESSION: 1. Prior right hemicolectomy with an enterocolic anastomosis in the right upper quadrant. 6.3 cm x 5.2 cm x 12.6 cm irregularly shaped collection of fluid and gas abutting the posterior margin of the surgical anastomosis and extending inferiorly through the small bowel mesentery. Although nonspecific, this finding is worrisome for leakage from the surgical anastomosis. Surgery consultation is recommended. 2. Small amount of ascites and a small-moderate amount amount of free air, probably at least in part postsurgical although leakage from the surgical anastomosis could in part account for this appearance as well. 3. Fluid and gas throughout the small bowel with moderate dilatation of proximal small bowel loops in the left upper quadrant. Postop ileus suggested in the recent postop period. 4. 2.5 cm indeterminate relatively hyperdense renal lesion with a density of 29 Hounsfield units. A complex cyst is suspected although a solid neoplasm is not excluded. Direct comparison with remote prior imaging is recommended versus follow-up or further evaluation as per institution protocol Lab Data Lab results reviewed: Yes I reviewed the patient's lab results. HPI General Mode of arrival: ambulatory . Date/Time Provider Initiated Documentation: 06/30/20 23:19 . Limitations to Documentation: no limitations . Information obtained by: patient . History of Present Illness 74 year old M presents to the emergency department with the chief complaint of abdominal pain, described as severe, with intensity rated at 8. Quality is described as sharp, and is localized to the abdomen. Patient reports no radiation. Patient started experiencing this hour(s) (6) and it has been constant. No relieving factors improve symptom(s), No exacerbating factors reported . Patient did receive the following treatments prior to arrival, none Related Data Home Medications Medication Instructions Recorded Confirmed atorvastatin 10 mg tablet 10 mg PO QHS 03/26/20 06/24/20 losartan 100 mg tablet 100 mg PO HS 03/26/20 06/24/20 Allergies Allergy/AdvReac Type Severity Reaction Status Date / Time Sulfa (Sulfonamide Allergy Mild tight Unverified 06/24/20 06:32 Antibiotics) feeling in scrotum hydrochlorothiazide AdvReac Mild Verified 06/24/20 06:32 lisinopril AdvReac Mild cough Verified 06/24/20 06:32 Review of Systems All systems reviewed & are unremarkable except as noted in HPI and below Constitutional Constitutional: Denies chills, Denies fever(s) and Denies weakness Cardiovascular Cardiovascular: Denies chest pain and Denies dyspnea Respiratory Respiratory: Denies cough and Denies dyspnea Gastrointestinal Gastrointestinal: Denies vomiting Musculoskeletal Musculoskeletal: Denies joint swelling Neurologic Neurologic: Denies weakness Psychiatric Psychiatric: Denies depression PFSH Medical History BMI 40.0-44.9, adult Carpal tunnel syndrome Patient denies having. 06/23/20-I didn't even know it was diagnosed, not denying that I have it, just nobody told me I did Essential hypertension History of smoking Hx of hemorrhoids Hyperlipidemia Prediabetes Rhinitis Sleep disturbance Tubular adenoma (~2012) Surgical History H/O foot surgery heel surgery Left Hx of colectomy (~06/24/20) Hx of colonoscopy Hx of hand surgery LIF Hx of tonsillectomy Family History Mother Heart disease Father No problems noted. Social History Smoking/Tobacco Use Status: Former Tobacco Use Smoking risk assessment performed?: Yes Alcohol Intake: current Alcohol Intake frequency: 3 or more drinks per day Alcohol type: hard liquor Drug use: Never Substance use type: does not use Current gender identity: male Do you feel safe at home: Yes Do you feel safe in your relationship?: Yes Exam Const General: other (in pain) Orientation: alert HENMT Head: normal to inspection Ears: external ears normal General nose exam: external nose normal Mouth: moist mucous membranes Eyes General: appearance normal, both eyes and all related structures Neck Neck: normal visual inspection Resp Effort & Inspection: normal respiratory effort and able to speak in complete sentences Cardio Rate: regular rate GI Palpation: tender Skin General skin exam: no rashes or lesions noted Neuro General: patient alert and patient oriented x3 Extrem General: normal to inspection Psych Mental Status: mental status grossly normal
[2020-06-30] MEDS: Normal Saline 1,000 ML 1000 ML IV (23:40)
[2020-06-30 23:43] LABS: Abs Immature Grans 0.38 10^3/uL (0.0-0.06); Absolute Basophil Count 0.05 10^3/uL (0.0-0.2); Absolute Eosinophil Count 0.08 10^3/uL (0.0-0.7); Absolute Lymphocyte Count 1.28 10^3/uL (1.2-3.4); Absolute Monocyte Count 0.37 10^3/uL (0.1-0.8); Basophils % 0.5; Eosinophils % 0.9; HCT 35.3 % (40.0-50.0); HGB 11.1 g/dL (13.5-17.5); Immature Grans % 4.1; Lymphocytes % 13.8; MCH 30.3 pg (27.0-33.0); MCHC 31.4 % (32.0-36.0); MCV 96.4 fL (80-95); MPV 9.2 fL (8.0-11.0); Neutrophils % 76.7; Nucleated RBC 0 %; Platelet Count 440 10^3/uL (130-400); RBC 3.66 10^6/uL (4.36-5.78); RDW 13.8 % (11.8-14.1); RDW-SD 48.9 fL; WBC 9.26 10^3/uL (4.4-10.8)
[2020-06-30] MEDS: HYDROmorphone 2 MG/ML VIAL 1 MG IVP (23:45)
[2020-06-30 23:58] LABS: Lactate 2.9 mmol/L (0.6-1.4)
[2020-07-01] VITALS (26 sets, daily range): BP systolic 102–148; BP diastolic 42–59; PULSE 91–119; RESP 16–34; TEMP 36.7–39.3; O2SAT 91–96
[2020-07-01 00:05] LABS: ALT 33 U/L (16-63); AST 41 U/L (15-37); Albumin 2.2 g/dL (3.4-5.0); Alkaline Phosphatase 90 U/L (46-116); Anion Gap 10.3 mmol/L (3-11); BUN 18 mg/dL (7-18); Bilirubin, Direct 0.95 mg/dL (0.00-0.20); Bilirubin, Total 1.6 mg/dL (0.2-1.0); CO2 23.7 mmol/L (21.0-32.0); Calcium 8.5 mg/dL (8.5-10.1); Chloride 101 mmol/L (98-107); Estimated GFR 45.87 (mL/min/1.73m2); Glucose 156 mg/dL (74-106); Potassium 3.3 mmol/L (3.5-5.1); Sodium 135 mmol/L (136-145); Total Protein 6.8 g/dL (6.4-8.2)
[2020-07-01 00:17] LABS: Lipase 98 U/L (73-393)
[2020-07-01 00:26] LABS: INR 1.1 (0.9-1.1); PTT Activated 23.7 sec (21.0-27.5); Prothrombin Time 10.8 sec (9.3-11.0)
--- NOTE | 2020-07-01 00:36 | DI.VRAD_ITS ---
Addendum created by Christiano Duran MD on 07/01/2020 1:13:36 AM EST: [facility] operation control confirms at 12:58 AM EST on 07/01/2020 that Korey Stewart has received the preliminary report. Initial report created on 07/01/2020 12:36:35 AM EST: PROCEDURE INFORMATION: Exam: CT Abdomen And Pelvis Without Contrast Exam date and time: 06/30/2020 11:53 PM Age: 74 years old Clinical indication: Abdominal pain; Generalized; Prior surgery; Surgery date: 3-7 days post-operative; Surgery type: Colectomy 06/24/20; Patient HX: S/P hemicolectomy, ? ileus vs obstruction TECHNIQUE: Imaging protocol: Computed tomography of the abdomen and pelvis without contrast. Radiation optimization: All CT scans at this facility use at least one of these dose optimization techniques: automated exposure control; mA and/or kV adjustment per patient size (includes targeted exams where dose is matched to clinical indication); or iterative reconstruction. COMPARISON: CT CHEST/ABD/PEL W 05/29/2020 10:08 AM FINDINGS: Limitations: Motion artifact. Lungs: Lung bases partially obscured by motion but grossly clear, as seen. Liver: Grossly unremarkable unenhanced liver. Gallbladder and bile ducts: Gallbladder moderately distended. No calcified gallstones or biliary dilatation. Pancreas: Grossly unremarkable unenhanced pancreas. Spleen: Grossly unremarkable unenhanced spleen. Adrenal glands: Normal appearing adrenal glands. Kidneys and ureters: 2.5 cm indeterminate relatively hyperdense renal lesion with a density of 29 Hounsfield units on image 384 of series 5. Complex cyst? Solid neoplasm? No radiopaque renal calculi or hydronephrosis. No obstructing ureteral stones. Stomach and bowel: No oral contrast. Stomach partially decompressed. Fluid and gas throughout the small bowel with moderate dilatation of proximal small bowel loops in the left upper quadrant. Postop ileus suggested in the recent postop period. Prior right hemicolectomy with an enterocolic anastomosis in the right upper abdomen. Hazy fat stranding and fluid adjacent to the surgical anastomosis. 6.3 cm x 5.2 cm x 12.6 cm irregularly shaped collection of fluid and gas abutting the posterior margin of the surgical anastomosis and extending inferiorly within the mesenteric fat. Surgical anastomosis? Downstream colon largely well evacuated of fecal material and collapsed. Small amount of fluid in the downstream colon. No evidence of diverticulitis or colitis. Appendix: Presumed surgically absent at the time of right hemicolectomy. Correlation with surgical history recommended. Intraperitoneal space: Small amount of ascites, most concentrated in the pelvis and in the perihepatic space. Small-moderate amount of free intraperitoneal air in the anterior upper abdomen. 6.3 cm x 5.3 cm x 12.6 cm irregularly shaped collection of fluid and gas abutting the posterior margin of the right upper quadrant enterocolic surgical anastomosis and extending inferiorly within the mesenteric fat. Vasculature: Normal caliber abdominal aorta. Lymph nodes: No pathologically enlarged mesenteric, retroperitoneal, or pelvic sidewall lymph nodes. Urinary bladder: Urinary bladder partially decompressed. Small amount of gas in the urinary bladder, probably from recent catheterization. Correlation with procedure history recommended. Reproductive: Normal-sized prostate gland and seminal vesicles. Coarse prostate calcifications. Bones/joints: No acute fracture seen among the bones of the abdomen or pelvis. Spinal degenerative change with large anterior osteophytes flowing along the anterior spinal margin through the lower thoracic region. Moderate discogenic degeneration at L5-S1. Soft tissues: Small fat containing bilateral inguinal region hernias. Midline skin kimberly along the course of a laparotomy incision with associated subcutaneous density and small foci of of subcutaneous gas but no associated subcutaneous fluid collection. IMPRESSION: 1. Prior right hemicolectomy with an enterocolic anastomosis in the right upper quadrant. 6.3 cm x 5.2 cm x 12.6 cm irregularly shaped collection of fluid and gas abutting the posterior margin of the surgical anastomosis and extending inferiorly through the small bowel mesentery. Although nonspecific, this finding is worrisome for leakage from the surgical anastomosis. Surgery consultation is recommended. 2. Small amount of ascites and a small-moderate amount amount of free air, probably at least in part postsurgical although leakage from the surgical anastomosis could in part account for this appearance as well. 3. Fluid and gas throughout the small bowel with moderate dilatation of proximal small bowel loops in the left upper quadrant. Postop ileus suggested in the recent postop period. 4. 2.5 cm indeterminate relatively hyperdense renal lesion with a density of 29 Hounsfield units. A complex cyst is suspected although a solid neoplasm is not excluded. Direct comparison with remote prior imaging is recommended versus follow-up or further evaluation as per institution protocol. Dictated and Authenticated by: Christiano Duran MD. Ordering:JUNIOR Nair MD
[2020-07-01 00:54] LABS: Diff Comment Agrees w/ Instrument
[2020-07-01 00:55] LABS: RBC Morphology Normal
[2020-07-01] MEDS: ACETAMINOPHEN 1,000 MG/100 ML BTL 400 MG IVPB (01:03)
[2020-07-01] MEDS: PIPERACILLIN/TAZO 4.5 GM in Normal Saline 100 ML IVPB (01:22)
[2020-07-01] MEDS: Normal Saline 1,000 ML 150 ML IV (01:30)
--- NOTE | 2020-07-01 02:10 | NUR.NOTE ---
Addendum entered by Lizeth Porter RN 07/01/20 06:11: Dr. Spear did speak to patient's multiple times during patient's ER visit prior to transfer and kept her aware of patient's situation and POC. Original Note: Nursing Note: Dr. Spear discussed the need for transfer with patient after getting CT results back and talking with patients surgeon. Patient was given the option of [facility] or [facility]. Patient chose [facility]. Waiting for a call back from them to discuss transfer. Patient aware he is waiting for Dr. Spear to make arrangements and then will be back to talk with him. Patient states he needs to get in touch with his . I let patient know Dr. Spear would call his and discuss results and POC once a plan was made. I asked patient if he wanted to call and he said no that's okay. Patient c/o his bottom hurting assisted patient to reposition. Patient restless and appears to be getting agitated. Assisted patient with urinal to get urine specimen , unable to void. Patient now asking for his cell phone. I asked where it was ? Patient gruffly said over there with those things I would imagine and pointed to a black bag on the counter. I took patients cell phone out of the bag and gave it to him and continued to hang his medications. Patient was over heard telling the person on the phone he was in his office and the female on the other end said to patient , I thought you were at the front door. Patient went on to tell this person that he had such great care when he was on the second floor and now forget it no one gives a shit. States he can't get anyone to call you, they just want to transfer me. Person on the other end of the phone asked patient if he had seen his surgeon? Patient said no they just want to transfer me. Dr. Spear again discussed transfer to [facility] with patient. Let patient know they had accepted him and he would be going to the ER there to see surgery. Awaiting EMS for transport. Patient gave verbal consent to [facility]ORE for transfer to [facility].
== END 2020-07-01 02:44 | disposition short-term general hospital (02) ==
PROVIDERS: Emergency Provider Emergency Medicine; PCP Nurse Practitioner Family
DX: K91.89 Other postprocedural complications and disorders of digestive system (principal); Y83.2 Surgical operation with anastomosis, bypass or graft as the cause of abnormal reaction of the patient, or of later complication, without mention of misadventure at the time of the procedure; R14.0 Abdominal distension (gaseous); Z90.49 Acquired absence of other specified parts of digestive tract
CPT/HCPCS: 36415; 80053; 83690; 87040; 96361; 96365; 96367; 96375; 99285; 74176; 81003; 82248; 83605; 85025; 85610; 85730; J0131; J2543

== ENCOUNTER 2020-08-01 16:17 | Outpatient (REF) | payer BC, SELFPAY ==
[2020-08-04 16:09] LABS: COVID-19 RT-PCR UVMMC Result Negative (Negative)
== END 2020-08-01 16:18 | disposition home or self-care (01) ==
LOC: LBN 16:17
PROVIDERS: PCP Nurse Practitioner Family; Visit Provider Nurse Practitioner Adult Health
DX: Z20.822 Contact with and (suspected) exposure to COVID-19 (principal)
CPT/HCPCS: U0003

== ENCOUNTER 2020-08-06 16:52 | Observation (INO) | payer BC, MEDICARE, SELFPAY ==
[2020-08-06] VITALS (42 sets, daily range): BP systolic 99–144; BP diastolic 43–72; PULSE 59–68; RESP 10–25; TEMP 36.2–36.6; O2SAT 96–100
--- NOTE | 2020-08-06 16:59 | W.ED.GENAD ---
Discharge Plan Disposition Condition: Stable Discharge Details Chief Complaint: GenMedical Admit Date/Time: 08/06/20 22:03 Admit Provider: Chris Salgado Attending Provider: Chris Salgado Primary Care Provider: Shital Patel ED Provider: Lisa Fernandez Discharge Instructions Activity:: Activity as Tolerated Equipment/Supplies:: No Equipment Needed Diet:: As Tolerated Discharge Orders Discharge Orders: Discharge Order (Routine); Ordered 08/08/20 Ordered By: Umm Bailey Discharge Data Discharge Date/Time-TO BE ENTERED AT DEPARTURE: 08/06/20 23:04 Medical Decision Making <SHARON Perez - Last Filed: 08/11/20 17:13> Patient is a pleasant 75 year old male presenting today with c/c of foul smelling discharge from abdominal wound. Patient has been receiving care at rehabilitation center, they have been doing wet to dry dressing changes. They stated that the discharge was concerning for stool. Review of [facility] record shows that the patient underwent a right hemicolectomy on . On 06/30, he was seen in the [facility] at which time he was diagnosed with an anastomotic leak and was transferred to [facility]. While there, patient underwent abdominal wall mesh explant, exploratory laparotomy, small bowel and transverse colon resection and ABThera placement. He subsequently underwent bedside ileocolic anastomosis with double barrel ileostomy. Multiple abdominal washouts were performed. Wound was initially treated with wound VAC. However, after the time of discharge, this stopped being successful and patient was transition to the wet-to-dry dressings. While at [facility] he was noted to have a acute kidney injury which was treated with fluids. Patient did receive his COVID-19 vaccine today. He states that he has been fatigued since. He denies any fevers or chills. States that he believes he has not been taking in adequate water intake and is unclear how much he should be drinking. Patient does have a urinary catheter in place. He denies any abdominal pain. No nausea or vomiting. On exam, patient appears chronically ill. Patient is morbidly obese. Ileostomy appears to be draining well. He has no abdominal pain on exam. I was able to compare wound currently compared to when he was seen last at [facility] and it does show notable healing with good secondary intention. However, along the right side of the open wound wall, there is a small focal area from which a brown feculent smelling discharge is emanating. I am concerned about a potential fistula. Patient does not have any indications to suggest an acute surgical abdomen. He does not appear to be septic. As the patient had multiple medical complications I do feel that labs to be appropriate. We will hydrate the patient as he feels that he has been getting dehydrated. Plan to obtain a CT for further evaluation of his concerns on his physical exam for potential fistula. Likely, this would not show a fistula but I am concerned, particular given his recent complications, for free air or abscess formation. Spoke with patient's , Gauri at [phone] Labs reviewed. Patient is leukocytosis a white count of 13. Hemoglobin 10.3 which is stable for the patient. Lactate 1.5. Sodium 124. Patient does have an elevated anion gap of 14.3. BUN is elevated 66. Creatinine is elevated at 4.5. I am concerned with the patient's Acute kidney injury that this likely proceed with dehydration, particular given the BUN. Will more aggressively hydrate the patient and will obtain a noncontrast CT of the abdomen. FINDINGS: Lungs: Lung bases are clear. Liver: Normal. No mass. Gallbladder and bile ducts: Normal. No calcified stones. No ductal dilation. Pancreas: Normal. No ductal dilation. Spleen: Normal. No splenomegaly. Adrenal glands: Normal. No mass. Kidneys and ureters: 27 mm exophytic hyperdense cyst on the right kidney is unchanged. Left kidney and ureters are unremarkable. Stomach and bowel: Sigmoid diverticulosis, without evidence of diverticulitis. Right upper quadrant colostomy. No bowel obstruction. Stomach is unremarkable. Appendix: No evidence of appendicitis. Intraperitoneal space: Unremarkable. No free air. No significant fluid collection. ECHO FORBES Preliminary Radiology Report METAL MOLDER (QA) DISCREPANCY? If there is a discrepancy between the preliminary and final interpretation, please notify [facility] via [email or web address]. If you do not have access to our QA portal, call our QA team at [phone] CONFIDENTIALITY STATEMENT This report is intended only for the use of the referring physician, and only in accordance with law, If you received this in error, call [phone] Page 2 of 2 Vasculature: Unremarkable. No abdominal aortic aneurysm. Lymph nodes: Unremarkable. No enlarged lymph nodes. Urinary bladder: Urinary bladder is nondistended. Reproductive: Benign prostatic calcifications. Bones/joints: Mild L4-L5 and moderate L5-S1 degenerative disc disease. Lower thoracic spine DISH. No acute fracture or focal suspicious osseous lesion. Soft tissues: Surgical changes deep to the midline anterior abdominal open skin wound. No discrete fluid collection. There is adjacent bowel. IMPRESSION: 1. Postsurgical changes of the midline anterior abdominal wall. No evidence of abscess. There is adjacent bowel and fistula cannot be excluded. 2. No bowel obstruction. Have requested consultation with [facility] general surgery to discuss the concerns of the physical exam and to discuss if they feel antibiotics are warranted at this point. He continues to be resting comfortably Consulted with Dr. Davis. He recommended f/u in clinic tomorrow. Did not recommend antibiotics at this time. Has the area continues to be free-flowing and there is no abscess or evidence of consolidation, he did not recommend emergent intervention at this time. Patient is unable to continue with hydration if discharged back to his current living situation. Plan to admit for his acute kidney injury for continued hydration. Patient also has urinary tract infection and will need antibiotic coverage for this Consulted with Dr. Salgado who agrees to admission. <Jacinto Ortiz MD - Last Filed: 08/06/20 19:55> Patient seen, examined [id number], discussed with Ms. Fernandez. I agree with her assessment and plan. HPI <SHARON Perez - Last Filed: 08/11/20 17:13> General Mode of arrival: EMS. Date/Time Provider Initiated Documentation: 08/06/20 16:53. Limitations to Documentation: no limitations. Information obtained by: patient, EMS, RN notes reviewed and old records reviewed. History of Present Illness 75 year old M presents to the emergency department with the chief complaint of foul smelling discharge from surgical incision, described as mild (patient denies any pain), and is localized to the abdomen. Patient reports no radiation. Patient started experiencing this minute(s) No relieving factors improve symptom(s), Patient notes weakness (reports generalized fatigue); denies chest pain, fever/chills, loss of appetite, nausea/vomiting, rash and shortness of breath. Patient did receive the following treatments prior to arrival, none Related Data Home Medications Medication Instructions Recorded Confirmed Eliquis 5 mg PO BID 08/06/20 08/06/20 melatonin 3 mg PO HS 08/06/20 08/06/20 metoprolol succinate 200 mg PO DAILY AM 08/06/20 08/06/20 pantoprazole 40 mg PO DAILY 08/06/20 08/06/20 cefpodoxime 200 mg PO HS #8 tab 08/08/20 cyanocobalamin (vitamin B-12) 1,000 mcg PO DAILY #0 tab 08/08/20 [Vitamin B-12] Previous Rx's Medication Instructions Recorded cefpodoxime 200 mg PO HS #8 tab 08/08/20 cyanocobalamin (vitamin B-12) 1,000 mcg PO DAILY #0 tab 08/08/20 [Vitamin B-12] Allergies Allergy/AdvReac Type Severity Reaction Status Date / Time Sulfa (Sulfonamide Allergy Mild tight Unverified 08/06/20 17:24 Antibiotics) feeling in scrotum hydrochlorothiazide AdvReac Mild Verified 08/06/20 17:24 lisinopril AdvReac Mild cough Verified 08/06/20 17:24 General PAMELA: 2 Review of Systems <SHARON Perez - Last Filed: 08/11/20 17:13> Constitutional Constitutional: Reports as per HPI, Denies chills, Reports fatigue (attributes to COVID vaccine this AM), Denies fever(s) and Denies headache(s) ENT Ears, Nose, Mouth, and Throat: Denies headache(s) Cardiovascular Cardiovascular: Reports as per HPI, Denies chest pain and Denies dyspnea Respiratory Respiratory: Reports as per HPI, Denies cough and Denies dyspnea Gastrointestinal Gastrointestinal: Reports as per HPI Genitourinary Genitourinary: Reports as per HPI (no urinary complaints, catheter in place) Musculoskeletal Musculoskeletal: Reports as per HPI and Denies back pain Integumentary/Breasts Skin/Breast: Reports as per HPI and Reports wounds Neurologic Neurologic: Reports as per HPI and Denies headache(s) Endocrine Endocrine: Reports fatigue (attributes to COVID vaccine this AM) PFSH <SHARON Perez - Last Filed: 08/11/20 17:13> Medical History (Updated 08/08/20 @ 15:42 by Raegan Campos NP) BMI 40.0-44.9, adult Carpal tunnel syndrome Patient denies having. 1/18/21-I didn't even know it was diagnosed, not denying that I have it, just nobody told me I did Essential hypertension History of smoking Hx of hemorrhoids Hyperlipidemia Palliative care patient Prediabetes Rhinitis Sleep disturbance Tubular adenoma (~2012) Surgical History H/O foot surgery heel surgery Left Hx of colectomy (~06/24/20) Hx of colonoscopy Hx of hand surgery LIF Hx of tonsillectomy Family History Mother Heart disease Father No problems noted. Social History Smoking/Tobacco Use Status: Former Tobacco Use Smoking risk assessment performed?: Yes Alcohol Intake: current Alcohol Intake frequency: 3 or more drinks per day Alcohol type: hard liquor Drug use: Never Substance use type: does not use Current gender identity: male Do you feel safe at home: Yes Do you feel safe in your relationship?: Yes Exam <SHARON Perez - Last Filed: 08/11/20 17:13> Const General: cooperative, healthy appearing, uncomfortable, no acute distress and well developed Nutritional Appearance: well nourished and obese Orientation: alert and awake HENAZ Head: normal to inspection Mouth: moist mucous membranes Resp Effort & Inspection: normal respiratory effort, able to speak in complete sentences and no respiratory distress Auscultation: clear to auscultation bilaterally, no rales, no rhonchi and no wheezes Cardio Rate: regular rate Rhythm: regular rhythm Heart Sounds: S1 normal and S2 normal GI Inspection: abnormal to inspection (As below) and no visible pulsation Palpation: soft, no hepatosplenomegaly, not firm, no guarding, no masses, nontender and No ascites Percussion: normal to percussion Auscultation: normal bowel sounds Abdomen image: 1. 2. #1 is area of healing wound. Appears to be healing well with secondary intention. #2 is focal area of feculent smelling brownish discharge. This area was swabbed for sampling. No pain elicited with palpation. No discharge is elicited with palpation. No palpable area of fluctuance or focal area to suggest an abscess. No surrounding erythema, warm. Skin appears healthy. Back/Spine/Pelvis Back: no CVA tenderness Skin General skin exam: no rashes or lesions noted Trauma: no lacerations or abrasions Neuro General: patient alert and patient awake Cognition: normal cognition Speech: speech normal Psych Appearance: grossly normal and well kempt Mental Status: mental status grossly normal Speech and Movement: speech and movement normal
[2020-08-06] MEDS: Normal Saline 1,000 ML 500 ML IV (17:28)
[2020-08-06 17:29] LABS: Lactate 1.5 mmol/L (0.6-1.4)
[2020-08-06 17:31] LABS: Abs Immature Grans 0.24 10^3/uL (0.0-0.06); Absolute Basophil Count 0.07 10^3/uL (0.0-0.2); Basophils % 0.5; HCT 31.8 % (40.0-50.0); HGB 10.3 g/dL (13.5-17.5); Immature Grans % 1.8; Lymphocytes % 9.2; MCH 29.9 pg (27.0-33.0); MCHC 32.4 % (32.0-36.0); MCV 92.4 fL (80-95); MPV 10.2 fL (8.0-11.0); Monocytes % 6.8; Neutrophils % 78.7; Nucleated RBC 0 %; Platelet Count 345 10^3/uL (130-400); RBC 3.44 10^6/uL (4.36-5.78); RDW 13.8 % (11.8-14.1); RDW-SD 47.3 fL; WBC 13.21 10^3/uL (4.4-10.8)
[2020-08-06 17:33] LABS: Absolute Lymphocyte Count 1.22 10^3/uL (1.2-3.4)
[2020-08-06 17:50] LABS: ALT 40 U/L (16-63); AST 42 U/L (15-37); Albumin 2.9 g/dL (3.4-5.0); Alkaline Phosphatase 125 U/L (46-116); Anion Gap 14.3 mmol/L (3-11); BUN 66 mg/dL (7-18); Bilirubin, Total 0.8 mg/dL (0.2-1.0); CO2 19.7 mmol/L (21.0-32.0); Chloride 90 mmol/L (98-107); Estimated GFR 12.88 (mL/min/1.73m2); Glucose 130 mg/dL (74-106); Magnesium 2.3 mg/dL (1.8-2.4); Potassium 4.7 mmol/L (3.5-5.1); Total Protein 8.8 g/dL (6.4-8.2)
[2020-08-06 17:54] LABS: CREATININE 4.5 mg/dL (0.70-1.30); Sodium 124 mmol/L (136-145)
--- NOTE | 2020-08-06 19:29 | DI.CT_ITS ---
EXAM: CT ABDOMEN PELVIS WO CLINICAL HISTORY: concerned for post operative complication, no pain. TECHNIQUE: Imaging Protocol: Axial computed tomography images with coronal and sagittal reformatted images were created and reviewed. COMPARISON: CT CT ABDOMEN PELVIS WO from 06/30/2020 FINDINGS: ABDOMEN: Lung Bases: Normal where visualized. Liver: Normal density. No measurable mass. Gallbladder and biliary tract: No radiodense calculus or biliary ductal dilation. Pancreas: Normal density, no abnormal calcifications or inflammatory process. Spleen: Normal. Kidneys: Normal size, contour and axis.No radiodense stones or obstructive uropathy. There is an unch anged 2.7 cm hyperdense exophytic cyst on the right kidney. Adrenal glands: No mass is seen. Lymph nodes: Within normal limits. Abdominal Aorta: Abdominal portion non-dilated. PELVIS: Bladder:Incompletely distended but grossly unremarkable. Bowel: No obstruction or bowel wall thickening. No evidence of acute appendicitis. Sigmoid diverticu losis but no evidence of acute diverticulitis. There is a right upper quadrant colostomy. Peritoneal cavity: No ascites, fluid collection or mesenteric inflammatory response. No free air. Reproductive organs: Within normal limits. Bones: Within normal limits. Soft Tissues: There are midline postsurgical changes in the anterior abdominal wall. There is now an open wound in the midline. No focal fluid collection is seen to suggest an abscess. There is bowel which lies adjacent to the wound. No air is seen in the soft tissues but, a fistula cannot be exclu ded. IMPRESSION: 1. Postsurgical changes in the anterior midline abdominal wall. No abscess. No subcutaneous air is seen at this time. 2. No evidence of bowel obstruction. RADIATION DOSE DELIVERED: 1,437.04mGy.cm Total DLP DATA REPOSITORY: All CT scans at this facility are submitted to the National Radiology Data Registry (NRDR) Dose Index Registry (DIR) with the [employer] (ACR). RADIATION OPTIMIZATION: All CT scans at this facility use at least one of these dose optimization te chniques: automated exposure control; mA and/or kV adjustment per patient size (includes targeted exa ms where dose is matched to clinical indication); or iterative reconstruction.
[2020-08-06] MEDS: Normal Saline 1,000 ML 1000 ML IV (19:38)
--- NOTE | 2020-08-06 19:58 | DI.VRAD_ITS ---
PROCEDURE INFORMATION: Exam: CT Abdomen And Pelvis Without Contrast Exam date and time: 08/06/2020 6:50 PM Age: 75 years old Clinical indication: Other: Post op, eval for complication; Prior surgery; Surgery date: <1 month; Surgery type: Abdominal/ostomy; Patient HX: Post op for abdominal surgery, <1month. Possible fistula into open wound, ? free air/abcess. TECHNIQUE: Imaging protocol: Computed tomography of the abdomen and pelvis without contrast. Radiation optimization: All CT scans at this facility use at least one of these dose optimization techniques: automated exposure control; mA and/or kV adjustment per patient size (includes targeted exams where dose is matched to clinical indication); or iterative reconstruction. COMPARISON: CT ABDOMEN PELVIS WO 06/30/2020 11:46 PM FINDINGS: Lungs: Lung bases are clear. Liver: Normal. No mass. Gallbladder and bile ducts: Normal. No calcified stones. No ductal dilation. Pancreas: Normal. No ductal dilation. Spleen: Normal. No splenomegaly. Adrenal glands: Normal. No mass. Kidneys and ureters: 27 mm exophytic hyperdense cyst on the right kidney is unchanged. Left kidney and ureters are unremarkable. Stomach and bowel: Sigmoid diverticulosis, without evidence of diverticulitis. Right upper quadrant colostomy. No bowel obstruction. Stomach is unremarkable. Appendix: No evidence of appendicitis. Intraperitoneal space: Unremarkable. No free air. No significant fluid collection. Vasculature: Unremarkable. No abdominal aortic aneurysm. Lymph nodes: Unremarkable. No enlarged lymph nodes. Urinary bladder: Urinary bladder is nondistended. Reproductive: Benign prostatic calcifications. Bones/joints: Mild L4-L5 and moderate L5-S1 degenerative disc disease. Lower thoracic spine DISH. No acute fracture or focal suspicious osseous lesion. Soft tissues: Surgical changes deep to the midline anterior abdominal open skin wound. No discrete fluid collection. There is adjacent bowel. IMPRESSION: 1. Postsurgical changes of the midline anterior abdominal wall. No evidence of abscess. There is adjacent bowel and fistula cannot be excluded. 2. No bowel obstruction. Dictated and Authenticated by: Chris Castro MD. Ordering:RITA Gonzalez MD
[2020-08-06 20:27] LABS: Bilirubin Negative (Negative); Blood Moderate (Negative); Clarity Cloudy (Clear); Glucose Negative (Negative); Ketones Negative (Negative); Leukocyte Esterase Moderate (Negative); Nitrite Negative (Negative); Specific Gravity 1.015 (1.005-1.025); Urobilinogen 0.2 EU/dL (Up TO 0.2); pH 5.5 (5-8)
[2020-08-06 20:35] LABS: WBC >50 HPF (0-5)
[2020-08-06 20:36] LABS: Bacteria Many HPF (Negative); C & S Indicated? Yes; Casts Negative LPF (Negative); Crystals Negative HPF (Negative); Epithelial Cells Rare HPF (Negative); Mucus Negative (Negative)
[2020-08-06 20:56] LABS: Anion Gap 13.9 mmol/L (3-11); BUN 62 mg/dL (7-18); CO2 18.1 mmol/L (21.0-32.0); Calcium 7.9 mg/dL (8.5-10.1); Chloride 96 mmol/L (98-107); Estimated GFR 11.95 (mL/min/1.73m2); Glucose 105 mg/dL (74-106); Potassium 4.3 mmol/L (3.5-5.1); Sodium 128 mmol/L (136-145)
[2020-08-06 21:00] LABS: CREATININE 4.8 mg/dL (0.70-1.30)
--- NOTE | 2020-08-06 21:34 | W.PM.HP.N ---
Date of service: 08/06/20 Time of Service: 21:34 Assessment and Plan Assessment and plan (1) Azotemia: Status: Acute Assessment and plan: Likely from dehydration. Even though BUN/Cr ratio is < 20, the increase in BUN is proportionally greater than the Creatinine over baseline, and the history suggests dehydration. Will hydrate and track. As to apparent fistula will contact [facility] in AM for clinic visit. Incidental pyuria, will give dose Rocephin pending cxx. Note that I cannot determine why he is on Eliquis but has been confirmed by staff. Will continue as is. It is noted that he was referred to cardiology by [facility] so perhaps they will have further info. History of Present Illness History of Present Illness Chief Complaint: weakness Narrative: 75 male s/p right hemicolectomy for unresectable polyp, complicated by anastomotic leak eventuating in complex wound infection. D/c'ed to [facility], 1 week [employer]. Sent here for concern of abnormal d/c from wound. 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 Case reviewed with [facility] who requests visit to outpatient clinic in AM, no Abx. In meantime patient noted to have azotemia, and admits to poor PO intake. BUN 66, Creat 4.5, U/A with pyuria and no casts. ER reports [facility] unable to provide IVF, patient is therefore admitted for hydration and monitoring of renal function. Patient denies abd pain or urinary symptoms. Only complaint is generalized weakness and poor appetite. Review of Systems All systems reviewed & are unremarkable except as noted in HPI and below PFSH Medical History BMI 40.0-44.9, adult Carpal tunnel syndrome Patient denies having. 06/23/20-I didn't even know it was diagnosed, not denying that I have it, just nobody told me I did Essential hypertension History of smoking Hx of hemorrhoids Hyperlipidemia Prediabetes Rhinitis Sleep disturbance Tubular adenoma (~2012) Surgical History H/O foot surgery heel surgery Left Hx of colectomy (~06/24/20) Hx of colonoscopy Hx of hand surgery LIF Hx of tonsillectomy Family History Mother Heart disease Father No problems noted. Social History Smoking/Tobacco Use Status: Former Tobacco Use Smoking risk assessment performed?: Yes Alcohol Intake: current Alcohol Intake frequency: 3 or more drinks per day Alcohol type: hard liquor Drug use: Never Substance use type: does not use Current gender identity: male Do you feel safe at home: Yes Do you feel safe in your relationship?: Yes Meds Home Medications and Allergies Allergies Allergy/AdvReac Type Severity Reaction Status Date / Time Sulfa (Sulfonamide Allergy Mild tight Unverified 08/06/20 17:24 Antibiotics) feeling in scrotum hydrochlorothiazide AdvReac Mild Verified 08/06/20 17:24 lisinopril AdvReac Mild cough Verified 08/06/20 17:24 Home Medications Medication Instructions Recorded Confirmed Type apixaban [Eliquis] 5 mg PO BID 08/06/20 08/06/20 History melatonin 3 mg PO HS 08/06/20 08/06/20 History metoprolol succinate 200 mg PO DAILY AM 08/06/20 08/06/20 History pantoprazole 40 mg PO DAILY 08/06/20 08/06/20 History Exam Narrative Exam Narrative: 99/50, 63, 36.6, 15, 98% RA. HEENT dry oral mucosa; neck supple; lungs clear; heart RRR; abdomen soft and NT, ostomy with semi formed stool, dressing on wound is not taken down but is dry; extremities w/o edema, neuro Ox3, moves all 4s Results Labs Result diagrams: 08/06/20 17:20 08/06/20 20:44 Labs: Laboratory Results - last 24 hr 08/06/20 08/06/20 08/06/20 17:20 17:20 17:20 WBC 13.21 H RBC 3.44 L Hgb 10.3 L Hct 31.8 L MCV 92.4 MCH 29.9 MCHC 32.4 RDW 13.8 Plt Count 345 MPV 10.2 Immature Gran % 1.8 Neutrophils % 78.7 Lymphocytes % 9.2 Monocytes % 6.8 Eosinophils % 3.0 Basophils % 0.5 Nucleated RBC % 0 Absolute Neutrophils 10.40 H Absolute Lymphocytes 1.22 Absolute Monocytes 0.90 H Absolute Eosinophils 0.40 Absolute Basophils 0.07 VBG Lactate 1.5 H Sodium 124 L Potassium 4.7 Chloride 90 L Carbon Dioxide 19.7 L Anion Gap 14.3 H BUN 66 H Creatinine 4.5 H* Estimated GFR/1.73 m2 12.88 Glucose 130 H Calcium 9.0 Magnesium 2.3 Total Bilirubin 0.8 AST 42 H ALT 40 Alkaline Phosphatase 125 H Total Protein 8.8 H Albumin 2.9 L Urine Color Urine Clarity Urine pH Ur Specific [place] Urine Protein Urine Ketones Urine Blood Urine Nitrite Urine Bilirubin Urine Urobilinogen Ur Leukocyte Esterase Urine RBC Urine WBC Ur Epithelial Cells Urine Crystals Urine Bacteria Urine Casts Urine Mucus Ur Culture Indicated? Urine Glucose 08/06/20 08/06/20 20:20 20:44 WBC RBC Hgb Hct MCV MCH MCHC RDW Plt Count MPV Immature Gran % Neutrophils % Lymphocytes % Monocytes % Eosinophils % Basophils % Nucleated RBC % Absolute Neutrophils Absolute Lymphocytes Absolute Monocytes Absolute Eosinophils Absolute Basophils VBG Lactate Sodium 128 L Potassium 4.3 Chloride 96 L Carbon Dioxide 18.1 L Anion Gap 13.9 H BUN 62 H Creatinine 4.8 H* Estimated GFR/1.73 m2 11.95 Glucose 105 Calcium 7.9 L Magnesium Total Bilirubin AST ALT Alkaline Phosphatase Total Protein Albumin Urine Color Yellow Urine Clarity Cloudy Urine pH 5.5 Ur Specific [place] 1.015 Urine Protein 30 H Urine Ketones Negative Urine Blood Moderate H Urine Nitrite Negative Urine Bilirubin Negative Urine Urobilinogen 0.2 Ur Leukocyte Esterase Moderate H Urine RBC 5-10 H Urine WBC >50 H Ur Epithelial Cells Rare Urine Crystals Negative Urine Bacteria Many Urine Casts Negative Urine Mucus Negative Ur Culture Indicated? Yes Urine Glucose Negative Last Vital Signs Temp 36.5 C 08/06/20 20:45 Pulse 63 08/06/20 20:45 Resp 15 08/06/20 20:45 BP 99/50 L 08/06/20 20:45 Pulse Ox 98 08/06/20 20:45 COVID-19 Screening Have you, or household traveled for leisure in last 14 days?: No Had IN PERSON contact w/suspected or confirmed C-19 person: No
[2020-08-06 22:25] LABS: Source Nasal/Nares
[2020-08-07] MEDS: cefTRIAXone 1,000 MG in Normal Saline 50 ML 100 MG IVPB (00:04)
[2020-08-07] MEDS: Normal Saline 500 ML 30 ML IV (00:05)
[2020-08-07] MEDS: Normal Saline Flush 10 ML SYR IVP ×2 (00:05→23:42)
[2020-08-07] MEDS: Lactated Ringers 1,000 ML 125 ML IV ×3 (01:05→17:24)
[2020-08-07 07:20] LABS: Anion Gap 12.7 mmol/L (3-11); BUN 58 mg/dL (7-18); CO2 19.3 mmol/L (21.0-32.0); Calcium 8.3 mg/dL (8.5-10.1); Chloride 99 mmol/L (98-107); Estimated GFR 15.19 (mL/min/1.73m2); Glucose 104 mg/dL (74-106); Sodium 131 mmol/L (136-145)
[2020-08-07 07:21] VITALS: BP 120/68; PULSE 70; RESP 18; TEMP 36.6; O2SAT 99
[2020-08-07 07:27] LABS: CREATININE 3.9 mg/dL (0.70-1.30)
[2020-08-07] MEDS: Apixaban 5 MG TAB PO ×2 (07:50→21:20)
[2020-08-07] MEDS: Pantoprazole 40 MG TABCR PO (07:50)
[2020-08-07] MEDS: Metoprolol CR 100 MG TABCR 200 MG PO (07:50)
[2020-08-07 08:22] LABS: Abs Immature Grans 0.17 10^3/uL (0.0-0.06); Absolute Basophil Count 0.05 10^3/uL (0.0-0.2); Absolute Eosinophil Count 0.61 10^3/uL (0.0-0.7); Absolute Lymphocyte Count 1.13 10^3/uL (1.2-3.4); Absolute Monocyte Count 0.94 10^3/uL (0.1-0.8); Basophils % 0.5; Eosinophils % 5.9; HCT 28.8 % (40.0-50.0); HGB 9.2 g/dL (13.5-17.5); Immature Grans % 1.7; MCH 29.8 pg (27.0-33.0); MCHC 31.9 % (32.0-36.0); MCV 93.2 fL (80-95); MPV 10.5 fL (8.0-11.0); Monocytes % 9.1; Neutrophils % 71.8; Nucleated RBC 0 %; Platelet Count 269 10^3/uL (130-400); RBC 3.09 10^6/uL (4.36-5.78); RDW 13.9 % (11.8-14.1); RDW-SD 47.1 fL
[2020-08-07 08:30] LABS: C-Reactive Protein 3.18 mg/dL (0.0-0.3); Creatine Kinase 14 U/L (39-308)
[2020-08-07 08:53] LABS: Procalcitonin 0.2 ng/mL
[2020-08-07 11:33] LABS: COVID-19 PCR Negative (Negative)
--- NOTE | 2020-08-07 14:49 | W.PM.PROGNOT ---
Date of Service Date of service: 08/07/20 Time of Service: 14:49 Assessment and Plan Assessment and plan (1) Acute kidney injury superimposed on chronic kidney disease: Status: Acute Assessment and plan: Most likely due to dehydration. We are also ruling out urinary retention. Continue IVF; monitor PVRs. The patient's baseline Cr is 2.7. If Cr is at baseline tomorrow, then we would discharge him with [place] [facility] [place]. Alternatively, we would pursue inpatient transfer, as per my discussion with Dr Styles. (2) UTI (urinary tract infection): Status: Acute Assessment and plan: Present on admission. Urine C&S pending. CT abdomen/pelvis without stones/obstructive uropathy, though it does show a 2.7 cm exophytic cyst, which will need outpatient follow up (stable). R/o urinary retention with PVRs. Continue empiric ceftriaxone. (3) Enterocutaneous fistula: Status: Acute Assessment and plan: Discussed with [facility] [place] - plan as above. (outpatient follow up in the clinic vs transfer tomorrow). (4) Anemia of chronic disease: Status: Acute Assessment and plan: Check anemia studies. Near baseline. (5) DVT prophylaxis: Status: Acute Assessment and plan: On therapeutic apixaban (6) Discharge planning issues: Status: Acute Assessment and plan: Full code D/c plan as above Subjective Subjective Interval history since last seen: Mr Coley states that he is feeling ok. He does not have abdominal pain, nausea, vomiting. There is liquid output in his ostomy. Denies dizziness, chest pain, shortness of breath. Reports urinary frequency (every 1 - 2 hrs) with low amounts of output each time; No difficulty initiating the stream. Bladder scan done with me in the room was negative. The patient denied dysuria. Case discussed with [facility] [place] - Dr Styles recommended trying to attach a little collection bag around the fistula site. She thinks that wet-to-dry dressings will be adequate for now. Because the patient is still in [facility], he is not appropriate for discharge to follow up in their clinic today, but we might be able to accomplish this tomorrow vs transfer the patient there for an evaluation. I have discussed this with the patient's as well. Exam Narrative Exam Narrative: General: Very pleasant elderly obese male, appears comfortable in bed HEENT: EOMI, MMM Heart: RRR, no m/r/g Lungs: CTAB Abdomen: soft, obese, midline incision dressed - c/d/i; granulation tissue on the bottom of the wound; small fistula wound near the end of the border with scant amount of feculent drainage Extremities: trace edema BLEs Objective Last Vital Signs Temp 36.6 C 08/07/20 07:21 Pulse 70 08/07/20 07:21 Resp 18 08/07/20 07:21 BP 120/68 08/07/20 07:21 Pulse Ox 99 08/07/20 07:21 Laboratory Results - last 24 hr 08/06/20 08/06/20 08/06/20 17:20 17:20 17:20 WBC 13.21 H RBC 3.44 L Hgb 10.3 L Hct 31.8 L MCV 92.4 MCH 29.9 MCHC 32.4 RDW 13.8 Plt Count 345 MPV 10.2 Immature Gran % 1.8 Neutrophils % 78.7 Lymphocytes % 9.2 Monocytes % 6.8 Eosinophils % 3.0 Basophils % 0.5 Nucleated RBC % 0 Absolute Neutrophils 10.40 H Absolute Lymphocytes 1.22 Absolute Monocytes 0.90 H Absolute Eosinophils 0.40 Absolute Basophils 0.07 VBG Lactate 1.5 H Sodium 124 L Potassium 4.7 Chloride 90 L Carbon Dioxide 19.7 L Anion Gap 14.3 H BUN 66 H Creatinine 4.5 H* Estimated GFR/1.73 m2 12.88 Glucose 130 H Calcium 9.0 Magnesium 2.3 Total Bilirubin 0.8 AST 42 H ALT 40 Alkaline Phosphatase 125 H Creatine Kinase C-Reactive Protein Total Protein 8.8 H Albumin 2.9 L Procalcitonin Urine Color Urine Clarity Urine pH Ur Specific [place] Urine Protein Urine Ketones Urine Blood Urine Nitrite Urine Bilirubin Urine Urobilinogen Ur Leukocyte Esterase Urine RBC Urine WBC Ur Epithelial Cells Urine Crystals Urine Bacteria Urine Casts Urine Mucus Ur Culture Indicated? Urine Glucose COVID-19 Source SARS-CoV-2 (PCR) 08/06/20 08/06/20 08/06/20 20:20 20:44 22:20 WBC RBC Hgb Hct MCV MCH MCHC RDW Plt Count MPV Immature Gran % Neutrophils % Lymphocytes % Monocytes % Eosinophils % Basophils % Nucleated RBC % Absolute Neutrophils Absolute Lymphocytes Absolute Monocytes Absolute Eosinophils Absolute Basophils VBG Lactate Sodium 128 L Potassium 4.3 Chloride 96 L Carbon Dioxide 18.1 L Anion Gap 13.9 H BUN 62 H Creatinine 4.8 H* Estimated GFR/1.73 m2 11.95 Glucose 105 Calcium 7.9 L Magnesium Total Bilirubin AST ALT Alkaline Phosphatase Creatine Kinase C-Reactive Protein Total Protein Albumin Procalcitonin Urine Color Yellow Urine Clarity Cloudy Urine pH 5.5 Ur Specific [place] 1.015 Urine Protein 30 H Urine Ketones Negative Urine Blood Moderate H Urine Nitrite Negative Urine Bilirubin Negative Urine Urobilinogen 0.2 Ur Leukocyte Esterase Moderate H Urine RBC 5-10 H Urine WBC >50 H Ur Epithelial Cells Rare Urine Crystals Negative Urine Bacteria Many Urine Casts Negative Urine Mucus Negative Ur Culture Indicated? Yes Urine Glucose Negative COVID-19 Source Nasal/nares SARS-CoV-2 (PCR) Negative 08/07/20 08/07/20 08/07/20 06:44 06:44 06:44 WBC 10.30 RBC 3.09 L Hgb 9.2 L Hct 28.8 L MCV 93.2 MCH 29.8 MCHC 31.9 L RDW 13.9 Plt Count 269 MPV 10.5 Immature Gran % 1.7 Neutrophils % 71.8 Lymphocytes % 11.0 Monocytes % 9.1 Eosinophils % 5.9 Basophils % 0.5 Nucleated RBC % 0 Absolute Neutrophils 7.40 H Absolute Lymphocytes 1.13 L Absolute Monocytes 0.94 H Absolute Eosinophils 0.61 Absolute Basophils 0.05 VBG Lactate Sodium 131 L Potassium 4.0 Chloride 99 Carbon Dioxide 19.3 L Anion Gap 12.7 H BUN 58 H Creatinine 3.9 H* Estimated GFR/1.73 m2 15.19 Glucose 104 Calcium 8.3 L Magnesium Total Bilirubin AST ALT Alkaline Phosphatase Creatine Kinase 14 L C-Reactive Protein 3.18 H Total Protein Albumin Procalcitonin 0.2 Urine Color Urine Clarity Urine pH Ur Specific [place] Urine Protein Urine Ketones Urine Blood Urine Nitrite Urine Bilirubin Urine Urobilinogen Ur Leukocyte Esterase Urine RBC Urine WBC Ur Epithelial Cells Urine Crystals Urine Bacteria Urine Casts Urine Mucus Ur Culture Indicated? Urine Glucose COVID-19 Source SARS-CoV-2 (PCR)
[2020-08-07 15:28] VITALS: BP 103/65; PULSE 64; RESP 18; TEMP 36.7; O2SAT 100
--- NOTE | 2020-08-07 16:55 | PDOC.CMIN ---
- If Service Date Differs Date of service: 08/07/20 Time of Service: 16:55 Care Management Initial Assess REASON FOR HOSPITALIZATION:: Weakness, Dehydration PAST MEDICAL HISTORY/PAST SURGICAL HISTORY:: Medical History. BMI 40.0-44.9, adult. Carpal tunnel syndrome. Patient denies having. 06/23/20-I didn't even know it was diagnosed, not denying that I have it, just nobody told me I did. Essential hypertension. History of smoking. Hx of hemorrhoids. Hyperlipidemia. Prediabetes. Rhinitis. Sleep disturbance. Tubular adenoma (~2012). Surgical History. H/O foot surgery. heel surgery Left. Hx of colectomy (~06/24/20). Hx of colonoscopy. Hx of hand surgery. LIF. Hx of tonsillectomy PREVIOUS FUNCTIONAL STATUS/SOCIAL/FAMILY SUPPORTS:: Boo lives in [facility] with his , Fariha. He is currently at [facility]) having short term rehab. They have one child who lives in [place], and they zoom with often. 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 He is independent at baseline. CURRENT FUNCTIONAL STATUS:: Carlito was sitting up in bed when CM met with him. He reported that he isn't sure of the plan yet. ASTRID was informed that his was upset and he wanted to have a virtual visit with her. When CM discussed this with Carlito, he wanted to wait until the plan was more clear. Later, the provider informed CM that he will remain at [facility], and depending on his progress, he will either discharge and go to an outpatient appointment at [facility], or he will transfer to [facility] acutely. CM will set up a facetime meeting between Carlito and his this evening. CM will continue to follow. ADVANCE DIRECTIVES:: Not on file. CM offered forms, Boo declined. Has patient been provided with info about the portal/API?: Yes Did the patient sign up for the portal?: No CODE STATUS:: Full Code INSURANCE COVERAGE / FINANCIAL ISSUES:: MCR/ BCBS CURRENT HOME/COMMUNITY SERVICES/EQUIPMENT:: Currently at [facility] for short term rehab. PRIMARY CARE PHYSICIAN:: Shital Patel POTENTIAL DISCHARGE NEEDS:: Coordinated discharge to [facility] vs [facility] PATIENT/FAMILY EDUCATION NEEDS:: Review discharge instructions regarding activity levels and medications, discussion of self care needs including ask me three. ANTICIPATED BARRIERS TO DISCHARGE:: None identified at this time. TRANSPORTATION:: to be determined by disposition. PLAN:: Boo will remain at [facility] overnight. If he improves enough to be medically cleared and discharged, he will transition to [facility] outpatient vs transfer inpatient if indicated. He will likely have a palliative care consult prior to discharge. He will transition back to [facility] once medically ready, prior to returning home. CM will continue to follow.
[2020-08-07] MEDS: Melatonin 3 MG TAB PO (21:20)
[2020-08-07 23:19] VITALS: BP 109/62; PULSE 60; RESP 18; TEMP 36.6; O2SAT 98
[2020-08-07] MEDS: cefTRIAXone 1 GM/50 ML BAG IVPB (23:42)
[2020-08-08] MEDS: Lactated Ringers 1,000 ML 125 ML IV ×2 (01:04→09:59)
[2020-08-08 07:11] LABS: Absolute Basophil Count 0.04 10^3/uL (0.0-0.2); Absolute Eosinophil Count 0.55 10^3/uL (0.0-0.7); Absolute Lymphocyte Count 1.04 10^3/uL (1.2-3.4); Absolute Monocyte Count 0.76 10^3/uL (0.1-0.8); Absolute Neutrophil Count 5.22 10^3/uL (1.2-6.7); Basophils % 0.5; Eosinophils % 7.1; HCT 26.7 % (40.0-50.0); HGB 8.6 g/dL (13.5-17.5); Immature Grans % 1.3; Lymphocytes % 13.5; MCH 30.2 pg (27.0-33.0); MCHC 32.2 % (32.0-36.0); MCV 93.7 fL (80-95); MPV 10.4 fL (8.0-11.0); Monocytes % 9.9; Neutrophils % 67.7; Nucleated RBC 0 %; Platelet Count 239 10^3/uL (130-400); RBC 2.85 10^6/uL (4.36-5.78); RDW 14.2 % (11.8-14.1); RDW-SD 48.5 fL; WBC 7.71 10^3/uL (4.4-10.8)
[2020-08-08 07:24] LABS: Anion Gap 10.7 mmol/L (3-11); BUN 44 mg/dL (7-18); CO2 20.3 mmol/L (21.0-32.0); Calcium 8.2 mg/dL (8.5-10.1); Chloride 103 mmol/L (98-107); Estimated GFR 20.56 (mL/min/1.73m2); Magnesium 2.1 mg/dL (1.8-2.4); Potassium 3.9 mmol/L (3.5-5.1); Sodium 134 mmol/L (136-145)
[2020-08-08 07:25] VITALS: BP 133/63; PULSE 60; RESP 17; TEMP 37; O2SAT 100
[2020-08-08 07:25] LABS: Diff Comment Diff Reviewed; RBC Morphology Normal
[2020-08-08 07:46] LABS: Iron 18 ug/dL (65-175); Total Iron Binding Capacity 174 ug/dL (250-450); Transferrin Sat 10 % (20-55)
[2020-08-08] MEDS: Pantoprazole 40 MG TABCR PO (08:12)
[2020-08-08] MEDS: Metoprolol CR 100 MG TABCR 200 MG PO (08:12)
[2020-08-08] MEDS: Apixaban 5 MG TAB PO (08:12)
[2020-08-08 08:13] LABS: Folate 8.6 ng/mL (8.6-20.0); Vitamin B12 433 pg/mL (193-986)
[2020-08-08 08:26] LABS: Glucose 107 mg/dL (74-106)
[2020-08-08 08:36] LABS: Ferritin 1582 ng/mL (26-388)
--- NOTE | 2020-08-08 10:55 | PCNE_ITS ---
Date of service: 08/08/20 Time of Service: 10:55 History of Present Illness Narrative: Carlito is a 75 year old male with PMHx of complicated hemicolectomy for a cancerous polyp with anastamotic leak in 06/26, requiring a prolonged stay at [facility] at that time, as well as h/o CKD III, Afib on eliquis, hypertension, who was admitted to [facility] hospitalist service on 08/06/20 for treatment of acute on chronic kidney injury due to dehydration and UTI (2 different GNR, speciation pending). He was also found to have a small enterocutaneous fistula near the left inferior border of his abdominal wound. He was treated with Rocephin and hydrated with IV fluids. His kidney function improved to near baseline today. A palliative care consult was requested to discuss goals of care and advance care planning. His , Gauri, is a patient of Dr. Valentin. Gauri wanted Carlito to be seen by palliative care as well. The plan is for Carlito to be discharged from [facility] today and transported to [facility] for outpatient follow-up then return to [facility]. We discussed his goals, he really wants to live as long as possible. He wants to get up and walk, he reports that he has not been ambulating for a week. He is concerned that [facility] does not havet have comfo rtable chairs for him to sit in and he is able to sit longer at [facility] because there is a comfortable chair. He is interested in more aggressive PT. His ultimate goal is to get back home. He is eating and drinking well. He likes hint flavored water, he is drinking at least 2 liters per day. He is hoping that his can bring these drinks to him at the rehab. He reports that his , Gauri, is his biggest support person. They have been for 22 years this year. His children are in [place]. He does not have local family besides his . We discussed CODE STATUS, he is clear that he is a full code. He would want medical providers to do anything and everything possible as he states he was a very healthy person prior to this hospitalization. He will benefit from continuing to be followed by palliative care and really understanding his disease process. As mentioned, his is a patient of Jennifer Valentin. He would like to be followed by Dr. Valentin as well. He is requesting that I contact his , Gauri and update her on his kidney function and his request for her to bring peter Farley to the rehab for him. I called his 's phone and did not reach her, the voicemail was also full. He is scheduled to be seen at [facility] and rehab by Dr. Valentin on 08/20/2020. I contacted care managers at the hospital to be sure that he is aware of this follow-up date. network operations project manager, Olivia, spoke with his . Assessment and Plan Assessment and plan (1) UTI (urinary tract infection): Status: Acute (2) Enterocutaneous fistula: Status: Acute (3) Acute kidney injury superimposed on chronic kidney disease: Status: Resolved (4) Hyperlipidemia: Status: Acute (5) Colon cancer: Status: Chronic (6) History of smoking: Status: Acute (7) BMI 40.0-44.9, adult: Status: Acute (8) Essential hypertension: Status: None (9) Palliative care patient: Status: Acute Assessment and plan: Carlito is a 75 year old male with PMHx of complicated hemicolectomy for a cancerous polyp with anastamotic leak in 06/26, requiring a prolonged stay at [facility] at that time, as well as h/o CKD III, Afib on eliquis, hypertension, who was admitted to [facility] hospitalist service on 08/06/20 for treatment of acute on chronic kidney injury due to dehydration and UTI (2 different GNR, speciation pending). He was also found to have a small enterocutaneous fistula near the left inferior border of his abdominal wound. Palliative care was consulted to establish care while in the hospital. Discussed goals, he wants to get up and walking, he has not ambulated in a week. He is hoping for more aggressive physical therapy at [facility] and rehab. His ultimate goal is to get back home. Discussed CODE STATUS. He is a full code. He states he would want anything and everything done to keep him alive. His goal is to continue living. He will benefit from continuing to be followed by palliative care to understand what is going on with his health. His is followed by Dr. Jennifer Valentin. He would like to be followed by Dr. Valentin as well as an outpatient. He appreciates that she is a strong advocate for his . He has a follow-up appointment scheduled with Dr. Valentin at [facility] and rehab on 08/20/2020. He asked that I contact his but I was unable to reach her by phone and her voicemail was full. Approximately 45 minutes was spent reviewing the chart, seeing the patient and and documentation. Review of Systems All systems reviewed & are unremarkable except as noted in HPI and below PFSH Medical History BMI 40.0-44.9, adult Carpal tunnel syndrome Patient denies having. 06/23/20-I didn't even know it was diagnosed, not denying that I have it, just nobody told me I did Essential hypertension History of smoking Hx of hemorrhoids Hyperlipidemia Prediabetes Rhinitis Sleep disturbance Tubular adenoma (~2012) Surgical History H/O foot surgery heel surgery Left Hx of colectomy (~06/24/20) Hx of colonoscopy Hx of hand surgery LIF Hx of tonsillectomy Family History Mother Heart disease Father No problems noted. Social History Smoking/Tobacco Use Status: Former Tobacco Use Smoking risk assessment performed?: Yes Alcohol Intake: current Alcohol Intake frequency: 3 or more drinks per day Alcohol type: hard liquor Drug use: Never Substance use type: does not use Current gender identity: male Do you feel safe at home: Yes Do you feel safe in your relationship?: Yes Exam Narrative Exam Narrative: General: 75-year-old man, laying back in his hospital bed, awake and alert, pleasant and talkative. Does not appear to be in acute distress. HEENT: Normocephalic, atraumatic, mucous membranes moist, poor dentition. Neck: Supple, no JVD. Cardiovascular: Heart sounds regular, nontachycardic. Respiratory: Respirations appear even and unlabored, lung sounds are clear bilaterally. GI: Large round abdomen with bulky dressing, clean, dry and intact. Ostomy drai sury dark brown liquid. Extremities: Moves all 4 extremities freely, no lower extremity edema. Results Last Vital Signs Temp 37.0 C 08/08/20 07:25 Pulse 60 08/08/20 07:25 Resp 17 08/08/20 07:25 BP 133/63 08/08/20 07:25 Pulse Ox 100 08/08/20 07:25 Labs Result diagrams: 08/08/20 06:12 08/08/20 06:12 Labs: Laboratory Results - last 24 hr 08/06/20 08/08/20 08/08/20 22:20 06:12 06:12 WBC 7.71 RBC 2.85 L Hgb 8.6 L Hct 26.7 L MCV 93.7 MCH 30.2 MCHC 32.2 RDW 14.2 H Plt Count 239 MPV 10.4 Immature Gran % 1.3 Neutrophils % 67.7 Lymphocytes % 13.5 Monocytes % 9.9 Eosinophils % 7.1 Basophils % 0.5 Nucleated RBC % 0 Absolute Neutrophils 5.22 Absolute Lymphocytes 1.04 L Absolute Monocytes 0.76 Absolute Eosinophils 0.55 Absolute Basophils 0.04 RBC Morphology Normal Sodium 134 L Potassium 3.9 Chloride 103 Carbon Dioxide 20.3 L Anion Gap 10.7 BUN 44 H D Creatinine 3.0 H D Estimated GFR/1.73 m2 20.56 Glucose 107 H Calcium 8.2 L Magnesium 2.1 Iron TIBC Transferrin % Sat Ferritin 1582 H Vitamin B12 Folate SARS-CoV-2 (PCR) Negative 08/08/20 08/08/20 06:12 06:12 WBC RBC Hgb Hct MCV MCH MCHC RDW Plt Count MPV Immature Gran % Neutrophils % Lymphocytes % Monocytes % Eosinophils % Basophils % Nucleated RBC % Absolute Neutrophils Absolute Lymphocytes Absolute Monocytes Absolute Eosinophils Absolute Basophils RBC Morphology Sodium Potassium Chloride Carbon Dioxide Anion Gap BUN Creatinine Estimated GFR/1.73 m2 Glucose Calcium Magnesium Iron 18 L TIBC 174 L Transferrin % Sat 10 L Ferritin Vitamin B12 433 Folate 8.6 SARS-CoV-2 (PCR)
--- NOTE | 2020-08-08 11:20 | DSE_ITS ---
Date of service: 08/08/20 Time of Service: 11:21 DS: Diagnosis Discharge Diagnosis (1) Acute kidney injury superimposed on chronic kidney disease: Status: Resolved (2) Dehydration: Status: Resolved (3) UTI (urinary tract infection): Status: Acute Asessment and Plan: present on admission, due to 2 different GNRs, sp eciation pending. 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 He was also found to have a small enterocutaneous fistula near the left inferior border of his abdominal wound. There was no evidence of intraabdominal infection/peritonitis/wound infection. He received IVF and empiric ceftriaxone with improvement. There was no evidence of nephrolithiasis or obstructive uropathy on CT, or urinary retention by bladder scans. Today, his Cr is 3.0, down from 4.8 on admission, with baseline being around 2.7-2.8. The patient is instructed to drink 2.5-3L of water a day, at least. He will need to have a follow up chemistry done on 08/11/[facility] where he is getting discharged today. His antibiotic is getting converted to cefpodoxime to complete a 10 day course. During this hospitalization, our team has been in close contact with [facility] surgical team in regards to development of the fistula. We feel it is appropriate to discharge the patient today with outpatient follow up in the surgical clinical at [facility] this afternoon to have this evaluated. The patient is medically stable for discharge and agrees with this plan of care. Care for patient as well as completion of his discharge summary on day of discharge took 1 hr. Home Meds and New Rx's Prescriptions: New cyanocobalamin (vitamin B-12) [Vitamin B-12] 500 mcg Tablet 1,000 mcg PO DAILY Qty: 0 RF: 0 cefpodoxime 200 mg tablet 200 mg PO HS Qty: 8 RF: 0 Continued metoprolol succinate 200 mg tablet extended release 24 hr 200 mg PO DAILY AM RF: 0 pantoprazole 40 mg tablet,delayed release (DR/EC) 40 mg PO DAILY RF: 0 Eliquis 5 mg tablet 5 mg PO BID RF: 0 melatonin 3 mg Capsule 3 mg PO HS RF: 0 Discharge Instructions Instructions: Cefpodoxime Proxetil (By mouth), Acute Kidney Injury (DC), Urinary Tract Infection in Men (DC) Additional Instructions: Finish your antibiotics as prescribed. Drink at least 2.5 - 3 L of water/per day. Blood work (CBC, BMP, magnesium) on 08/11/2020 - results to MD at [facility]. Return to the hospital with any fever, bleeding, chest pain, shortness of breath. Care Plan Goals: Follow up at [facility] surgical clinic today. Stand Alone Forms: Nursing Discharge Form Referrals: GENERAL SURG,[facility] [OTHER] - Activity:: Activity as Tolerated Equipment/Supplies:: No Equipment Needed Diet:: As Tolerated Discharge Orders Discharge Orders: Discharge Order (Routine); Ordered 08/08/20 Ordered By: Umm Bailey DS: Summary Time Spent with Patient providing and/or coordinating discharge services: Greater than 30 minutes Status at Discharge Functional status at discharge: bed bound Overall status at discharge: patient is back to baseline Mental Status: mental status grossly normal Speech and Movement: speech and movement normal Mood: congruent mood Affect: normal affect Exam Narrative Exam Narrative: General: Very pleasant elderly obese male, appears comfortable in bed HEENT: EOMI, MMM Heart: RRR, no m/r/g Lungs: CTAB Abdomen: soft, obese, midline incision dressed - c/d/i; granulation tissue on the bottom of the wound; small fistula wound at the inferior border of the wound with scant amount of feculent drainage Extremities: trace edema BLEs Psych Mental Status: mental status grossly normal Speech and Movement: speech and movement normal Mood: congruent mood Affect: normal affect DS: Data Vitals/I&O Vitals and I&O: Vital Signs Temperature 37.0 C 08/08/20 07:25 Temperature Source Tympanic 08/08/20 07:25 Pulse 60 08/08/20 07:25 Pulse Rhythm Regular 08/08/20 00:29 Pulse 66 08/06/20 22:45 Respiratory Rate 17 08/08/20 07:25 Respiratory Effort Non-Labored 08/08/20 00:29 Respiratory Depth Normal 08/08/20 00:29 Respiratory Pattern Normal 08/08/20 00:29 Blood Pressure 133/63 08/08/20 07:25 Blood Pressure Mean 66 08/06/20 22:45 Blood Pressure Position Supine 08/06/20 16:56 Pulse Oximetry 100 08/08/20 07:25 Oxygen Delivery Method Room Air 08/08/20 07:25 Oxygen Flow Rate 0 08/08/20 07:25 Pain Level 0 08/08/20 08:05 Comment 08/08/20 08:05 Intake & Output 08/07/20 08/07/20 08/08/20 11:59 23:59 11:59 Intake Total 1571.5 / 3345.25 1773.75 / 3345.25 2678.333 / 2678.333 Output Total 800 / 2250 1450 / 2250 1050 / 1050 Balance 771.5 / 1095.25 323.75 / 1095.25 1628.333 / 1628.333 Weight 84.5 kg Intake: IV 1091.5 / 2085.25 993.75 / 2084.25 1958.333 / 1958.333 Oral 480 / 1260 780 / 1260 720 / 720 Output: Urine 800 / 1850 1050 / 1850 1050 / 1050 Stool 400 / 400 Other: Urine Color Yellow Yellow Yellow Urine Appearance Clear Clear Clear Urine Odor Normal None Normal Comment Void x1 in the urinal. Stool Size Moderate Stool Characteristics Liquid Green Voiding Methods Urinal Urinal Urinal Data Completed and Pending Completed studies during hospitalization [Text1]: CT abdomen/pelvis 08/06/20: 1. Postsurgical changes in the anterior midline abdominal wall. No abscess. No subcutaneous air is seen at this time. 2. No evidence of bowel obstruction. Pending studies at discharge: Urine culture results - provider at [facility] to follow Labs on day of discharge: Labs from last 24 hours 08/08/20 08/08/20 08/08/20 06:12 06:12 06:12 WBC 7.71 RBC 2.85 L Hgb 8.6 L Hct 26.7 L MCV 93.7 MCH 30.2 MCHC 32.2 RDW 14.2 H Plt Count 239 MPV 10.4 Immature Gran % 1.3 Neutrophils % 67.7 Lymphocytes % 13.5 Monocytes % 9.9 Eosinophils % 7.1 Basophils % 0.5 Nucleated RBC % 0 Absolute Neutrophils 5.22 Absolute Lymphocytes 1.04 L Absolute Monocytes 0.76 Absolute Eosinophils 0.55 Absolute Basophils 0.04 RBC Morphology Normal Sodium Potassium Chloride Carbon Dioxide Anion Gap BUN Creatinine Estimated GFR/1.73 m2 Glucose Calcium Magnesium Iron 18 L TIBC 174 L Transferrin % Sat 10 L Ferritin Vitamin B12 433 Folate 8.6 SARS-CoV-2 (PCR) 08/08/20 08/06/20 06:12 22:20 WBC RBC Hgb Hct MCV MCH MCHC RDW Plt Count MPV Immature Gran % Neutrophils % Lymphocytes % Monocytes % Eosinophils % Basophils % Nucleated RBC % Absolute Neutrophils Absolute Lymphocytes Absolute Monocytes Absolute Eosinophils Absolute Basophils RBC Morphology Sodium 134 L Potassium 3.9 Chloride 103 Carbon Dioxide 20.3 L Anion Gap 10.7 BUN 44 H D Creatinine 3.0 H D Estimated GFR/1.73 m2 20.56 Glucose 107 H Calcium 8.2 L Magnesium 2.1 Iron TIBC Transferrin % Sat Ferritin 1582 H Vitamin B12 Folate SARS-CoV-2 (PCR) Negative Preliminary micro results at discharge 08/06/20 20:20 Urine Culture - Preliminary Urine - Reflex from Ua Gram Negative Micheal Gram Negative Micheal#2 08/06/20 19:10 Wound Culture - Preliminary Abdomen Gram Negative Martina,Mixed PFSH Medical History BMI 40.0-44.9, adult Carpal tunnel syndrome Patient denies having. 06/23/20-I didn't even know it was diagnosed, not denying that I have it, just nobody told me I did Essential hypertension History of smoking Hx of hemorrhoids Hyperlipidemia Prediabetes Rhinitis Sleep disturbance Tubular adenoma (~2012) Surgical History H/O foot surgery heel surgery Left Hx of colectomy (~06/24/20) Hx of colonoscopy Hx of hand surgery LIF Hx of tonsillectomy Family History Mother Heart disease Father No problems noted. Social History Smoking/Tobacco Use Status: Former Tobacco Use Smoking risk assessment performed?: Yes Alcohol Intake: current Alcohol Intake frequency: 3 or more drinks per day Alcohol type: hard liquor Drug use: Never Substance use type: does not use Current gender identity: male Do you feel safe at home: Yes Do you feel safe in your relationship?: Yes
--- NOTE | 2020-08-08 12:11 | W.NUTRFU ---
Date of service: 08/08/20 Time of Service: 12:11 Nutritional Follow up NOTE: 75 year old male admitted with FREDDIE with dehydration. PMH: renal cyst, s/p right hemicolectomy for unresectable polyp. Following Renal Diet with excellent intake (>75%). Not at nutritional risk at this time. Will continue to follow. Time Spent in Nutritional Counseling and Treatment: 0
--- NOTE | 2020-08-08 14:06 | NUR.NOTE ---
Nursing Note: At 1350 on 08/08/20, this RN returned a call from the pt.'s , Fariha. RN updated pt.'s regarding the pt.'s VS, pain level, lab values (specifically creatinine), head to toe assessment, status of ileostomy and abdominal wound/dressing, plan of care (including discharge to [facility] for an outpatient appointment and then transfer back to [facility]), etc. Pt.'s verbalized understanding and presented with a few questions that were answered. RN will reassess as necessary.
--- NOTE | 2020-08-08 15:14 | CMDISCH_ITS ---
- If Service Date Differs Date of service: 08/08/20 Time of Service: 15:14 LACE Index Scoring Tool - Questions: Length of Stay (in days): 3 Acuity (Admit via E.D.?): Yes Comorbidities: Any Tumor, Liver or Renal Disease E.D. Visits: 2 - Answers: Total Score: 13 Risk of Readmission: High Risk Care Management Discharge Reason for Hospitalization: Weakness, Dehydration Discharge Plan: Boo was discharged from [facility], and transported to [facility] outpatient surgical clinic via [facility], coordinated by CM. He was to be evaluated at the clinic, and may be admitted, if indicated. If he is stable for discharge, he will return to [facility], where he is currently placed for short term rehab. CM called his to provide an update. [facility] shared concerns regarding his return after he had left [facility]. [facility] staff contacted [facility], who reported that he will likely get admitted after being seen at the clinic. Boo was happy to be going to the appointment at [facility]. He will follow up with his PCP, Palliative Care, and discharge plan of care. Patient/Family Education Needs: Review discharge instructions, discussion of self care needs and goals of care. Services Needed at Discharge: Usp Facility ([facility]), Transportation ([facility])
--- NOTE | 2020-08-08 15:14 | PDOC.CMDIS ---
- If Service Date Differs Date of service: 08/08/20 Time of Service: 15:14 LACE Index Scoring Tool - Questions: Length of Stay (in days): 3 Acuity (Admit via E.D.?): Yes Comorbidities: Any Tumor, Liver or Renal Disease E.D. Visits: 2 - Answers: Total Score: 13 Risk of Readmission: High Risk Care Management Discharge Reason for Hospitalization: Weakness, Dehydration Discharge Plan: Boo was discharged from [facility], and transported to [facility] outpatient surgical clinic via [facility], coordinated by CM. He was to be evaluated at the clinic, and may be admitted, if indicated. If he is stable for discharge, he will return to [facility], where he is currently placed for short term rehab. CM called his to provide an update. [facility] shared concerns regarding his return after he had left [facility]. [facility] staff contacted [facility], who reported that he will likely get admitted after being seen at the clinic. Boo was happy to be going to the appointment at [facility]. He will follow up with his PCP, Palliative Care, and discharge plan of care. Patient/Family Education Needs: Review discharge instructions, discussion of self care needs and goals of care. Services Needed at Discharge: Fdc Facility ([facility]), Transportation ([facility])
== END 2020-08-08 13:46 | disposition skilled nursing facility (03) ==
LOC: ER 22:18 → MS 23:07
PROVIDERS: Internal Medicine; Admitting Provider General Practice; Emergency Provider Physician Assistant; PCP Nurse Practitioner Family; Visit Provider General Practice
DX: N17.9 Acute kidney failure, unspecified (principal); N39.0 Urinary tract infection, site not specified; K63.2 Fistula of intestine; E86.0 Dehydration; E53.8 Deficiency of other specified B group vitamins; I48.91 Unspecified atrial fibrillation; N18.30 Chronic kidney disease, stage 3 unspecified; Z93.3 Colostomy status; I12.9 Hypertensive chronic kidney disease with stage 1 through stage 4 chronic kidney disease, or unspecified chronic kidney disease; E78.5 Hyperlipidemia, unspecified; R73.03 Prediabetes; Z98.0 Intestinal bypass and anastomosis status; D63.8 Anemia in other chronic diseases classified elsewhere; Z20.822 Contact with and (suspected) exposure to COVID-19; Z79.01 Long term (current) use of anticoagulants
CPT/HCPCS: 36415; 80048; 80053; 82550; 84145; 87077; 96360; 96361; 99222; 99233; 99239; 99253; 99285; 74176; 81003; 81015; 82607; 82728; 82746; 83540; 83550; 83605; 83735; 85025; 86140; 87070; 87086; 87186; 87205; 99217; 99219; 99226; G0378; J0696

== ENCOUNTER 2020-11-06 09:56 | Outpatient (REF) | payer BC, MEDICARE, SELFPAY ==
[2020-11-06 16:02] LABS: HCT 33.2 % (40.0-50.0); HGB 10.6 g/dL (13.5-17.5); MCH 29.5 pg (27.0-33.0); MCHC 31.9 % (32.0-36.0); MCV 92.5 fL (80-95); MPV 11.6 fL (8.0-11.0); Platelet Count 265 10^3/uL (130-400); RBC 3.59 10^6/uL (4.36-5.78); RDW 13.1 % (11.8-14.1); RDW-SD 45.1 fL; WBC 9.06 10^3/uL (4.4-10.8)
[2020-11-06 16:18] LABS: ALT 86 U/L (16-63); AST 76 U/L (15-37); Albumin 3.6 g/dL (3.4-5.0); Alkaline Phosphatase 85 U/L (46-116); Bilirubin, Total 0.7 mg/dL (0.2-1.0); Calcium 8.8 mg/dL (8.5-10.1); Chloride 102 mmol/L (98-107); Estimated GFR 15.19 (mL/min/1.73m2); Glucose 140 mg/dL (74-106); Potassium 4.9 mmol/L (3.5-5.1); Sodium 138 mmol/L (136-145); Total Protein 7.5 g/dL (6.4-8.2)
[2020-11-06 16:44] LABS: BUN 84 mg/dL (7-18); CREATININE 3.9 mg/dL (0.70-1.30)
[2020-11-06 17:11] LABS: Hemoglobin A1C 5.6 % (<5.7)
== END 2020-11-06 09:57 | disposition home or self-care (01) ==
LOC: NCHCN 09:56
PROVIDERS: PCP Nurse Practitioner Family; Visit Provider Nurse Practitioner Family
DX: R73.03 Prediabetes (principal); R63.4 Abnormal weight loss
CPT/HCPCS: 80053; 85027; 83036

== ENCOUNTER 2020-11-06 17:17 | Inpatient (IN) | payer BC, MEDICARE, SELFPAY ==
[2020-11-06] VITALS (27 sets, daily range): BP systolic 95–133; BP diastolic 45–85; PULSE 64–75; RESP 12–24; TEMP 36.5–37.2; O2SAT 96–100
[2020-11-06 17:57] LABS: Abs Immature Grans 0.04 10^3/uL (0.0-0.06); Absolute Basophil Count 0.07 10^3/uL (0.0-0.2); Absolute Eosinophil Count 0.89 10^3/uL (0.0-0.7); Absolute Monocyte Count 1.26 10^3/uL (0.1-0.8); Absolute Neutrophil Count 6.52 10^3/uL (1.2-6.7); Basophils % 0.7; Eosinophils % 8.5; HCT 33.5 % (40.0-50.0); HGB 10.7 g/dL (13.5-17.5); Immature Grans % 0.4; Lymphocytes % 16.2; MCH 29.2 pg (27.0-33.0); MCHC 31.9 % (32.0-36.0); MCV 91.3 fL (80-95); Neutrophils % 62.2; Nucleated RBC 0 %; Platelet Count 249 10^3/uL (130-400); RBC 3.67 10^6/uL (4.36-5.78); RDW 13.2 % (11.8-14.1); RDW-SD 44.1 fL; WBC 10.48 10^3/uL (4.4-10.8)
[2020-11-06 18:10] LABS: ALT 82 U/L (16-63); AST 71 U/L (15-37); Albumin 3.5 g/dL (3.4-5.0); Alkaline Phosphatase 99 U/L (46-116); Anion Gap 11.6 mmol/L (3-11); Bilirubin, Total 0.6 mg/dL (0.2-1.0); CO2 24.4 mmol/L (21.0-32.0); Calcium 8.8 mg/dL (8.5-10.1); Chloride 101 mmol/L (98-107); Estimated GFR 14.34 (mL/min/1.73m2); Glucose 117 mg/dL (74-106); Lipase 373 U/L (73-393); Potassium 4.4 mmol/L (3.5-5.1); Sodium 137 mmol/L (136-145); Total Protein 8.1 g/dL (6.4-8.2)
[2020-11-06 18:14] LABS: BUN 89 mg/dL (7-18); CREATININE 4.1 mg/dL (0.70-1.30)
[2020-11-06] MEDS: Normal Saline 1,000 ML 1000 ML IV (18:20)
[2020-11-06 18:26] LABS: Bilirubin Negative (Negative); Blood Trace-intact (Negative); Clarity Clear (Clear); Glucose Negative (Negative); Ketones Negative (Negative); Leukocyte Esterase Small (Negative); Nitrite Negative (Negative); Urobilinogen 0.2 EU/dL (Up TO 0.2); pH 5.5 (5-8)
[2020-11-06 18:36] LABS: Bacteria Moderate HPF (Negative); Epithelial Cells Rare HPF (Negative); RBC 0-2 HPF (0-2)
[2020-11-06 18:37] LABS: C & S Indicated? Yes; Casts Negative LPF (Negative); Crystals Negative HPF (Negative); Mucus Negative (Negative)
[2020-11-06 19:11] LABS: Creatinine,Urine 171.15 mg/dL
--- NOTE | 2020-11-06 19:11 | ED.GENADUL_ITS ---
Discharge Plan Disposition Patient Disposition: [facility] INPATIENT Condition: Stable Discharge Details Clinical Impression: FREDDIE (acute kidney injury), Acute UTI Admit Date/Time: 11/06/20 19:18 Admit Provider: Gabriel Lazaro Attending Provider: Gabriel Lazaro Primary Care Provider: Shital Patel ED Provider: Reed Workman Discharge Data Discharge Date/Time-TO BE ENTERED AT DEPARTURE: 11/06/20 20:15 Medical Decision Making 75-year-old gentleman who presents because he had routine outpatient labs today that revealed acute on chronic renal injury. He is currently asymptomatic. Abdomen is soft, nontender, ileostomy appears to be functioning well, the surgical wound also appears to be healing appropriately. He reports that he is making urine without difficulty but does have potentially slightly increased urination. He appears hemodynamically stable. I will obtain IV access, give IV fluids, and recheck a CBC and CMP to be sure the results earlier today were correct as well as obtain a urinalysis given his urinary frequency. Patient and are comfortable with this plan. Laboratory values do intact reveal a BUN of 89, creatinine of 4.1, estimated GFR 14.34. It appears as though his most recent hospitalization his creatinine got down to 3.0. reports that since he was discharged from [facility] she believes that the lowest his creatinine is gone is 2.6 or 7 but she is not completely sure. Urinalysis reveals trace blood, small leuk esterase, 10-20 white cells with moderate bacteria. Given he has urinary frequency I will initiate antibiotic therapy. When reviewing his most recent urine culture sensitivity from 3-3, I will initiate Keflex therapy. Given his acute on chronic FREDDIE as well as his UTI, I will discuss the case with our hospitalist team for admission. Case discussed with Dr. Lazaro, who is agreeable to admission, I will write holding orders. Medical Records Medical records reviewed: Yes I reviewed the patient's medical records. Lab Data Lab results reviewed: Yes I reviewed the patient's lab results. Labs: 11/06/20 18:23 Urine - Reflex from Ua Urine Culture - Pending Laboratory Tests Range/Units 11/06/20 11/06/20 11/06/20 17:35 17:35 18:23 WBC (4.4-10.8) 10^3/uL 10.48 RBC (4.36-5.78) 10^6/uL 3.67 L Hgb (13.5-17.5) g/dL 10.7 L Hct (40.0-50.0) % 33.5 L MCV (80-95) fL 91.3 MCH (27.0-33.0) pg 29.2 MCHC (32.0-36.0) % 31.9 L RDW (11.8-14.1) % 13.2 Plt Count (130-400) 10^3/uL 249 MPV (8.0-11.0) fL 11.0 Immature Gran % 0.4 Neutrophils % 62.2 Lymphocytes % 16.2 Monocytes % 12.0 Eosinophils % 8.5 Basophils % 0.7 Nucleated RBC % % 0 Absolute Neutrophils (1.2-6.7) 10^3/uL 6.52 Absolute Lymphocytes (1.2-3.4) 10^3/uL 1.70 Absolute Monocytes (0.1-0.8) 10^3/uL 1.26 H Absolute Eosinophils (0.0-0.7) 10^3/uL 0.89 H Absolute Basophils (0.0-0.2) 10^3/uL 0.07 Sodium (136-145) mmol/L 137 Potassium (3.5-5.1) mmol/L 4.4 Chloride (98-107) mmol/L 101 Carbon Dioxide (21.0-32.0) mmol/L 24.4 Anion Gap (3-11) mmol/L 11.6 H BUN (7-18) mg/dL 89 H* Creatinine (0.70-1.30) mg/dL 4.1 H* Estimated GFR/1.73 m2 (mL/min/1.73m2) 14.34 Glucose (74-106) mg/dL 117 H Calcium (8.5-10.1) mg/dL 8.8 Total Bilirubin (0.2-1.0) mg/dL 0.6 AST (15-37) U/L 71 H ALT (16-63) U/L 82 H Alkaline Phosphatase (46-116) U/L 99 Total Protein (6.4-8.2) g/dL 8.1 Albumin (3.4-5.0) g/dL 3.5 Lipase (73-393) U/L 373 Urine Color (Yellow) Yellow Urine Clarity (Clear) Clear Urine pH (5-8) 5.5 Ur Specific [place] (1.005-1.025) 1.020 Urine Protein (Negative) mg/dL Negative Urine Ketones (Negative) mg/dL Negative Urine Blood (Negative) Trace-intact H Urine Nitrite (Negative) Negative Urine Bilirubin (Negative) Negative Urine Urobilinogen (Up TO 0.2) EU/dL 0.2 Ur Leukocyte Esterase (Negative) Small H Urine RBC (0-2) HPF 0-2 Urine WBC (0-5) HPF 10-20 H Ur Epithelial Cells (Negative) HPF Rare Urine Crystals (Negative) HPF Negative Urine Bacteria (Negative) HPF Moderate Urine Casts (Negative) LPF Negative Urine Mucus (Negative) Negative Ur Culture Indicated? Yes Ur Random Creatinine mg/dL Ur Random Sodium mmol/L Urine Glucose (Negative) mg/dL Negative Range/Units 11/06/20 18:23 WBC (4.4-10.8) 10^3/uL RBC (4.36-5.78) 10^6/uL Hgb (13.5-17.5) g/dL Hct (40.0-50.0) % MCV (80-95) fL MCH (27.0-33.0) pg MCHC (32.0-36.0) % RDW (11.8-14.1) % Plt Count (130-400) 10^3/uL MPV (8.0-11.0) fL Immature Gran % Neutrophils % Lymphocytes % Monocytes % Eosinophils % Basophils % Nucleated RBC % % Absolute Neutrophils (1.2-6.7) 10^3/uL Absolute Lymphocytes (1.2-3.4) 10^3/uL Absolute Monocytes (0.1-0.8) 10^3/uL Absolute Eosinophils (0.0-0.7) 10^3/uL Absolute Basophils (0.0-0.2) 10^3/uL Sodium (136-145) mmol/L Potassium (3.5-5.1) mmol/L Chloride (98-107) mmol/L Carbon Dioxide (21.0-32.0) mmol/L Anion Gap (3-11) mmol/L BUN (7-18) mg/dL Creatinine (0.70-1.30) mg/dL Estimated GFR/1.73 m2 (mL/min/1.73m2) Glucose (74-106) mg/dL Calcium (8.5-10.1) mg/dL Total Bilirubin (0.2-1.0) mg/dL AST (15-37) U/L ALT (16-63) U/L Alkaline Phosphatase (46-116) U/L Total Protein (6.4-8.2) g/dL Albumin (3.4-5.0) g/dL Lipase (73-393) U/L Urine Color (Yellow) Urine Clarity (Clear) Urine pH (5-8) Ur Specific [place] (1.005-1.025) Urine Protein (Negative) mg/dL Urine Ketones (Negative) mg/dL Urine Blood (Negative) Urine Nitrite (Negative) Urine Bilirubin (Negative) Urine Urobilinogen (Up TO 0.2) EU/dL Ur Leukocyte Esterase (Negative) Urine RBC (0-2) HPF Urine WBC (0-5) HPF Ur Epithelial Cells (Negative) HPF Urine Crystals (Negative) HPF Urine Bacteria (Negative) HPF Urine Casts (Negative) LPF Urine Mucus (Negative) Ur Culture Indicated? Ur Random Creatinine mg/dL 171.15 Ur Random Sodium mmol/L < 5 Urine Glucose (Negative) mg/dL HPI General Mode of arrival: ambulatory . Date/Time Provider Initiated Documentation: 11/06/20 17:24 . Limitations to Documentation: no limitations . Information obtained by: patient and family . HPI Narrative: This is a 75-year-old gentleman, past medical history that includes hypertension, hyperlipidemia, palliative care patient, currently on Eliquis. More recently, he had initial surgery here at our facility on 06-26 which ended up being a complicated hemicolectomy for a cancerous polyp with anastomotic leak which secondarily led to surgery at [facility] and a prolonged hospitalization. Patient was admitted to our facility on 08-06-20 for acute on chronic kidney injury, dehydration, UTI. 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 He states that he saw his primary care provider today for routine outpatient follow-up, had blood work obtained and was subsequently discharged home. He was feeling well, has no acute concerns or complaints. He was called and told that he was in renal failure and told to come directly to the ER. Patient denies recent illness or trauma, denies headache, chest pain, shortness of breath, cough, back pain, any abdominal discomfort other than his baseline status post surgery. He reports normal output from his ileostomy. He reports normal urinary output. Denies dysuria or hematuria. Reports his urine seems to be a normal clear-yellow color. Again, currently has no acute concerns or complaints. Related Data Home Medications Medication Instructions Recorded Confirmed Eliquis 5 mg PO BID 08/06/20 11/06/20 melatonin 3 mg PO HS 08/06/20 11/06/20 metoprolol succinate 200 mg PO DAILY AM 08/06/20 11/06/20 loperamide 2 mg tablet 2 mg PO Q6H #1 tab 10/31/20 11/06/20 folic acid 1 mg PO DAILY 11/06/20 11/06/20 Previous Rx's Medication Instructions Recorded loperamide 2 mg tablet 2 mg PO Q6H #1 tab 10/31/20 Allergies Allergy/AdvReac Type Severity Reaction Status Date / Time Sulfa (Sulfonamide Allergy Mild tight Unverified 11/06/20 17:27 Antibiotics) feeling in scrotum hydrochlorothiazide AdvReac Mild Verified 11/06/20 17:27 lisinopril AdvReac Mild cough Verified 11/06/20 17:27 General Stated Complaint: GenMedical PAMELA: 2 Review of Systems Constitutional Constitutional: Denies fatigue, Denies fever(s) and Denies headache(s) ENT Ears, Nose, Mouth, and Throat: Denies headache(s) and Denies neck pain Cardiovascular Cardiovascular: Denies chest pain and Denies dyspnea Respiratory Respiratory: Denies cough and Denies dyspnea Gastrointestinal Gastrointestinal: Reports abdominal pain, Denies melena, Denies hematochezia, Denies nausea and Denies vomiting Genitourinary Genitourinary: Denies dysuria and Reports urinary frequency Musculoskeletal Musculoskeletal: Denies back pain and Denies neck pain Integumentary/Breasts Skin/Breast: Denies rash Neurologic Neurologic: Denies headache(s) Endocrine Endocrine: Denies fatigue Hematologic/Lymphatic Hematologic/Lymphatic: Denies easy bleeding and Denies easy bruising [facility] Medical History BMI 40.0-44.9, adult Carpal tunnel syndrome Patient denies having. 06/23/20-I didn't even know it was diagnosed, not denying that I have it, just nobody told me I did Essential hypertension History of smoking Hx of hemorrhoids Hyperlipidemia Palliative care patient Prediabetes Rhinitis Sleep disturbance Tubular adenoma (~2012) Weakness Weight loss Surgical History H/O foot surgery heel surgery Left History of creation of ostomy History of hemicolectomy Hx of colectomy (~06/24/20) Hx of colonoscopy Hx of hand surgery LIF Hx of tonsillectomy Family History Mother Heart disease Father No problems noted. Social History Smoking/Tobacco Use Status: Former Tobacco Use Smoking risk assessment performed?: Yes Alcohol Intake: current Alcohol Intake frequency: a few times a week Alcohol type: beer and hard liquor Drug use: Never Substance use type: does not use Current gender identity: male Do you feel safe at home: Yes Do you feel safe in your relationship?: Yes Exam Const General: cooperative, healthy appearing, comfortable and no acute distress Orientation: alert, awake and oriented x3 HENMT Head: normal to inspection, normocephalic and atraumatic Face and sinus: normal facial exam Mouth: moist mucous membranes Eyes General: appearance normal, both eyes and all related structures Conjunctivae: conjunctivae normal Neck Neck: normal visual inspection, trachea midline and supple Resp Effort & Inspection: normal respiratory effort and able to speak in complete sentences Auscultation: clear to auscultation bilaterally Cardio Rate: regular rate Rhythm: regular rhythm GI Inspection: obesity Palpation: soft and nontender Auscultation: normal bowel sounds Other: Patient with a ileostomy, stoma looks normal, there is brown loose stool within the bag. He has a wound along the central abdomen that is dressed, I undressed the wound. Nontender. What appears to be normal surgical wound dehiscence. No signs of cellulitis, warmth, abscess, etc. Back/Spine/Pelvis Back: No back tenderness Skin General skin exam: no rashes or lesions noted Neuro General: patient alert, patient awake, moves all extremities and no focal motor deficits Cognition: normal cognition Speech: speech normal Gait: normal gait Sensory Exam: no sensory deficits noted Extrem General: normal to inspection, full ROM and capillary refill normal Psych Appearance: grossly normal Mental Status: mental status grossly normal Course Vital Signs Vital signs: Vital Signs Temperature 36.7 C 11/06/20 17:23 Pulse 71 11/06/20 17:23 Respiratory Rate 18 11/06/20 17:23 Blood Pressure 128/77 11/06/20 17:23 Pulse Oximetry 97 11/06/20 17:23 Temperature 36.7 C 11/06/20 17:23 Temperature Source Temporal Artery Scan 11/06/20 17:23 Pulse 71 11/06/20 18:26 Pulse 71 11/06/20 18:31 Respiratory Rate 13 11/06/20 18:31 Respiratory Effort 11/06/20 17:38 Respiratory Depth Normal 11/06/20 17:38 Respiratory Pattern Normal 11/06/20 17:38 Blood Pressure 108/61 11/06/20 18:26 Blood Pressure Mean 70 11/06/20 18:26 Blood Pressure Position Supine 11/06/20 17:23 Pulse Oximetry 97 11/06/20 18:31 Oxygen Delivery Method Room Air 11/06/20 17:23 Oxygen Flow Rate 0 11/06/20 17:23 Pain Level 0 11/06/20 17:23 Lab/Test Results Lab/Test Results: 11/06/20 18:23 Urine - Reflex from Ua Urine Culture - Pending Laboratory Tests Range/Units 11/06/20 11/06/20 11/06/20 17:35 17:35 18:23 WBC (4.4-10.8) 10^3/uL 10.48 RBC (4.36-5.78) 10^6/uL 3.67 L Hgb (13.5-17.5) g/dL 10.7 L Hct (40.0-50.0) % 33.5 L MCV (80-95) fL 91.3 MCH (27.0-33.0) pg 29.2 MCHC (32.0-36.0) % 31.9 L RDW (11.8-14.1) % 13.2 Plt Count (130-400) 10^3/uL 249 MPV (8.0-11.0) fL 11.0 Immature Gran % 0.4 Neutrophils % 62.2 Lymphocytes % 16.2 Monocytes % 12.0 Eosinophils % 8.5 Basophils % 0.7 Nucleated RBC % % 0 Absolute Neutrophils (1.2-6.7) 10^3/uL 6.52 Absolute Lymphocytes (1.2-3.4) 10^3/uL 1.70 Absolute Monocytes (0.1-0.8) 10^3/uL 1.26 H Absolute Eosinophils (0.0-0.7) 10^3/uL 0.89 H Absolute Basophils (0.0-0.2) 10^3/uL 0.07 Sodium (136-145) mmol/L 137 Potassium (3.5-5.1) mmol/L 4.4 Chloride (98-107) mmol/L 101 Carbon Dioxide (21.0-32.0) mmol/L 24.4 Anion Gap (3-11) mmol/L 11.6 H BUN (7-18) mg/dL 89 H* Creatinine (0.70-1.30) mg/dL 4.1 H* Estimated GFR/1.73 m2 (mL/min/1.73m2) 14.34 Glucose (74-106) mg/dL 117 H Calcium (8.5-10.1) mg/dL 8.8 Total Bilirubin (0.2-1.0) mg/dL 0.6 AST (15-37) U/L 71 H ALT (16-63) U/L 82 H Alkaline Phosphatase (46-116) U/L 99 Total Protein (6.4-8.2) g/dL 8.1 Albumin (3.4-5.0) g/dL 3.5 Lipase (73-393) U/L 373 Urine Color (Yellow) Yellow Urine Clarity (Clear) Clear Urine pH (5-8) 5.5 Ur Specific [place] (1.005-1.025) 1.020 Urine Protein (Negative) mg/dL Negative Urine Ketones (Negative) mg/dL Negative Urine Blood (Negative) Trace-intact H Urine Nitrite (Negative) Negative Urine Bilirubin (Negative) Negative Urine Urobilinogen (Up TO 0.2) EU/dL 0.2 Ur Leukocyte Esterase (Negative) Small H Urine RBC (0-2) HPF 0-2 Urine WBC (0-5) HPF 10-20 H Ur Epithelial Cells (Negative) HPF Rare Urine Crystals (Negative) HPF Negative Urine Bacteria (Negative) HPF Moderate Urine Casts (Negative) LPF Negative Urine Mucus (Negative) Negative Ur Culture Indicated? Yes Urine Glucose (Negative) mg/dL Negative
[2020-11-06] MEDS: Cephalexin 500 MG CAP PO (19:16)
--- NOTE | 2020-11-06 19:31 | NUR.NOTE ---
provided with meal tray Nursing Note:
[2020-11-06 20:04] LABS: Sodium, Urine < 5 mmol/L
[2020-11-06 20:26] LABS: Source Nasal/Nares
[2020-11-06] MEDS: Loperamide 2 MG CAP PO (21:37)
[2020-11-06] MEDS: Melatonin 3 MG TAB PO (21:37)
[2020-11-06] MEDS: Apixaban 5 MG TAB PO (21:37)
[2020-11-06 23:18] LABS: COVID-19 PCR Negative (Negative)
--- NOTE | 2020-11-06 23:25 | HPE_ITS ---
Date of service: 11/06/20 Time of Service: 21:25 Assessment and Plan Assessment and plan (1) FREDDIE (acute kidney injury): Status: Acute Assessment and plan: Unclear timing of worsening renal function. Because Cr has doubled since last documented level this is possible FREDDIE, though progression of chronic renal disease also possible. He does not appear dehyrated currently, though he is at risk for excess fluid loss with stoma. He got some IV fluids in ED. No signs of obstruction, get u/s of bladder and kidneys to confirm. Getting urine lytes for FENA (urea is send out so less useful). Follow renal function. (2) Acute UTI: Status: Acute Assessment and plan: I am not convinced he has UTI as he doesn't have signficant UTI symptoms. Will not continue antibiotic (3) Anemia of chronic disease: Status: Chronic Assessment and plan: in august low iron, high ferritin. Also nl B12. h/h currently near recent baseline. (4) Open abdominal wall wound: Status: Acute Assessment and plan: improving per report, continue wound care (5) Paroxysmal A-fib: Status: Acute Assessment and plan: on metoprolol and apixaban, exam c/w NSR today (6) Elevated transaminase level: Status: Acute Assessment and plan: AST/ALT have been elevated since surgeries. Getting abdominal u/s. Should have hep screen but can do as outpatient. iron studies not c/w HH. At risk for RAMIREZ. Follow. (7) DVT prophylaxis: Status: Acute Assessment and plan: on eliquis for episode of pAfib. (8) Discharge planning issues: Status: Acute Assessment and plan: stable on medical floor. Once Cr improves or is clearly stable, discharge for renal follow up. History of Present Illness History of Present Illness Chief Complaint: renal failure on labs Narrative: 75 yo M s/p hemicolectomy in June 24, 2020 for localized colon cancer, readmitted 06/30/20 for enastamotic leak and subsequent prolonged ICU stay with complicated infection and possible fistula, history of admission 08/06/20 for acute renal failure felt at that time to be secondary to pre-renal azotemia from dehydration. High creatinine at that point was 4.8, decreased to 3.0 at d ischarge 08/08/20. [place] [facility] [place], his last BMP was 08/15/20 and showed Cr 1.98. He has been feeling well. He still gets tired with exertion, but fatigue had been improving. Has had normal urine output and flow and staying hydrated. He did endorse some increase urination to ED clinician but not to me. No recent change in ostomy output, takes loperiamide BID to limit ouput volume. He had routine labs with PCP today and sent to ED with BUN 89 and Cr 4.1. Review of Systems Constitutional Constitutional: Denies anorexia, Denies chills, Denies fever(s), Denies lethargy, Denies poor appetite and Denies weakness Eyes Eyes: Denies change in vision and Denies irritation ENT Ears, Nose, Mouth, and Throat: Denies dizziness, Denies mouth lesions, Denies nasal congestion, Denies nasal discharge and Denies sore throat Cardiovascular Cardiovascular: Denies chest pain, Denies syncope, Denies palpitations and Denies orthopnea Respiratory Respiratory: Denies cough, Denies excessive phlegm production and Denies wheezing Gastrointestinal Gastrointestinal: Denies abdominal pain, Denies melena, Denies hematochezia, Denies heartburn and Denies vomiting Genitourinary Genitourinary: Denies hematuria, Denies dysuria, Denies urinary hesitancy and Denies urinary incontinence Musculoskeletal Musculoskeletal: Denies arthralgias Integumentary/Breasts Skin/Breast: Denies rash and Denies skin ulcer Neurologic Neurologic: Denies confusion, Denies dizziness, Denies syncope, Denies sensory deficit and Denies weakness Psychiatric Psychiatric: Denies confusion and Denies depression Endocrine Endocrine: Denies palpitations Hematologic/Lymphatic Hematologic/Lymphatic: Denies easy bleeding Allergic/Immunologic Allergic/Immunologic: Denies wheezing [facility] Medical History (Updated 11/06/20 @ 23:49 by Gabriel Lazaro) BMI 40.0-44.9, adult Carpal tunnel syndrome Patient denies having. 06/23/20-I didn't even know it was diagnosed, not denying that I have it, just nobody told me I did Elevated transaminase level Essential hypertension History of smoking Hx of hemorrhoids Hyperlipidemia Palliative care patient Paroxysmal A-fib Prediabetes Rhinitis Sleep disturbance Tubular adenoma (~2012) Weakness Weight loss Surgical History H/O foot surgery heel surgery Left History of creation of ostomy History of hemicolectomy Hx of colectomy (~06/24/20) Hx of colonoscopy Hx of hand surgery LIF Hx of tonsillectomy Family History Mother Heart disease Alcohol abuse Social History (Updated 11/06/20 @ 23:36 by Gabriel Lazaro) Smoking/Tobacco Use Status: Former Tobacco Use Smoking risk assessment performed?: Yes Alcohol Intake: current Alcohol Intake frequency: a few times a week Alcohol type: beer and hard liquor Drug use: Never Substance use type: does not use Current gender identity: male Do you feel safe at home: Yes Do you feel safe in your relationship?: Yes Additional Social history: 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 Grew up in [facility]. Lives with Fariha in [facility]. Meds Allergies and Home Medications Allergies Allergy/AdvReac Type Severity Reaction Status Date / Time Sulfa (Sulfonamide Allergy Mild tight Unverified 11/06/20 17:27 Antibiotics) feeling in scrotum hydrochlorothiazide AdvReac Mild Verified 11/06/20 17:27 lisinopril AdvReac Mild cough Verified 11/06/20 17:27 Home Medications Medication Instructions Recorded Confirmed Type Eliquis 5 mg PO BID 08/06/20 11/06/20 History melatonin 3 mg PO HS 08/06/20 11/06/20 History metoprolol succinate 200 mg PO DAILY AM 08/06/20 11/06/20 History loperamide 2 mg tablet 2 mg PO Q6H #1 tab 10/31/20 11/06/20 Rx folic acid 1 mg PO DAILY 11/06/20 11/06/20 History Exam Narrative Exam Narrative: GEN: Alert and oriented, pleasent and cooperative, gives linear history. No acute distress at rest. HEENT: Head atraumatic. Conjunctiva clear, no icterus. PEERL, EOMI. no rhinorrhea. MMM, OP benign. Neck is supple with no masses or lymphadenopathy, trachea midline LUNGS: CTAB with normal effort CV: RRR with no murmurs, gallops, or rubs. ABD: +BS, soft, NT/ND, stoma appears healthy, pink EXT: no cyanosis, clubbing, or edema MSK: No joint redness or swelling. No CVA tenderness NEURO: CN 2-12 grossly intact. Normal movement of 4 extremities. Normal speech and coordination SKIN: No rashes other than 12.5cm long and 3-5cm wide wound in midline abdomen. Some areas epithelialized and some areas of open graulation that is draining some whitish discharge superiorly. PSYCH: normal mood and affect Results Labs Result diagrams: 11/06/20 17:35 11/06/20 17:35 Labs: Laboratory Results - last 24 hr 11/06/20 11/06/20 11/06/20 17:35 17:35 18:23 WBC 10.48 RBC 3.67 L Hgb 10.7 L Hct 33.5 L MCV 91.3 MCH 29.2 MCHC 31.9 L RDW 13.2 Plt Count 249 MPV 11.0 Immature Gran % 0.4 Neutrophils % 62.2 Lymphocytes % 16.2 Monocytes % 12.0 Eosinophils % 8.5 Basophils % 0.7 Nucleated RBC % 0 Absolute Neutrophils 6.52 Absolute Lymphocytes 1.70 Absolute Monocytes 1.26 H Absolute Eosinophils 0.89 H Absolute Basophils 0.07 Sodium 137 Potassium 4.4 Chloride 101 Carbon Dioxide 24.4 Anion Gap 11.6 H BUN 89 H* Creatinine 4.1 H* Estimated GFR/1.73 m2 14.34 Glucose 117 H Calcium 8.8 Total Bilirubin 0.6 AST 71 H ALT 82 H Alkaline Phosphatase 99 Total Protein 8.1 Albumin 3.5 Lipase 373 Urine Color Yellow Urine Clarity Clear Urine pH 5.5 Ur Specific [place] 1.020 Urine Protein Negative Urine Ketones Negative Urine Blood Trace-intact H Urine Nitrite Negative Urine Bilirubin Negative Urine Urobilinogen 0.2 Ur Leukocyte Esterase Small H Urine RBC 0-2 Urine WBC 10-20 H Ur Epithelial Cells Rare Urine Crystals Negative Urine Bacteria Moderate Urine Casts Negative Urine Mucus Negative Ur Culture Indicated? Yes Ur Random Creatinine Ur Random Sodium Urine Glucose Negative COVID-19 Source SARS-CoV-2 (PCR) 11/06/20 11/06/20 18:23 20:10 WBC RBC Hgb Hct MCV MCH MCHC RDW Plt Count MPV Immature Gran % Neutrophils % Lymphocytes % Monocytes % Eosinophils % Basophils % Nucleated RBC % Absolute Neutrophils Absolute Lymphocytes Absolute Monocytes Absolute Eosinophils Absolute Basophils Sodium Potassium Chloride Carbon Dioxide Anion Gap BUN Creatinine Estimated GFR/1.73 m2 Glucose Calcium Total Bilirubin AST ALT Alkaline Phosphatase Total Protein Albumin Lipase Urine Color Urine Clarity Urine pH Ur Specific [place] Urine Protein Urine Ketones Urine Blood Urine Nitrite Urine Bilirubin Urine Urobilinogen Ur Leukocyte Esterase Urine RBC Urine WBC Ur Epithelial Cells Urine Crystals Urine Bacteria Urine Casts Urine Mucus Ur Culture Indicated? Ur Random Creatinine 171.15 Ur Random Sodium < 5 Urine Glucose COVID-19 Source Nasal/nares SARS-CoV-2 (PCR) Negative Last Vital Signs Temp 36.5 C 11/06/20 20:40 Pulse 64 11/06/20 20:40 Resp 18 11/06/20 20:40 BP 133/72 11/06/20 20:40 Pulse Ox 100 11/06/20 20:40 COVID-19 Screening Have you, or household traveled for leisure in last 14 days?: No Had IN PERSON contact w/suspected or confirmed C-19 person: No
--- NOTE | 2020-11-07 | DI.US_ITS ---
Exam(s) US ABDOMEN RENAL EXAM: US ABDOMEN RENAL CLINICAL HISTORY: FREDDIE on CKD TECHNIQUE: Ultrasound abdomen performed using standard protocol. COMPARISON: No exams were available for comparison FINDINGS: ABDOMINAL AORTA AND IVC: Visualized portions normal caliber. PANCREAS: Unable to visualize due to patient body habitus. LIVER: Normal. Hepatopedal flow in the Portal Vein. The liver measures 20.8 cm in length. GALLBLADDER: Cholelithiasis. No evidence of wall thickening. No pericholecystic fluid identified. BILIARY SYSTEM: Common bile duct measures < 7 mm. No intrahepatic biliary ductal dilation. MORALES'S SIGN: Negative. SPLEEN: Not enlarged. ASCITES: None seen. Renal size in cm: Right: 13.7. Left: 12.7. Echogenicity: Normal. Hydronephrosis: No. Cyst or mass: There is a 3 cm simple cyst in the midpole of the right kidney. Nephrolithiasis: No. Other findings: None. Bladder:The patient voided prior to the exam emptying the bladder. The urinary bladder therefore can not be evaluated on this examination. Renal color flow: Symmetric and within normal limits. IMPRESSION: 1. Hepatomegaly. 2. Cholelithiasis. No findings to suggest acute cholecystitis. 3. 3 cm simple cyst in the superior pole of the right kidney. 4. Urinary bladder not evaluated as the patient voided prior to the examination. DATA REPOSITORY:
[2020-11-07 00:07] VITALS: BP 113/66; PULSE 61; RESP 18; TEMP 36.2; O2SAT 99
[2020-11-07 07:49] VITALS: BP 118/69; PULSE 60; RESP 17; TEMP 36; O2SAT 98
[2020-11-07 07:49] LABS: ALT 72 U/L (16-63); AST 57 U/L (15-37); Albumin 3.2 g/dL (3.4-5.0); Alkaline Phosphatase 73 U/L (46-116); Anion Gap 11.9 mmol/L (3-11); BUN 71 mg/dL (7-18); Bilirubin, Total 0.7 mg/dL (0.2-1.0); CO2 23.1 mmol/L (21.0-32.0); CREATININE 3.5 mg/dL (0.70-1.30); Calcium 8.7 mg/dL (8.5-10.1); Chloride 106 mmol/L (98-107); Estimated GFR 17.21 (mL/min/1.73m2); Glucose 108 mg/dL (74-106); Potassium 4.3 mmol/L (3.5-5.1); Sodium 141 mmol/L (136-145); Total Protein 7.4 g/dL (6.4-8.2)
[2020-11-07] MEDS: Metoprolol CR 100 MG TABCR 200 MG PO (08:23)
[2020-11-07] MEDS: Loperamide 2 MG CAP PO ×3 (08:23→19:29)
[2020-11-07] MEDS: Folic Acid 1 MG TAB PO (08:23)
[2020-11-07] MEDS: Apixaban 5 MG TAB PO ×2 (10:15→19:30)
[2020-11-07] MEDS: Cholestyramine/Aspartame PKT 1 EACH PO ×2 (11:21→19:29)
[2020-11-07] MEDS: DEXTROSE 5%-0.45% SALINE 1,000 ML 150 ML IV ×2 (12:26→19:08)
--- NOTE | 2020-11-07 14:08 | PGE_ITS ---
Date of Service Date of service: 11/07/20 Time of Service: 14:08 Assessment and Plan Assessment and plan (1) FREDDIE (acute kidney injury): Status: Acute Assessment and plan: Unclear timing of worsening renal function. Because Cr has doubled since last documented level this is possible FREDDIE, though progression of chronic renal disease also possible. continue IV fluids No signs of obstruction, get u/s of bladder and kidneys to confirm. Getting urine lytes for FENA which looks prerenal Follow renal function. avoid nephrotoxic drugs renal dosing as needed. electrolytes stable at this time, will order nutrition counseling but agree to liberalize diet at this time at his request. (2) Acute UTI: Status: Acute Assessment and plan: not convinced he has UTI as he doesn't have signficant UTI symptoms. Will not continue antibiotic (3) Anemia of chronic disease: Status: Chronic Assessment and plan: in august low iron, high ferritin. Also nl B12. h/h currently near recent baseline. (4) Open abdominal wall wound: Status: Acute Assessment and plan: improving per report, continue wound care (5) Paroxysmal A-fib: Status: Acute Assessment and plan: on metoprolol and apixaban, exam c/w NSR today (6) Elevated transaminase level: Status: Acute Assessment and plan: AST/ALT have been elevated since surgeries. Getting abdominal u/s. Should have hep screen but can do as outpatient. iron studies not c/w HH. At risk for RAMIREZ. Follow. (7) DVT prophylaxis: Status: Acute Assessment and plan: on eliquis for episode of pAfib. (8) Discharge planning issues: Status: Acute Assessment and plan: stable on medical floor. Once Cr improves or is clearly stable, discharge for renal follow up. discussed with Dr Bailey Subjective Subjective Patient reports: no new complaints, tolerating liquids well and afebrile Exam Const General: cooperative, healthy appearing, comfortable and no acute distress Orientation: alert, awake and oriented x3 HENMT Head: normal to inspection, normocephalic and atraumatic Face and sinus: normal facial exam Mouth: moist mucous membranes Eyes General: appearance normal, both eyes and all related structures Conjunctivae: conjunctivae normal Neck Neck: normal visual inspection, trachea midline and supple Resp Effort & Inspection: normal respiratory effort and able to speak in complete sentences Auscultation: clear to auscultation bilaterally Cardio Rate: regular rate Rhythm: regular rhythm GI Inspection: normal to inspection (ostomy right upper quad, draining loose brown fluid) Palpation: soft and nontender Auscultation: normal bowel sounds Back/Spine/Pelvis Back: No back tenderness Skin General skin exam: no rashes or lesions noted Neuro General: patient alert, patient awake, moves all extremities and no focal motor deficits Cognition: normal cognition Speech: speech normal Gait: normal gait Sensory Exam: no sensory deficits noted Extrem General: normal to inspection, full ROM and capillary refill normal Psych Appearance: grossly normal Mental Status: mental status grossly normal Objective Last Vital Signs Temp 36.0 C L 11/07/20 07:49 Pulse 60 11/07/20 07:49 Resp 17 11/07/20 07:49 BP 118/69 11/07/20 07:49 Pulse Ox 98 11/07/20 07:49 Laboratory Results - last 24 hr 11/06/20 11/06/20 11/06/20 17:35 17:35 18:23 WBC 10.48 RBC 3.67 L Hgb 10.7 L Hct 33.5 L MCV 91.3 MCH 29.2 MCHC 31.9 L RDW 13.2 Plt Count 249 MPV 11.0 Immature Gran % 0.4 Neutrophils % 62.2 Lymphocytes % 16.2 Monocytes % 12.0 Eosinophils % 8.5 Basophils % 0.7 Nucleated RBC % 0 Absolute Neutrophils 6.52 Absolute Lymphocytes 1.70 Absolute Monocytes 1.26 H Absolute Eosinophils 0.89 H Absolute Basophils 0.07 Sodium 137 Potassium 4.4 Chloride 101 Carbon Dioxide 24.4 Anion Gap 11.6 H BUN 89 H* Creatinine 4.1 H* Estimated GFR/1.73 m2 14.34 Glucose 117 H Calcium 8.8 Total Bilirubin 0.6 AST 71 H ALT 82 H Alkaline Phosphatase 99 Total Protein 8.1 Albumin 3.5 Lipase 373 Urine Color Yellow Urine Clarity Clear Urine pH 5.5 Ur Specific [place] 1.020 Urine Protein Negative Urine Ketones Negative Urine Blood Trace-intact H Urine Nitrite Negative Urine Bilirubin Negative Urine Urobilinogen 0.2 Ur Leukocyte Esterase Small H Urine RBC 0-2 Urine WBC 10-20 H Ur Epithelial Cells Rare Urine Crystals Negative Urine Bacteria Moderate Urine Casts Negative Urine Mucus Negative Ur Culture Indicated? Yes Ur Random Creatinine Ur Random Sodium Urine Glucose Negative COVID-19 Source SARS-CoV-2 (PCR) 11/06/20 11/06/20 11/07/20 18:23 20:10 07:09 WBC RBC Hgb Hct MCV MCH MCHC RDW Plt Count MPV Immature Gran % Neutrophils % Lymphocytes % Monocytes % Eosinophils % Basophils % Nucleated RBC % Absolute Neutrophils Absolute Lymphocytes Absolute Monocytes Absolute Eosinophils Absolute Basophils Sodium 141 Potassium 4.3 Chloride 106 Carbon Dioxide 23.1 Anion Gap 11.9 H BUN 71 H D Creatinine 3.5 H Estimated GFR/1.73 m2 17.21 Glucose 108 H Calcium 8.7 Total Bilirubin 0.7 AST 57 H ALT 72 H Alkaline Phosphatase 73 Total Protein 7.4 Albumin 3.2 L Lipase Urine Color Urine Clarity Urine pH Ur Specific [place] Urine Protein Urine Ketones Urine Blood Urine Nitrite Urine Bilirubin Urine Urobilinogen Ur Leukocyte Esterase Urine RBC Urine WBC Ur Epithelial Cells Urine Crystals Urine Bacteria Urine Casts Urine Mucus Ur Culture Indicated? Ur Random Creatinine 171.15 Ur Random Sodium < 5 Urine Glucose COVID-19 Source Nasal/nares SARS-CoV-2 (PCR) Negative
[2020-11-07 15:03] VITALS: BP 131/64; PULSE 59; RESP 17; TEMP 36.2; O2SAT 100
--- NOTE | 2020-11-07 15:46 | CHAPLAIN ---
Boo was in bed when I visited. 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 He said he knew and didn't want to interact any further.
--- NOTE | 2020-11-07 17:06 | PDOC.CMIN ---
- If Service Date Differs Date of service: 11/07/20 Time of Service: 17:06 Care Management Initial Assess REASON FOR HOSPITALIZATION:: FREDDIE/UTI PAST MEDICAL HISTORY/PAST SURGICAL HISTORY:: BMI 40.0-44.9, adult. Carpal tunnel syndrome. Patient denies having. 06/23/20-I didn't even know it was diagnosed, not denying that I have it, just nobody told me I did. Elevated transaminase level. Essential hypertension. History of smoking. Hx of hemorrhoids. Hyperlipidemia. Palliative care patient. Paroxysmal A-fib. Prediabetes. Rhinitis. Sleep disturbance. Tubular adenoma (~2012). Weakness. Weight loss. H/O foot surgery. heel surgery Left. History of creation of ostomy. History of hemicolectomy. Hx of colectomy (~06/24/20). Hx of colonoscopy. Hx of hand surgery. LIF. Hx of tonsillectomy PREVIOUS FUNCTIONAL STATUS/SOCIAL/FAMILY SUPPORTS:: Boo lives in [place] with his . They have one child who lives in [place], and they connect via [employer] often. 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 He is independent at baseline. CURRENT FUNCTIONAL STATUS:: Boo was frustrated earlier in the day and was short tempered with staff, per report. In the afternoon with his 's support he was apologetic, calm and appropriate. ADVANCE DIRECTIVES:: Not on file. CM offered forms, Boo declined. Has patient been provided with info about the portal/API?: Yes Did the patient sign up for the portal?: No CODE STATUS:: Full Code INSURANCE COVERAGE / FINANCIAL ISSUES:: MCR/ BCBS CURRENT HOME/COMMUNITY SERVICES/EQUIPMENT:: CECILIA RN: Ostomy and wound management, tub seat, FWW PRIMARY CARE PHYSICIAN:: Shital Patel POTENTIAL DISCHARGE NEEDS:: Follow up appointments. PATIENT/FAMILY EDUCATION NEEDS:: Review discharge instructions regarding activity levels and medications, discussion of self care needs including Ask Me Three. ANTICIPATED BARRIERS TO DISCHARGE:: None identified at this time. TRANSPORTATION:: TBD by disposition. PLAN:: Boo continues to be closely monitored and treated at this time. Anticipate he will return home for outpatient follow up once his labs have normalized, per MD. CM continues to follow.
[2020-11-07] MEDS: Melatonin 3 MG TAB PO (22:40)
[2020-11-07 23:18] VITALS: BP 130/60; PULSE 58; RESP 18; TEMP 36.4; O2SAT 99
[2020-11-08] MEDS: DEXTROSE 5%-0.45% SALINE 1,000 ML 150 ML IV ×3 (01:49→15:06)
[2020-11-08 07:00] LABS: Anion Gap 8.8 mmol/L (3-11); BUN 58 mg/dL (7-18); CO2 25.2 mmol/L (21.0-32.0); CREATININE 2.7 mg/dL (0.70-1.30); Calcium 8.3 mg/dL (8.5-10.1); Chloride 107 mmol/L (98-107); Estimated GFR 23.22 (mL/min/1.73m2); Glucose 125 mg/dL (74-106); Potassium 4.2 mmol/L (3.5-5.1); Sodium 141 mmol/L (136-145)
[2020-11-08] MEDS: Loperamide 2 MG CAP PO ×3 (07:24→19:49)
[2020-11-08] MEDS: Apixaban 5 MG TAB PO ×2 (07:24→19:49)
[2020-11-08 07:25] VITALS: BP 125/73; PULSE 65; RESP 17; TEMP 36.3; O2SAT 99
[2020-11-08] MEDS: Folic Acid 1 MG TAB PO (07:25)
[2020-11-08] MEDS: Metoprolol CR 100 MG TABCR 200 MG PO (07:25)
[2020-11-08] MEDS: Cholestyramine/Aspartame PKT 1 EACH PO ×2 (11:07→19:50)
--- NOTE | 2020-11-08 11:25 | PDOC.CMDIS ---
LACE Index Scoring Tool - Questions: Length of Stay (in days): 2 Acuity (Admit via E.D.?): Yes Comorbidities: Diabetes w/o Complication E.D. Visits: 3 - Answers: Total Score: 9 Risk of Readmission: Low Risk Care Management Discharge Reason for Hospitalization: FREDDIE/UTI Discharge Plan: Boo will return home with a resumption of CECILIA RN through [facility] (CM faxed notification) and outpatient follow up including diabetic education once his labs have normalized, per MD. He will transport via private vehicle with his . Patient/Family Education Needs: Review discharge instructions regarding activity levels and medications, discussion of self care needs including Ask Me Three. Services Needed at Discharge: DME Agency (Resumption CECILIA RN )
[2020-11-08 12:38] LABS: C Diff PCR Positive (Negative)
[2020-11-08] MEDS: Vancomycin 125 MG CAP PO ×3 (13:51→23:09)
--- NOTE | 2020-11-08 15:34 | W.PM.PROGNOT ---
Date of Service Date of service: 11/08/20 Time of Service: 10:30 Assessment and Plan Assessment and plan (1) Clostridioides difficile infection: Start date: 11/08/20 Start time: 15:47 Status: Acute Assessment and plan: Stool for cdiff positive, likely why patient in FREDDIE, from dehydration. Will continue fluids at 75, vanco po x 10 days bio-k questrian as below (2) FREDDIE (acute kidney injury): Start date: 11/08/20 Start time: 15:42 Status: Acute Assessment and plan: Patient positive for cdiff, likely in setting of fluid loss causing FREDDIE from dehydration, improving down to 2.7. continue IV fluids U/S negative . FENA 0.06 Follow renal function. avoid nephrotoxic drugs renal dosing as needed. electrolytes stable at this time, will order nutrition counseling but agree to liberalize diet at this time at his request. (3) Anemia of chronic disease: Start date: 11/08/20 Start time: 15:43 Status: Chronic Assessment and plan: in august low iron, high ferritin. Also nl B12. h/h currently near recent baseline. (4) Open abdominal wall wound: Start date: 11/08/20 Start time: 15:43 Status: Acute Assessment and plan: improving per report, continue wound care (5) Paroxysmal A-fib: Start date: 11/08/20 Start time: 15:43 Status: Chronic Assessment and plan: on metoprolol and apixaban, exam c/w NSR today (6) Elevated transaminase level: Start date: 11/08/20 Start time: 15:44 Status: Acute Assessment and plan: AST/ALT have been elevated since surgeries. Will repeat liver panel in am, trending down 1. Hepatomegaly. 2. Cholelithiasis. No findings to suggest acute cholecystitis. 3. 3 cm simple cyst in the superior pole of the right kidney. 4. Urinary bladder not evaluated as the patient voided prior to the examination. (7) DVT prophylaxis: Start date: 11/08/20 Start time: 15:45 Status: Acute Assessment and plan: on eliquis for episode of pAfib. (8) Discharge planning issues: Start date: 11/08/20 Start time: 15:45 Status: Acute Assessment and plan: stable on medical floor. Once Cr improves or is clearly stable, discharge for renal follow up. discussed with Dr Cox Subjective Subjective Patient reports: feels better Interval history since last seen: Sitting up in chair, feeling well, creatinine improved to 2.7, he did have a positive stool study for cdiff. placed on vanco po and questrian po. Will treat for 10 days. He is likely going to be discharged home tomorrow. He denies CP, SOB, N/V/D Exam Narrative Exam Narrative: GEN: Alert and oriented, pleasent and cooperative, gives linear history. No acute distress at rest. HEENT: Head atraumatic. Conjunctiva clear, no icterus. PEERL, EOMI. no rhinorrhea. MMM, OP benign. Neck is supple with no masses or lymphadenopathy, trachea midline LUNGS: CTAB with normal effort CV: RRR with no murmurs, gallops, or rubs. ABD: +BS, soft, NT/ND, stoma appears healthy, pink EXT: no cyanosis, clubbing, or edema MSK: No joint redness or swelling. No CVA tenderness NEURO: CN 2-12 grossly intact. Normal movement of 4 extremities. Normal speech and coordination SKIN: No rashes other than 12.5cm long and 3-5cm wide wound in midline abdomen. Some areas epithelialized and some areas of open graulation that is draining some whitish discharge superiorly. PSYCH: normal mood and affect Objective Last Vital Signs Temp 36.3 C L 11/08/20 07:25 Pulse 65 11/08/20 07:25 Resp 17 11/08/20 07:25 BP 125/73 11/08/20 07:25 Pulse Ox 99 11/08/20 07:25 Laboratory Results - last 24 hr 11/08/20 11/08/20 06:20 11:05 Sodium 141 Potassium 4.2 Chloride 107 Carbon Dioxide 25.2 Anion Gap 8.8 BUN 58 H Creatinine 2.7 H D Estimated GFR/1.73 m2 23.22 Glucose 125 H Calcium 8.3 L Stl C.difficile Tox PCR Positive A
[2020-11-08 17:21] VITALS: BP 129/76; PULSE 56; RESP 17; TEMP 36.9; O2SAT 98
[2020-11-08] MEDS: Melatonin 3 MG TAB PO (23:09)
[2020-11-08] MEDS: DEXTROSE 5%-0.45% SALINE 1,000 ML 75 ML IV (23:19)
[2020-11-08 23:23] VITALS: BP 112/65; PULSE 62; RESP 18; TEMP 36.8; O2SAT 96
[2020-11-09] MEDS: Vancomycin 125 MG CAP PO (05:18)
[2020-11-09 06:47] LABS: Abs Immature Grans 0.03 10^3/uL (0.0-0.06); Absolute Basophil Count 0.05 10^3/uL (0.0-0.2); Absolute Eosinophil Count 0.87 10^3/uL (0.0-0.7); Absolute Lymphocyte Count 1.41 10^3/uL (1.2-3.4); Absolute Monocyte Count 0.98 10^3/uL (0.1-0.8); Absolute Neutrophil Count 5.04 10^3/uL (1.2-6.7); Basophils % 0.6; Eosinophils % 10.4; HCT 29.2 % (40.0-50.0); HGB 9.3 g/dL (13.5-17.5); Immature Grans % 0.4; Lymphocytes % 16.8; MCH 29.9 pg (27.0-33.0); MCHC 31.8 % (32.0-36.0); MCV 93.9 fL (80-95); MPV 11.1 fL (8.0-11.0); Monocytes % 11.7; Neutrophils % 60.1; Nucleated RBC 0 %; Platelet Count 190 10^3/uL (130-400); RBC 3.11 10^6/uL (4.36-5.78); RDW 13.5 % (11.8-14.1); RDW-SD 45.9 fL; WBC 8.38 10^3/uL (4.4-10.8)
[2020-11-09 07:03] LABS: Anion Gap 9.1 mmol/L (3-11); BUN 46 mg/dL (7-18); CO2 21.9 mmol/L (21.0-32.0); CREATININE 2.4 mg/dL (0.70-1.30); Chloride 110 mmol/L (98-107); Glucose 105 mg/dL (74-106); Potassium 4.2 mmol/L (3.5-5.1); Sodium 141 mmol/L (136-145)
[2020-11-09 07:15] LABS: ALT 47 U/L (16-63); AST 38 U/L (15-37); Albumin 2.6 g/dL (3.4-5.0); Alkaline Phosphatase 56 U/L (46-116); Bilirubin, Direct 0.2 mg/dL (0.0-0.2); Bilirubin, Total 0.6 mg/dL (0.2-1.0); Total Protein 6.4 g/dL (6.4-8.2)
[2020-11-09] MEDS: Loperamide 2 MG CAP PO (07:45)
[2020-11-09] MEDS: Metoprolol CR 100 MG TABCR 200 MG PO (07:45)
[2020-11-09] MEDS: Cholestyramine/Aspartame PKT 1 EACH PO (07:45)
[2020-11-09] MEDS: Folic Acid 1 MG TAB PO (07:46)
[2020-11-09] MEDS: Apixaban 5 MG TAB PO (07:46)
[2020-11-09 07:50] VITALS: BP 126/69; PULSE 60; RESP 18; TEMP 36.7; O2SAT 97
--- NOTE | 2020-11-09 09:06 | DSE_ITS ---
Date of service: 11/09/20 Time of Service: 09:06 DS: Diagnosis Discharge Diagnosis (1) Clostridioides difficile infection: Start date: 11/09/20 Start time: 09:06 Status: Acute Asessment and Plan: Likely the cause of FREDDIE secondary to dehydration. Due to being in the SB he did not realize how much was flowing. Stop imdoium while having cdiff. 10 day course vanco. Questrian prn as needed to help slow down the stool. His renal function has improved to 2.4, near baseline, he states baseline is 1.9. He feels good and would like to go home. Encourage increase in PO intake, while being treated for cdiff to decrease risk for dehydration Repeat bmp in 2 days Follow up with PCP by /Tuesday Take probiotic daily Eat yogurt twice daily for at least 1 month after finishing antibiotics. (2) FREDDIE (acute kidney injury): Start date: 11/09/20 Start time: 09:10 Status: Resolved Asessment and Plan: Improved, due to above Repeat bmp in 3 days (3) Anemia of chronic disease: Start date: 11/09/20 Start time: 09:11 Status: Chronic Asessment and Plan: continue home folate (4) Open abdominal wall wound: Start date: 11/09/20 Start time: 09:11 Status: Acute Asessment and Plan: being followed by surgery at [facility], continue wound care athome (5) Paroxysmal A-fib: Start date: 11/09/20 Start time: 09:11 Status: Chronic Asessment and Plan: continue eliquis (6) Elevated transaminase level: Start date: 11/09/20 Start time: 09:12 Status: Acute Asessment and Plan: Significantly improved, Ast 38 and ALT normalized. discussed with Dr. Cox Discharge Plan Disposition Patient Disposition: HOME Condition: Improving Discharge Details Reason For Visit: FREDDIE\UTI Admit Date/Time: 11/06/20 19:18 Admit Provider: Gabriel Lazaro Attending Provider: Gabriel Lazaro Primary Care Provider: Shital Patel Hospital Course Hospital Course: 75 yo M s/p hemicolectomy of SB in June 24, 2020 for localized colon cancer, readmitted 06/30/20 for anastamotic leak and subsequent prolonged ICU stay with complicated infection and possible fistula, history of admission 08/06/20 for acute renal failure felt at that time to be secondary to pre-renal azotemia from dehydration. High creatinine at that point was 4.8, decreased to 3.0 at discharge 08/08/20. Looking at [facility] records, his last BMP was 08/15/20 and showed Cr 1.98. He has been feeling well. He still gets tired with exertion, but fatigue had been improving. Has had normal urine output and flow and staying hydrated. He did endorse some increase urination to ED clinician. No recent change in ostomy output, takes loperiamide BID to limit ouput volume. He had routine labs with PCP today and sent to ED with BUN 89 and Cr 4.1. He was admitted to hospitalist service for further management. Over course of treatment he was placed on IVF, h/h was low over admission he does have history of anemia, he never required transfusion. AST/ALT on admission were 76/86 today they are 38 and 47, they have normalized with IVF. Creatinine went from 4.1 to 2.4, he was found positive for cdiff, likely the cause of dehydration secondary to infection. Started on vancomycin po x 10 days, questrian TID prn, bio-k and encouraged to drink plenty of IVF. BUN is down from 84 to 46, per patient his baseline is 1.9 creatinine. He feels good and would like to go home. He is trending down. He will be discharged home with repeat bmp in 3 days. Follow up with PCP by end of week. Recommend increasing fluids at this time until cdiff resolved. Hold imodium also until cdiff resolves. He did have u/s abd 1. Hepatomegaly. 2. Cholelithiasis. No findings to suggest acute cholecystitis. 3. 3 cm simple cyst in the superior pole of the right kidney. 4. Urinary bladder not evaluated as the patient voided prior to the examination. Urine cx was negative. He is voiding without difficulty. No nausea, vomiting, diarrhea. Denies CP, SOB. Home Meds and New Rx's Prescriptions: New vancomycin 125 mg Capsule 125 mg PO Q6H Qty: 36 RF: 0 Prevalite 4 gram Powder In Packet 1 ea PO 0800,1400,2000 PRN (Reason: liquid stool) Qty: 20 RF: 0 Bio-K plus 50 billion cell Capsule,Delayed Release(Dr/Ec) 1 cap PO DAILY Qty: 90 RF: 0 Continued folic acid 1 mg tablet 1 mg PO DAILY RF: 0 metoprolol succinate 200 mg tablet extended release 24 hr 200 mg PO DAILY AM RF: 0 Eliquis 5 mg tablet 5 mg PO BID RF: 0 melatonin 3 mg Capsule 3 mg PO HS RF: 0 Discontinued loperamide [Imodium A-D] 2 mg tablet 2 mg PO Q6H Qty: 1 RF: 0 Discharge Instructions Instructions: Dehydration (DC), Acute Kidney Injury (DC), C. Diff (Clostridioides Difficile) Infection (DC) Additional Instructions: Drink 2-2.5 L of fluids you may want to increase your fluids up to 3 liters until cdiff resolves to prevent dehydration in afib Eat yogurt twice daily activa would be best for your gut health eat it up to one month after finishing antibiotics Follow up with PCP by the end of the week Follow up for lab work by or Tue. Call Tuesday to schedule for Tuesday or Tue Take probiotic daily Drink pedilyte for electrolyte balance do not drink gatroade or powerade Stand Alone Forms: Nursing Discharge Form Referrals: [facility],lab [Other] (call the lab tuesday to get blood drawn tuesday and tuesday) Shital Patel [Primary Care Provider] - (we will call you with an appt for this week) Activity:: Activity as Tolerated Equipment/Supplies:: No Equipment Needed Diet:: Low Sodium Discharge Orders Discharge Orders: Discharge Order (Routine); Ordered 11/09/20 Ordered By: Agueda Felder Other Ambulatory Orders: Basic Metabolic Panel (Routine) Location: None Selected Ordered By: Agueda Felder DS: Summary Time Spent with Patient providing and/or coordinating discharge services: Greater than 30 minutes Status at Discharge Functional status at discharge: independent ambulation Overall status at discharge: patient is progressing back to baseline Mental Status: mental status grossly normal Speech and Movement: speech and movement normal Mood: congruent mood Affect: normal affect Exam Narrative Exam Narrative: GEN: Alert and oriented, pleasent and cooperative, gives linear history. No acute distress at rest. HEENT: Head atraumatic. Conjunctiva clear, no icterus. PEERL, EOMI. no rhinorrhea. MMM, OP benign. Neck is supple with no masses or lymphadenopathy, trachea midline LUNGS: CTAB with normal effort CV: RRR with no murmurs, gallops, or rubs. ABD: +BS, soft, NT/ND, stoma appears healthy, pink EXT: no cyanosis, clubbing, or edema MSK: No joint redness or swelling. No CVA tenderness NEURO: CN 2-12 grossly intact. Normal movement of 4 extremities. Normal speech and coordination SKIN: No rashes other than 12.5cm long and 3-5cm wide wound in midline abdomen. Some areas epithelialized and some areas of open graulation that is draining some whitish discharge superiorly. PSYCH: normal mood and affect Psych Mental Status: mental status grossly normal Speech and Movement: speech and movement normal Mood: congruent mood Affect: normal affect DS: Data Vitals/I&O Vitals and I&O: Vital Signs Temperature 36.7 C 11/09/20 07:50 Temperature Source Skin 11/09/20 07:50 Pulse 60 11/09/20 07:50 Pulse Rhythm Regular 11/09/20 02:56 Pulse 71 11/06/20 19:31 Respiratory Rate 18 11/09/20 07:50 Respiratory Effort Non-Labored 11/09/20 02:56 Respiratory Depth Normal 11/09/20 02:56 Respiratory Pattern Normal 11/09/20 02:56 Blood Pressure 126/69 11/09/20 07:50 Blood Pressure Mean 64 11/06/20 19:30 Blood Pressure Position Supine 11/06/20 17:23 Pulse Oximetry 97 11/09/20 07:50 Oxygen Delivery Method Room Air 11/09/20 07:50 Oxygen Flow Rate 0 11/09/20 07:50 Pain Level 0 11/09/20 07:42 Comment 11/09/20 07:42 Intake & Output 11/08/20 11/08/20 11/09/20 11:59 23:59 11:59 Intake Total 2240 / 4016.25 1776. / 4016.25 840 / 840 Output Total 550 / 2175 1625 / 2175 1000 / 1000 Balance 1690 / 1841.25 151.25 / 1841.25 -160 / -160 Intake: IV 1999. 1736. / 3735.25 Oral 240 / 280 40 / 280 840 / 840 Output: Urine 300 / 1150 850 / 1150 750 / 750 Stool 250 / 1025 775 / 1025 250 / 250 Other: Urine Color Yellow Yellow Yellow Urine Appearance Clear Clear Clear Urine Odor Normal Normal Normal Comment Asked if pT had to urinate, said no Void x1 in the urinal. Void x1 in the urinal. Voiding Methods Urinal Urinal Urinal Data Completed and Pending Completed studies during hospitalization [Text1]: Patient Name: Boo Coley #: [id number]: MS Ordering Provider: Jerry Lazaro #: [id number]: ADM IN Primary Care Provider: Fannie Patel of Exam: 11/07/20Sex: M Admission Date: 11/06/20 : 1945 Age: 75 Exam(s) US ABDOMEN RENAL EXAM: US ABDOMEN RENAL CLINICAL HISTORY: FREDDIE on CKD TECHNIQUE: Ultrasound abdomen performed using standard protocol. COMPARISON: No exams were available for comparison FINDINGS: ABDOMINAL AORTA AND IVC: Visualized portions normal caliber. PANCREAS: Unable to visualize due to patient body habitus. LIVER: Normal. Hepatopedal flow in the Portal Vein. The liver measures 20.8 cm in length. GALLBLADDER: Cholelithiasis. No evidence of wall thickening. No pericholecystic fluid identified. BILIARY SYSTEM: Common bile duct measures < 7 mm. No intrahepatic biliary ductal dilation. MORALES'S SIGN: Negative. SPLEEN: Not enlarged. ASCITES: None seen. Renal size in cm: Right: 13.7. Left: 12.7. Echogenicity: Normal. Hydronephrosis: No. Cyst or mass: There is a 3 cm simple cyst in the midpole of the right kidney. Nephrolithiasis: No. Other findings: None. Bladder:The patient voided prior to the exam emptying the bladder. The urinary bladder therefore cannot be evaluated on this examination. Renal color flow: Symmetric and within normal limits. IMPRESSION: 1. Hepatomegaly. 2. Cholelithiasis. No findings to suggest acute cholecystitis. 3. 3 cm simple cyst in the superior pole of the right kidney. 4. Urinary bladder not evaluated as the patient voided prior to the examination Labs on day of discharge: Labs from last 24 hours 11/09/20 11/09/20 11/09/20 06:10 06:10 06:10 WBC 8.38 RBC 3.11 L Hgb 9.3 L Hct 29.2 L MCV 93.9 MCH 29.9 MCHC 31.8 L RDW 13.5 Plt Count 190 MPV 11.1 H Immature Gran % 0.4 Neutrophils % 60.1 Lymphocytes % 16.8 Monocytes % 11.7 Eosinophils % 10.4 Basophils % 0.6 Nucleated RBC % 0 Absolute Neutrophils 5.04 Absolute Lymphocytes 1.41 Absolute Monocytes 0.98 H Absolute Eosinophils 0.87 H Absolute Basophils 0.05 Sodium 141 Potassium 4.2 Chloride 110 H Carbon Dioxide 21.9 Anion Gap 9.1 BUN 46 H D Creatinine 2.4 H Estimated GFR/1.73 m2 26.60 Glucose 105 Calcium 8.0 L Total Bilirubin 0.6 Conjugated Bilirubin 0.2 AST 38 H ALT 47 Alkaline Phosphatase 56 Total Protein 6.4 Albumin 2.6 L Stool Campylobacter PCR Stl C.difficile Tox PCR Stool Salmonella PCR Stool Shigella PCR Shiga Toxin (PCR) 11/08/20 11/08/20 11:05 11:05 WBC RBC Hgb Hct MCV MCH MCHC RDW Plt Count MPV Immature Gran % Neutrophils % Lymphocytes % Monocytes % Eosinophils % Basophils % Nucleated RBC % Absolute Neutrophils Absolute Lymphocytes Absolute Monocytes Absolute Eosinophils Absolute Basophils Sodium Potassium Chloride Carbon Dioxide Anion Gap BUN Creatinine Estimated GFR/1.73 m2 Glucose Calcium Total Bilirubin Conjugated Bilirubin AST ALT Alkaline Phosphatase Total Protein Albumin Stool Campylobacter PCR Pending Stl C.difficile Tox PCR Positive A Stool Salmonella PCR Pending Stool Shigella PCR Pending Shiga Toxin (PCR) Pending [facility] Medical History BMI 40.0-44.9, adult Carpal tunnel syndrome Patient denies having. 06/23/20-I didn't even know it was diagnosed, not denying that I have it, just nobody told me I did Elevated transaminase level Essential hypertension History of smoking Hx of hemorrhoids Hyperlipidemia Palliative care patient Paroxysmal A-fib Prediabetes Rhinitis Sleep disturbance Tubular adenoma (~2012) Weakness Weight loss Surgical History H/O foot surgery heel surgery Left History of creation of ostomy History of hemicolectomy Hx of colectomy (~06/24/20) Hx of colonoscopy Hx of hand surgery LIF Hx of tonsillectomy Family History Mother Heart disease Alcohol abuse Social History Smoking/Tobacco Use Status: Former Tobacco Use Smoking risk assessment performed?: Yes Alcohol Intake: current Alcohol Intake frequency: a few times a week Alcohol type: beer and hard liquor Drug use: Never Substance use type: does not use Current gender identity: male Do you feel safe at home: Yes Do you feel safe in your relationship?: Yes Additional Social history: 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 Grew up in [facility]. Lives with Fariha in [facility].
--- NOTE | 2020-11-10 08:58 | NUR.NOTE ---
11/10/20 @ 0857Nursing Note: Called patient after making a follow up appointment after discharge. Patient stated the appointment time of 11/14/20 @ 10:15 would not work for him. Patient will call and reschedule.
[2020-11-10 12:39] LABS: Campylobacter PCR Negative (Negative); Salmonella PCR Negative (Negative); Shiga Toxin PCR Negative (Negative); Shigella/Enteroinvasive Ecoli Negative (Negative)
== END 2020-11-09 11:19 | disposition home or self-care (01) | DRG 372 ==
LOC: ER 19:31 → MS 20:17
PROVIDERS: Nurse Practitioner Acute Care; Nurse Practitioner Family; Admitting Provider Family Medicine; Emergency Provider Physician Assistant; PCP Nurse Practitioner Family; Visit Provider Family Medicine
DX: A04.72 Enterocolitis due to Clostridium difficile, not specified as recurrent (principal); N17.9 Acute kidney failure, unspecified; K63.2 Fistula of intestine; I48.0 Paroxysmal atrial fibrillation; N18.9 Chronic kidney disease, unspecified; Z93.2 Ileostomy status; I12.9 Hypertensive chronic kidney disease with stage 1 through stage 4 chronic kidney disease, or unspecified chronic kidney disease; E78.5 Hyperlipidemia, unspecified; R74.01 Elevation of levels of liver transaminase levels; R73.03 Prediabetes; R53.1 Weakness; R63.4 Abnormal weight loss; Z20.822 Contact with and (suspected) exposure to COVID-19; D63.1 Anemia in chronic kidney disease; Z98.0 Intestinal bypass and anastomosis status; Z79.01 Long term (current) use of anticoagulants; Z90.49 Acquired absence of other specified parts of digestive tract; Z87.891 Personal history of nicotine dependence; Z85.038 Personal history of other malignant neoplasm of large intestine; E86.0 Dehydration; K80.20 Calculus of gallbladder without cholecystitis without obstruction; R16.0 Hepatomegaly, not elsewhere classified
CPT/HCPCS: 36415; 76770; 80048; 80053; 80076; 83690; 87493; 87505; 87635; 96360; 96361; 99285; 76700; 81003; 81015; 82565; 84300; 85025; 87086; 99232; 99233; 99239

== ENCOUNTER 2020-11-14 16:10 | Outpatient (REF) | payer BC, SELFPAY ==
[2020-11-14 18:48] LABS: HCT 31.7 % (40.0-50.0); HGB 9.8 g/dL (13.5-17.5); MCH 29.4 pg (27.0-33.0); MCHC 30.9 % (32.0-36.0); MCV 95.2 fL (80-95); MPV 11.1 fL (8.0-11.0); Platelet Count 236 10^3/uL (130-400); RBC 3.33 10^6/uL (4.36-5.78); RDW 13.2 % (11.8-14.1); WBC 10.31 10^3/uL (4.4-10.8)
[2020-11-14 18:55] LABS: Anion Gap 8.2 mmol/L (3-11); BUN 34 mg/dL (7-18); CO2 25.8 mmol/L (21.0-32.0); CREATININE 2.8 mg/dL (0.70-1.30); Calcium 8.4 mg/dL (8.5-10.1); Chloride 106 mmol/L (98-107); Estimated GFR 22.26 (mL/min/1.73m2); Glucose 116 mg/dL (74-106); Sodium 140 mmol/L (136-145)
== END 2020-11-14 16:11 | disposition home or self-care (01) ==
LOC: NCHCN 16:10
PROVIDERS: PCP Nurse Practitioner Family; Visit Provider Nurse Practitioner Family
DX: I48.91 Unspecified atrial fibrillation (principal)
CPT/HCPCS: 80048; 85027

== ENCOUNTER 2021-03-02 20:07 | Emergency (ER) | payer BC, SELFPAY ==
[2021-03-02 20:11] VITALS: BP 144/75; PULSE 89; TEMP 36.6; O2SAT 99
--- NOTE | 2021-03-02 21:13 | W.ED.GENAD ---
Discharge Plan Disposition Patient Disposition: HOME Condition: Stable Discharge Details Clinical Impression: Ileostomy dysfunction Primary Care Provider: Shital Patel ED Provider: Reed Workman Home Meds and New Rx's Prescriptions: Continued folic acid 1 mg tablet 1 mg PO DAILY RF: 0 loperamide 2 mg capsule 2 mg PO QHS RF: 0 metoprolol succinate 50 mg tablet extended release 24 hr 50 mg PO DAILY RF: 0 Eliquis 5 mg tablet 5 mg PO DAILY RF: 0 melatonin 3 mg Capsule 3 mg PO HS RF: 0 Discharge Instructions Additional Instructions: No clear signs of cellulitis. I think we have found a temporary solution usine the Penny cream and the barrier cream. Please watch for new or worsening symptoms and return to the ER for any concerns. Lastly, I would like you to contact your ileostomy nurse tomorrow to discuss your ongoing symptoms and need for outpatient reevaluation. Medical Decision Making 75-year-old gentleman having ileostomy dysfunction and skin breakdown presents for evaluation. No signs of secondary infection. He appears well, nontoxic. Unfortunately the supplies that he is typically using are on back order. We searched for the proper supplies however we do not have exactly what he is looking for. Instead we were able to use silk tape which I do believe is better than what he is currently using, we will use barrier cream cloth as well as Epnny cream. We did discuss that there will be a fine balance between managing his skin breakdown, frequent changes of his ileostomy bag and equipment, applying ointment and trying to dry out the skin, etc. He does understand this. He is comfortable discharge at this time and plans to contact his ileostomy nurse tomorrow at [facility]. Standard discharge and return precautions provided This documentation was generated using [employer] dictation system, please disregard any oddities of phrase or misspellings. Medical Records Medical records reviewed: Yes I reviewed the patient's medical records. HPI General Mode of arrival: ambulatory. Date/Time Provider Initiated Documentation: 03/02/21 20:19. Limitations to Documentation: no limitations. Information obtained by: patient. HPI Narrative: This is a 75-year-old gentleman, has had a ileostomy since June after a partial bowel resection, presents today for a leaking ostomy bag and skin irritation after he ran out of supplies roughly 5 days ago. He specifically ran out of a 3 inch off in the wrap, has contacted multiple medical supply stores and these are unfortunately on backorder. He contacted his ileostomy nurse down at [facility], recommended using [place] cream, different tape, powder, and bags etc. Patient has tried all of these things but continues to have to change his bag more frequently, it continues to leak, and the tissue along the medial and inferior aspect is now irritated. Patient denies fever. He denies any change of his stoma output Related Data Home Medications Medication Instructions Recorded Confirmed Eliquis 5 mg PO DAILY 08/06/20 03/02/21 melatonin 3 mg PO HS 08/06/20 03/02/21 folic acid 1 mg PO DAILY 11/06/20 03/02/21 loperamide 2 mg PO QHS 03/02/21 03/02/21 metoprolol succinate 50 mg PO DAILY 03/02/21 03/02/21 Allergies Allergy/AdvReac Type Severity Reaction Status Date / Time Sulfa (Sulfonamide Allergy Mild tight Unverified 11/06/20 17:27 Antibiotics) feeling in scrotum hydrochlorothiazide AdvReac Mild Verified 11/06/20 17:27 lisinopril AdvReac Mild cough Verified 11/06/20 17:27 General Stated Complaint: RashLesion PAMELA: 4 Review of Systems Constitutional Constitutional: Denies fever(s) Gastrointestinal Gastrointestinal: Denies abdominal pain, Denies melena, Denies hematochezia, Denies nausea and Denies vomiting Integumentary/Breasts Skin/Breast: Reports erythema PFSH Medical History BMI 40.0-44.9, adult Carpal tunnel syndrome Patient denies having. 06/23/20-I didn't even know it was diagnosed, not denying that I have it, just nobody told me I did Elevated transaminase level Essential hypertension History of smoking Hx of hemorrhoids Hyperlipidemia Palliative care patient Paroxysmal A-fib Prediabetes Rhinitis Sleep disturbance Tubular adenoma (~2012) Weakness Weight loss Surgical History H/O foot surgery heel surgery Left History of creation of ostomy History of hemicolectomy Hx of colectomy (~06/24/20) Hx of colonoscopy Hx of hand surgery LIF Hx of tonsillectomy Family History Mother Heart disease Alcohol abuse Social History Smoking/Tobacco Use Status: Former Tobacco Use Smoking risk assessment performed?: Yes Alcohol Intake: current Alcohol Intake frequency: a few times a week Alcohol type: beer and hard liquor Drug use: Never Substance use type: does not use Current gender identity: male Do you feel safe at home: Yes Do you feel safe in your relationship?: Yes Additional Social history: 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 Grew up in [place] and [facility]. Lives with Fariha in [facility]. Exam Const General: cooperative, healthy appearing, comfortable and no acute distress Orientation: alert and awake [facility] Head: normal to inspection, normocephalic and atraumatic Eyes General: appearance normal, both eyes and all related structures Conjunctivae: conjunctivae normal Neck Neck: normal visual inspection, trachea midline and supple Resp Effort & Inspection: normal respiratory effort and able to speak in complete sentences GI Palpation: soft and nontender Other: Lower right-middle abdomen ileostomy bag with brown stool. Stoma appears normal, draining appropriately. Surrounding tissue along the inferior and medial aspect slightly erythematous with mild skin breakdown. There is no warmth, streaking, signs of secondary infection. Abdomen otherwise unremarkable. Skin General skin exam: no rashes or lesions noted Neuro General: patient alert, patient awake, moves all extremities and no focal motor deficits Sensory Exam: no sensory deficits noted Psych Appearance: grossly normal Mental Status: mental status grossly normal Course Vital Signs Vital signs: Vital Signs Temperature 36.6 C 03/02/21 20:11 Pulse 89 03/02/21 20:11 Blood Pressure 144/75 H 03/02/21 20:11 Pulse Oximetry 99 03/02/21 20:11 Temperature 36.6 C 03/02/21 20:11 Temperature Source Temporal Artery Scan 03/02/21 20:11 Pulse 89 03/02/21 20:11 Respiratory Effort Non-Labored 03/02/21 20:14 Blood Pressure 144/75 H 03/02/21 20:11 Blood Pressure Position Sitting 03/02/21 20:11 Pulse Oximetry 99 03/02/21 20:11 Oxygen Delivery Method Room Air 03/02/21 20:11 Oxygen Flow Rate 0 03/02/21 20:11 Pain Level 5 03/02/21 20:11
== END 2021-03-02 21:50 | disposition home or self-care (01) ==
PROVIDERS: Emergency Provider Physician Assistant; PCP Nurse Practitioner Family
DX: K94.19 Other complications of enterostomy (principal); R21 Rash and other nonspecific skin eruption
CPT/HCPCS: 99282; 99283

== ENCOUNTER 2021-03-09 03:26 | Emergency (ER) | payer BC, SELFPAY ==
[2021-03-09 03:32] VITALS: BP 155/64; PULSE 58; RESP 18; TEMP 36.8; O2SAT 100
[2021-03-09 03:55] LABS: Abs Immature Grans 0.04 10^3/uL (0.0-0.06); Absolute Eosinophil Count 1.47 10^3/uL (0.0-0.7); Absolute Lymphocyte Count 1.26 10^3/uL (1.2-3.4); Absolute Neutrophil Count 6.68 10^3/uL (1.2-6.7); Eosinophils % 14.2; HCT 34.4 % (40.0-50.0); HGB 10.7 g/dL (13.5-17.5); Immature Grans % 0.4; Lactate 0.9 mmol/L (0.6-1.4); Lymphocytes % 12.2; MCH 29.8 pg (27.0-33.0); MCHC 31.1 % (32.0-36.0); MCV 95.8 fL (80-95); MPV 10.1 fL (8.0-11.0); Monocytes % 7.7; Neutrophils % 64.5; Nucleated RBC 0 %; Platelet Count 202 10^3/uL (130-400); RBC 3.59 10^6/uL (4.36-5.78); RDW 13.1 % (11.8-14.1); RDW-SD 46.5 fL; WBC 10.35 10^3/uL (4.4-10.8)
--- NOTE | 2021-03-09 03:57 | W.ED.GENAD ---
Discharge Plan Disposition Patient Disposition: HOME Condition: Good Discharge Details Clinical Impression: Abdominal pain Primary Care Provider: Shital Patel ED Provider: Jamie Hines Home Meds and New Rx's Prescriptions: Continued folic acid 1 mg tablet 1 mg PO DAILY RF: 0 loperamide 2 mg capsule 2 mg PO QHS RF: 0 metoprolol succinate 50 mg tablet extended release 24 hr 50 mg PO DAILY RF: 0 Eliquis 5 mg tablet 5 mg PO DAILY RF: 0 melatonin 3 mg Capsule 3 mg PO HS RF: 0 Discharge Instructions Instructions: Abdominal Pain (ED) Additional Instructions: At this time your CAT scan shows no evidence of an acute surgical emergency. The pain has resolved. I suspect there may been some stool, gas, or atypical movement of your intestines that was causing the pain that has thankfully since resolved. Continue to monitor your symptoms closely, return if you have any concerns or pain. If you notice any worsening of your symptoms, or any new symptoms such as vomiting, diarrhea, fever, chills, shortness of breath, chest pain, numbness, weakness, or fainting , please return immediately to the emergency department for reevaluation. Please follow up with your primary care provider as soon as possible for reassessment and reevaluation. As always, it was a pleasure participating in your medical care today. 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 fib on Eliquis, hypertension, who presents today for evaluation of abdominal pain. Initial surgery was in June 2020, subsequent surgeries were in late June or early July. He did have a chronic central abdominal wound which is gradually healed well over the last 10 months, as well as his right-sided ostomy. Patient states that this evening he developed relatively sudden onset left lower quadrant pain, he has had decreased output from his ostomy for the last 3 to 4 hours. Last time he ate was at 10 PM last night. He states that normally he would get a significantly greater ostomy output over the last 6 hours comparatively. He describes the pain is achy in the left lower quadrant with no significant radiation he has nausea but no vomiting. He admits to a sensation of flatness but denies any gaseous output to his ostomy site. He denies fever or chills. He denies hematochezia, or hematemesis. No other complaints at this time. No other modifying factors. Physical exam demonstrates mild tenderness in the left lower quadrant, ostomy site is unremarkable. Small amount of output is present. Concern for obstruction, ileus, abscess, or infectious etiology. We will treat the patient's pain, gently rehydrate, CT scan monitor closely and reassess. 5:29 AM Patient's laboratory work-up has returned, no white count, bandemia, left shift. Hemoglobin is 10.7 and actually much better than normal. Platelets stable. Lactate normal. Electrolytes unremarkable, patient's creatinine is 3, and GFR is 20, this is actually as the patient's baseline. On reassessment the patient has a notable incomplete resolution of his pain. He states he feels great, pain is completely gone. He states that he was shortly after CAT scan he noticed a significant increase in gurgling in his abdomen, followed by an increased output in his ostomy and resolution of the pain. He feels well, and feels comfortable to go home. Repeat abdominal exam continues to show no abdominal tenderness at this time. CT scan shows possible pericolic inflammation for clinical correlation however his bilirubin is normal, and he has no significant right upper quadrant tenderness on exam. Negative Escudero sign. No clinical evidence of acute cholecystitis whatsoever. At this time patient stable for discharge. Discussed red flags which to return. Discussed the importance of close PCP follow-up. I have extensively reviewed the treatment plan and discharge instructions with the patient and their family. I have addressed all patient concerns at this time. The patient and family was made aware of what symptoms to monitor for that would warrant a return to the emergency department. Discussed the plan with the patient and family, they demonstrate verbal understanding and agreement with our assessment and plan at this time. The documentation in this chart was dictated using [employer] dictation software. Please excuse any dictation errors. FINDINGS: Liver: Normal. No mass. Gallbladder and bile ducts: Possible pericholecystic inflammation. The gallbladder is not distended. No biliary ductal dilatation. Pancreas: Normal. No ductal dilation. Spleen: Normal. No splenomegaly. Adrenal glands: Normal. No mass. Kidneys and ureters: Stable hyperdense cyst of the right kidney. No hydronephrosis. Nonobstructing calculus in the lower pole of the left kidney. Stomach and bowel: Status post right hemicolectomy with a right upper quadrant colostomy. No evidence of bowel obstruction. There is colonic diverticulosis without diverticulitis. Appendix: No evidence of appendicitis. Intraperitoneal space: Unremarkable. No free air. No significant fluid collection. Vasculature: Unremarkable. No abdominal aortic aneurysm. Lymph nodes: Unremarkable. No enlarged lymph nodes. Urinary bladder: Unremarkable as visualized. Reproductive: Unremarkable as visualized. Bones/joints: Unremarkable. No acute fracture. Soft tissues: Bilateral inguinal hernias containing fat. IMPRESSION: 1. Possible pericholecystic inflammation. Correlate clinically. 2. Colonic diverticulosis without diverticulitis. No evidence of bowel obstruction. Thank you for allowing us to participate in the care of your patient. Dictated and Authenticated by: Joe Mancia MD 03/09/2021 5:10 AM Eastern Time ([place] & [place]) HPI General Date/Time Provider Initiated Documentation: 03/09/21 03:29. 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 fib on Eliquis, hypertension, who presents today for evaluation of abdominal pain. Initial surgery was in June 2020, subsequent surgeries were in late June or early July. He did have a chronic central abdominal wound which is gradually healed well over the last 10 months, as well as his right-sided ostomy. Patient states that this evening he developed relatively sudden onset left lower quadrant pain, he has had decreased output from his ostomy for the last 3 to 4 hours. Last time he ate was at 10 PM last night. He states that normally he would get a significantly greater ostomy output over the last 6 hours comparatively. He describes the pain is achy in the left lower quadrant with no significant radiation he has nausea but no vomiting. He admits to a sensation of flatness but denies any gaseous output to his ostomy site. He denies fever or chills. He denies hematochezia, or hematemesis. No other complaints at this time. No other modifying factors. Related Data Home Medications Medication Instructions Recorded Confirmed Eliquis 5 mg PO DAILY 08/06/20 03/09/21 melatonin 3 mg PO HS 08/06/20 03/09/21 folic acid 1 mg PO DAILY 11/06/20 03/09/21 loperamide 2 mg PO QHS 03/02/21 03/09/21 metoprolol succinate 50 mg PO DAILY 03/02/21 03/09/21 Allergies Allergy/AdvReac Type Severity Reaction Status Date / Time Sulfa (Sulfonamide Allergy Mild tight Unverified 03/09/21 03:39 Antibiotics) feeling in scrotum hydrochlorothiazide AdvReac Mild Verified 03/09/21 03:39 lisinopril AdvReac Mild cough Verified 03/09/21 03:39 General Stated Complaint: Abd Prob PAMELA: 3 Review of Systems All systems reviewed & are unremarkable except as noted in HPI and below PFSH Medical History BMI 40.0-44.9, adult Carpal tunnel syndrome Patient denies having. 06/23/20-I didn't even know it was diagnosed, not denying that I have it, just nobody told me I did Elevated transaminase level Essential hypertension History of smoking Hx of hemorrhoids Hyperlipidemia Palliative care patient Paroxysmal A-fib Prediabetes Rhinitis Sleep disturbance Tubular adenoma (~2012) Weakness Weight loss Surgical History H/O foot surgery heel surgery Left History of creation of ostomy History of hemicolectomy Hx of colectomy (~06/24/20) Hx of colonoscopy Hx of hand surgery LIF Hx of tonsillectomy Family History Mother Heart disease Alcohol abuse Social History Smoking/Tobacco Use Status: Former Tobacco Use Smoking risk assessment performed?: Yes Alcohol Intake: current Alcohol Intake frequency: a few times a week Alcohol type: beer and hard liquor Drug use: Never Substance use type: does not use Current gender identity: male Do you feel safe at home: Yes Do you feel safe in your relationship?: Yes Additional Social history: 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 Grew up in [facility]. Lives with Fariha in [facility]. Exam Narrative Exam Narrative: 1.Const: Well-nourished, Well-developed, appearing stated age 2.Eyes: PERRL, no conjunctival injection, and symmetrical lids. 3.ENT: Atraumatic external nose and ears. Moist MM. Neck: Symmetric, trachea midline, No thyromegaly. 4.CVS: +S1/S2, No murmurs or gallops. Peripheral pulses 2+ and equal in all extremities. Brisk capillary refill in all extremities. 5.RESP: Unlabored respiratory effort. Clear to auscultation bilaterally. No wheezes rales or rhonchi 6.GI: Soft, previous abdominal scars present, gradually healing postoperative site is present, small granulation tissue in the mid center, no significant drainage. No active bleeding, no tenderness. Ostomy site itself is unremarkable, mild amount of output is present. Patient does have mild left lower quadrant tenderness on palpation. No guarding. No significant rebound. No pain in the right lower abdominal quadrant. 7.MSK: Normocephalic/Atraumatic, Extremities w/o deformity or ttp No cyanosis or clubbing, Normal movement of all extremities 8.Skin: Warm, Dry. No rashes or lesions. 9.Neuro: clinical data coordinator II-XII grossly intact. Sensation grossly intact, no focal neurologic deficits. 10.Psych: (AAO) x3. Appropriate mood and affect Course Vital Signs Vital signs: Vital Signs Temperature 36.8 C 03/09/21 03:32 Pulse 58 L 03/09/21 03:32 Respiratory Rate 18 03/09/21 03:32 Blood Pressure 155/64 H 03/09/21 03:32 Pulse Oximetry 100 03/09/21 03:32 Temperature 36.8 C 03/09/21 03:32 Temperature Source Skin 03/09/21 03:32 Pulse 58 L 03/09/21 03:32 Respiratory Rate 18 03/09/21 03:32 Respiratory Effort Non-Labored 03/09/21 03:41 Blood Pressure 155/64 H 03/09/21 03:32 Blood Pressure Position Sitting 03/09/21 03:32 Pulse Oximetry 100 03/09/21 03:32 Oxygen Delivery Method Room Air 03/09/21 03:32 Oxygen Flow Rate 0 03/09/21 03:32 Pain Level 8 03/09/21 03:55 Lab/Test Results Lab/Test Results: Laboratory Tests Range/Units 03/09/21 03/09/21 03:50 03:50 WBC (4.4-10.8) 10^3/uL 10.35 RBC (4.36-5.78) 10^6/uL 3.59 L Hgb (13.5-17.5) g/dL 10.7 L Hct (40.0-50.0) % 34.4 L MCV (80-95) fL 95.8 H MCH (27.0-33.0) pg 29.8 MCHC (32.0-36.0) % 31.1 L RDW (11.8-14.1) % 13.1 Plt Count (130-400) 10^3/uL 202 MPV (8.0-11.0) fL 10.1 Immature Gran % 0.4 Neutrophils % 64.5 Lymphocytes % 12.2 Monocytes % 7.7 Eosinophils % 14.2 Basophils % 1.0 Nucleated RBC % % 0 Absolute Neutrophils (1.2-6.7) 10^3/uL 6.68 Absolute Lymphocytes (1.2-3.4) 10^3/uL 1.26 Absolute Monocytes (0.1-0.8) 10^3/uL 0.80 Absolute Eosinophils (0.0-0.7) 10^3/uL 1.47 H Absolute Basophils (0.0-0.2) 10^3/uL 0.10 VBG Lactate (0.6-1.4) mmol/L 0.9
[2021-03-09 04:00] VITALS: BP 143/59; PULSE 55; RESP 18; O2SAT 100
[2021-03-09 04:11] LABS: ALT 20 U/L (16-63); AST 14 U/L (15-37); Albumin 3.5 g/dL (3.4-5.0); Alkaline Phosphatase 70 U/L (46-116); Anion Gap 10.5 mmol/L (3-11); BUN 37 mg/dL (7-18); Bilirubin, Total 0.6 mg/dL (0.2-1.0); CO2 21.5 mmol/L (21.0-32.0); Calcium 8.5 mg/dL (8.5-10.1); Chloride 108 mmol/L (98-107); Estimated GFR 20.56 (mL/min/1.73m2); Glucose 111 mg/dL (74-106); Potassium 3.4 mmol/L (3.5-5.1); Sodium 140 mmol/L (136-145); Total Protein 7.4 g/dL (6.4-8.2)
--- NOTE | 2021-03-09 04:15 | DI.CT_ITS ---
Exam(s) CT ABDOMEN PELVIS WO EXAM: CT ABDOMEN PELVIS WO CLINICAL HISTORY: ostomy, decreased output, LLQ pain. TECHNIQUE: Imaging Protocol: Axial computed tomography images with coronal and sagittal reformatted images were created and reviewed. Contrast: IV: No Oral: / no COMPARISON: CT CT ABDOMEN PELVIS WO from 08/06/2020 FINDINGS: ABDOMEN: Lung Bases: Normal where visualized. Liver: Normal density. No measurable mass. Gallbladder and biliary tract: No radiodense calculus or dilation. Some right upper quadrant scarring is seen, related to previous surgery. Pancreas: Normal density, no abnormal calcifications or inflammatory process. Spleen: Normal. Kidneys: Normal size, contour and axis. No obstructive uropathy. No masses seen. Nonobstructing stone lower pole left kidney. Hyperdense cyst upper pole right kidney. Adrenal glands: No masses seen. Lymph nodes: Within normal limits. Abdominal Aorta: Abdominal portion non-dilated. Mild calcification. PELVIS: Bladder: Symmetric distention, no gross wall thickening. Bowel: Right upper quadrant ostomy. Right hemicolectomy. Diverticulosis descending and sigmoid colo n. No evidence of diverticulitis. No obstruction . Peritoneal cavity: No ascites, collection or mesenteric inflammatory response. Reproductive organs: Prostate within normal limits in size. Multiple calcifications. Bones: Degenerative disc and facet degenerative changes. No fractures. Bony bridging across the ant erior SI joints. Soft tissues: Anterior midline postsurgical scarring. Small bilateral fatty containing inguinal kate ias. IMPRESSION: No acute abnormality. Status post right hemicolectomy. Right upper quadrant ostomy without evidence of obstruction. Midline abdominal wall scarring. RADIATION DOSE DELIVERED: 1,498.64mGy.cm Total DLP DATA REPOSITORY: All CT scans at this facility are submitted to the National Radiology Data Registry (NRDR) Dose Index Registry (DIR) with the [employer] (A[employer]). RADIATION OPTIMIZATION: All CT scans at this facility use at least one of these dose optimization te chniques: automated exposure control; mA and/or kV adjustment per patient size (includes targeted exa ms where dose is matched to clinical indication); or iterative reconstruction.
[2021-03-09 05:00] VITALS: BP 127/52; PULSE 58; RESP 18; O2SAT 95
--- NOTE | 2021-03-09 05:10 | DI.VRAD_ITS ---
PROCEDURE INFORMATION: Exam: CT Abdomen And Pelvis Without Contrast Exam date and time: 03/09/2021 4:17 AM Age: 75 years old Clinical indication: Abdominal pain; Localized; Left lower quadrant (llq); Prior surgery; Surgery date: 6+ months; Surgery type: Hemicolectomy, ostomy; Patient HX: Ostomy, decreased output, llq pain TECHNIQUE: Imaging protocol: Computed tomography of the abdomen and pelvis without contrast. Radiation optimization: All CT scans at this facility use at least one of these dose optimization techniques: automated exposure control; mA and/or kV adjustment per patient size (includes targeted exams where dose is matched to clinical indication); or iterative reconstruction. COMPARISON: CT ABDOMEN PELVIS WO 08/06/2020 7:22 PM FINDINGS: Liver: Normal. No mass. Gallbladder and bile ducts: Possible pericholecystic inflammation. The gallbladder is not distended. No biliary ductal dilatation. Pancreas: Normal. No ductal dilation. Spleen: Normal. No splenomegaly. Adrenal glands: Normal. No mass. Kidneys and ureters: Stable hyperdense cyst of the right kidney. No hydronephrosis. Nonobstructing calculus in the lower pole of the left kidney. Stomach and bowel: Status post right hemicolectomy with a right upper quadrant colostomy. No evidence of bowel obstruction. There is colonic diverticulosis without diverticulitis. Appendix: No evidence of appendicitis. Intraperitoneal space: Unremarkable. No free air. No significant fluid collection. Vasculature: Unremarkable. No abdominal aortic aneurysm. Lymph nodes: Unremarkable. No enlarged lymph nodes. Urinary bladder: Unremarkable as visualized. Reproductive: Unremarkable as visualized. Bones/joints: Unremarkable. No acute fracture. Soft tissues: Bilateral inguinal hernias containing fat. IMPRESSION: 1. Possible pericholecystic inflammation. Correlate clinically. 2. Colonic diverticulosis without diverticulitis. No evidence of bowel obstruction. Dictated and Authenticated by: Joe Mancia MD. Ordering:OTTO Ayala MD
[2021-03-09 05:30] VITALS: BP 117/55; PULSE 86; RESP 18; TEMP 37.1; O2SAT 96
== END 2021-03-09 05:43 | disposition home or self-care (01) ==
PROVIDERS: Emergency Provider Student in an Organized Health Care Education/Training Program; PCP Nurse Practitioner Family
DX: R10.32 Left lower quadrant pain (principal); Z93.3 Colostomy status
CPT/HCPCS: 36415; 80053; 96374; 99284; 74176; 83605; 85025

== ENCOUNTER 2021-04-16 13:30 | Emergency (ER) | payer BC, SELFPAY ==
[2021-04-16] VITALS (15 sets, daily range): BP systolic 91–155; BP diastolic 55–66; PULSE 53–64; RESP 18; TEMP 36.7; O2SAT 98–100
[2021-04-16 14:17] LABS: Leukocyte Esterase Negative (Negative); pH 5.5 (5-8)
[2021-04-16 14:22] LABS: Clarity Cloudy (Clear)
[2021-04-16 14:23] LABS: Glucose Negative (Negative); Ketones Negative (Negative); Nitrite Negative (Negative)
[2021-04-16 14:24] LABS: Bilirubin Negative (Negative); Blood Large (Negative); Specific Gravity >= 1.030 (1.005-1.025); Urobilinogen 0.2 EU/dL (Up TO 0.2)
[2021-04-16 14:25] LABS: C & S Indicated? Yes; RBC >50 HPF (0-2)
[2021-04-16 14:29] LABS: Albumin 3.8 g/dL (3.4-5.0); Alkaline Phosphatase 74 U/L (46-116); Anion Gap 9.7 mmol/L (3-11); BUN 42 mg/dL (7-18); Bilirubin, Total 0.9 mg/dL (0.2-1.0); CO2 24.3 mmol/L (21.0-32.0); CREATININE 2.8 mg/dL (0.70-1.30); Calcium 8.1 mg/dL (8.5-10.1); Chloride 110 mmol/L (98-107); Estimated GFR 22.26 (mL/min/1.73m2); Glucose 116 mg/dL (74-106); Potassium 4.1 mmol/L (3.5-5.1); Sodium 144 mmol/L (136-145); Total Protein 7.5 g/dL (6.4-8.2)
[2021-04-16 14:30] LABS: ALT 16 U/L (16-63); AST 20 U/L (15-37)
[2021-04-16 14:33] LABS: Abs Immature Grans 0.03 10^3/uL (0.0-0.06); Absolute Basophil Count 0.08 10^3/uL (0.0-0.2); Absolute Eosinophil Count 0.79 10^3/uL (0.0-0.7); Absolute Monocyte Count 0.72 10^3/uL (0.1-0.8); Absolute Neutrophil Count 7.17 10^3/uL (1.2-6.7); Basophils % 0.8; Eosinophils % 7.9; HCT 36.4 % (40.0-50.0); HGB 11.3 g/dL (13.5-17.5); Immature Grans % 0.3; MCH 29.8 pg (27.0-33.0); MPV 10.5 fL (8.0-11.0); Monocytes % 7.2; Neutrophils % 71.8; Nucleated RBC 0 %; Platelet Count 236 10^3/uL (130-400); RBC 3.79 10^6/uL (4.36-5.78); RDW 12.8 % (11.8-14.1); RDW-SD 45.5 fL; WBC 9.99 10^3/uL (4.4-10.8)
--- NOTE | 2021-04-16 14:44 | W.ED.GENAD ---
Discharge Plan Disposition Patient Disposition: HOME Condition: Stable Discharge Details Clinical Impression: Hematuria Primary Care Provider: Shital Patel ED Provider: Stephanie Wiseman Home Meds and New Rx's Prescriptions: New cephalexin 500 mg capsule 500 mg PO QID 7 Days Qty: 28 RF: 0 Continued folic acid 1 mg tablet 1 mg PO DAILY RF: 0 loperamide 2 mg capsule 2 mg PO QHS RF: 0 metoprolol succinate 50 mg tablet extended release 24 hr 50 mg PO DAILY RF: 0 Eliquis 5 mg tablet 5 mg PO DAILY RF: 0 melatonin 3 mg Capsule 3 mg PO HS RF: 0 Discharge Instructions Instructions: Urinary Tract Infection in Men (ED), Hematuria (ED) Additional Instructions: Drink plenty of fluids and get plenty of rest. A prescription for an antibiotic has been sent electronically to your pharmacy. Take this as directed until finished. Stop taking your Eliquis until your blood in your urine resolves. Call Dr. Phan's office tomorrow to schedule a follow-up appointment for reevaluation with plan for outpatient cystoscopy for further evaluation of the blood in your urine. Call your primary care doctor's office tomorrow to schedule a follow-up appointment for reevaluation and to discuss whether you need to continue taking your Eliquis skilled nursing for your atrial fibrillation. Return immediately to the emergency department if you develop any worsening or new concerning symptoms. 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 fib on Eliquis, hypertension presents for hematuria today. Denies any symptoms of dysuria, frequency, urgency, pain, fever or vomiting. He appears comfortable and nontoxic. Blood pressure initially hypotensive but now within normal limits. Afebrile. Abdomen soft and nontender. Normal exam. Review of records noted that patient has had a history of CKD with an admission for FREDDIE and UTI in August 2020 and FREDDIE and C. difficile in November 2020. Urine culture from August 2020 noted Klebsiella. Labs reviewed. Urinalysis notes large blood complicating review of WBCs. Urine culture sent. Normal white blood cell count. Hemoglobin 11.3. Creatinine 2.8 which is decreased compared to recent baseline. As he has no pain and appears comfortable, presentation not consistent with kidney stone. As he had a scan here last month with no noted renal masses or obstruction, do not see indication for additional imaging. Case discussed with Dr. Phan who agrees with no recommendations for additional imaging at this time. Recommends treatment with Keflex, stopping his Eliquis until bleeding resolves with plan for follow-up with Dr. Phan outpatient for cystoscopy and retrograde urethrogram. Patient placed on Dr. Phan's list for follow-up. Usual and customary return precautions given prior to discharge. Medical Records Medical records reviewed: Yes I reviewed the patient's medical records. Lab Data Lab results reviewed: Yes I reviewed the patient's lab results. Labs: 04/16/21 13:50 Urine - Reflex from Ua Urine Culture - Pending Laboratory Tests Range/Units 04/16/21 04/16/21 04/16/21 13:50 14:05 14:05 WBC (4.4-10.8) 10^3/uL 9.99 RBC (4.36-5.78) 10^6/uL 3.79 L Hgb (13.5-17.5) g/dL 11.3 L Hct (40.0-50.0) % 36.4 L MCV (80-95) fL 96.0 H MCH (27.0-33.0) pg 29.8 MCHC (32.0-36.0) % 31.0 L RDW (11.8-14.1) % 12.8 Plt Count (130-400) 10^3/uL 236 MPV (8.0-11.0) fL 10.5 Immature Gran % 0.3 Neutrophils % 71.8 Lymphocytes % 12.0 Monocytes % 7.2 Eosinophils % 7.9 Basophils % 0.8 Nucleated RBC % % 0 Absolute Neutrophils (1.2-6.7) 10^3/uL 7.17 H Absolute Lymphocytes (1.2-3.4) 10^3/uL 1.20 Absolute Monocytes (0.1-0.8) 10^3/uL 0.72 Absolute Eosinophils (0.0-0.7) 10^3/uL 0.79 H Absolute Basophils (0.0-0.2) 10^3/uL 0.08 Sodium (136-145) mmol/L 144 Potassium (3.5-5.1) mmol/L 4.1 Chloride (98-107) mmol/L 110 H Carbon Dioxide (21.0-32.0) mmol/L 24.3 Anion Gap (3-11) mmol/L 9.7 BUN (7-18) mg/dL 42 H Creatinine (0.70-1.30) mg/dL 2.8 H Estimated GFR/1.73 m2 (mL/min/1.73m2) 22.26 Glucose (74-106) mg/dL 116 H Calcium (8.5-10.1) mg/dL 8.1 L Total Bilirubin (0.2-1.0) mg/dL 0.9 AST (15-37) U/L 20 ALT (16-63) U/L 16 Alkaline Phosphatase (46-116) U/L 74 Total Protein (6.4-8.2) g/dL 7.5 Albumin (3.4-5.0) g/dL 3.8 Urine Color (Yellow) Red Urine Clarity (Clear) Cloudy Urine pH (5-8) 5.5 Ur Specific C[place]ield (1.005-1.025) >= 1.030 H Urine Protein (Negative) mg/dL 100 H Urine Ketones (Negative) mg/dL Negative Urine Blood (Negative) Large H Urine Nitrite (Negative) Negative Urine Bilirubin (Negative) Negative Urine Urobilinogen (Up TO 0.2) EU/dL 0.2 Ur Leukocyte Esterase (Negative) Negative Urine RBC (0-2) HPF >50 H Urine WBC Not Applicable Ur Epithelial Cells Not Applicable Urine Crystals Not Applicable Urine Bacteria Not Applicable Urine Mucus Not Applicable Ur Culture Indicated? Yes Urine Glucose (Negative) mg/dL Negative HPI General Mode of arrival: ambulatory. Date/Time Provider Initiated Documentation: 04/16/21 13:51. Limitations to Documentation: no limitations. Information obtained by: patient. 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 fib on Eliquis, hypertension presents for hematuria since this morning. He states he woke up this morning and noted his urine was dark. He states throughout the day this progressed to pinkish colored urine and then dark red. He denies any symptoms of fever, nausea, vomiting, abdominal pain, flank or back pain, dysuria, frequency or urgency. He denies any penile discharge or genital lesions. He denies any known history of UTIs. Records note in August 2020 noted he had a urine culture which grew Klebsiella. He does not recall history of UTIs. Patient states he had an ileostomy within the last year and had an episode of A. fib during that time and was started on Eliquis. He states he is not sure if he needs to stay on Eliquis but is planning to talk to his PCP regarding this. Related Data Home Medications Medication Instructions Recorded Confirmed Eliquis 5 mg PO DAILY 08/06/20 04/16/21 melatonin 3 mg PO HS 08/06/20 04/16/21 folic acid 1 mg PO DAILY 11/06/20 04/16/21 loperamide 2 mg PO QHS 03/02/21 04/16/21 metoprolol succinate 50 mg PO DAILY 03/02/21 04/16/21 cephalexin 500 mg PO QID 7 Days #28 cap 04/16/21 Previous Rx's Medication Instructions Recorded cephalexin 500 mg PO QID 7 Days #28 cap 04/16/21 Allergies Allergy/AdvReac Type Severity Reaction Status Date / Time Sulfa (Sulfonamide Allergy Mild tight Unverified 04/16/21 13:45 Antibiotics) feeling in scrotum hydrochlorothiazide AdvReac Mild Verified 04/16/21 13:45 lisinopril AdvReac Mild cough Verified 04/16/21 13:45 General Stated Complaint: Urinary PAMELA: 3 Review of Systems All systems reviewed & are unremarkable except as noted in HPI and below Constitutional Constitutional: Reports as per HPI, Denies chills and Denies fever(s) Eyes Eyes: Denies blurry vision ENT Ears, Nose, Mouth, and Throat: Denies dizziness, Denies sore throat and Denies throat swelling Cardiovascular Cardiovascular: Denies chest pain and Denies dyspnea Respiratory Respiratory: Denies cough and Denies dyspnea Gastrointestinal Gastrointestinal: Denies abdominal pain, Denies diarrhea and Denies vomiting Genitourinary Genitourinary: Reports hematuria and Denies dysuria Musculoskeletal Musculoskeletal: Denies back pain and Denies numbness Integumentary/Breasts Skin/Breast: Denies lesions and Denies rash Neurologic Neurologic: Denies dizziness, Denies localized weakness and Denies numbness Allergic/Immunologic Allergic/Immunologic: Denies throat swelling [facility] Medical History BMI 40.0-44.9, adult Carpal tunnel syndrome Patient denies having. 06/23/20-I didn't even know it was diagnosed, not denying that I have it, just nobody told me I did Elevated transaminase level Essential hypertension History of smoking Hx of hemorrhoids Hyperlipidemia Palliative care patient Paroxysmal A-fib Prediabetes Rhinitis Sleep disturbance Tubular adenoma (~2012) Weakness Weight loss Surgical History H/O foot surgery heel surgery Left History of creation of ostomy History of hemicolectomy Hx of colectomy (~06/24/20) Hx of colonoscopy Hx of hand surgery LIF Hx of tonsillectomy Family History Mother Heart disease Alcohol abuse Social History Smoking/Tobacco Use Status: Former Tobacco Use Smoking risk assessment performed?: Yes Alcohol Intake: current Alcohol Intake frequency: 0-2 drinks per day Alcohol type: beer and hard liquor Drug use: Never Substance use type: does not use Current gender identity: male Do you feel safe at home: Yes Do you feel safe in your relationship?: Yes Additional Social history: 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 Grew up in [facility]. Lives with Fariha in [facility]. Exam Const General: cooperative and no acute distress HENMT Head: normal to inspection Face and sinus: normal facial exam Eyes General: appearance normal, both eyes and all related structures EOM: EOM intact bilaterally Neck Neck: normal visual inspection and No submandibular swelling Lymphatic: no lymphadenopathy noted Chest Chest: normal inspection of the chest and no tenderness Resp Effort & Inspection: normal respiratory effort and able to speak in complete sentences Auscultation: clear to auscultation bilaterally Cardio Rate: regular rate Rhythm: regular rhythm GI Inspection: normal to inspection Palpation: soft, not firm, not rigid and nontender Auscultation: normal bowel sounds Other: Ileostomy bag right lower quadrant. Brown stool in bag Male General Exam: Yes normal external exam Penis: normal penis Scrotum: scrotum normal Skin General skin exam: no rashes or lesions noted Neuro General: patient alert, patient awake and patient oriented x3 Cognition: normal cognition Speech: speech normal Motor: muscle tone normal throughout Sensory Exam: no sensory deficits noted Extrem General: normal to inspection, full ROM, capillary refill normal, no calf tenderness bilaterally and no edema Psych Appearance: grossly normal Mental Status: mental status grossly normal Speech and Movement: speech and movement normal Affect: normal affect Course Vital Signs Vital signs: Vital Signs Temperature 98.1 F 04/16/21 13:43 Pulse 53 L 04/16/21 13:43 Respiratory Rate 18 04/16/21 13:43 Blood Pressure 91/66 L 04/16/21 13:43 Pulse Oximetry 100 04/16/21 13:43 Temperature 98.1 F 04/16/21 13:43 Temperature Source Temporal Artery Scan 04/16/21 13:43 Pulse 53 L 04/16/21 13:43 Respiratory Rate 18 04/16/21 13:43 Respiratory Effort Non-Labored 04/16/21 13:45 Blood Pressure 91/66 L 04/16/21 13:43 Blood Pressure Position Sitting 04/16/21 13:43 Pulse Oximetry 100 04/16/21 13:43 Oxygen Delivery Method Room Air 04/16/21 13:43 Oxygen Flow Rate 0 04/16/21 13:43 Pain Level 0 04/16/21 13:45 Lab/Test Results Lab/Test Results: 04/16/21 13:50 Urine - Reflex from Ua Urine Culture - Pending Laboratory Tests Range/Units 04/16/21 04/16/21 04/16/21 13:50 14:05 14:05 WBC (4.4-10.8) 10^3/uL 9.99 RBC (4.36-5.78) 10^6/uL 3.79 L Hgb (13.5-17.5) g/dL 11.3 L Hct (40.0-50.0) % 36.4 L MCV (80-95) fL 96.0 H MCH (27.0-33.0) pg 29.8 MCHC (32.0-36.0) % 31.0 L RDW (11.8-14.1) % 12.8 Plt Count (130-400) 10^3/uL 236 MPV (8.0-11.0) fL 10.5 Immature Gran % 0.3 Neutrophils % 71.8 Lymphocytes % 12.0 Monocytes % 7.2 Eosinophils % 7.9 Basophils % 0.8 Nucleated RBC % % 0 Absolute Neutrophils (1.2-6.7) 10^3/uL 7.17 H Absolute Lymphocytes (1.2-3.4) 10^3/uL 1.20 Absolute Monocytes (0.1-0.8) 10^3/uL 0.72 Absolute Eosinophils (0.0-0.7) 10^3/uL 0.79 H Absolute Basophils (0.0-0.2) 10^3/uL 0.08 Sodium (136-145) mmol/L 144 Potassium (3.5-5.1) mmol/L 4.1 Chloride (98-107) mmol/L 110 H Carbon Dioxide (21.0-32.0) mmol/L 24.3 Anion Gap (3-11) mmol/L 9.7 BUN (7-18) mg/dL 42 H Creatinine (0.70-1.30) mg/dL 2.8 H Estimated GFR/1.73 m2 (mL/min/1.73m2) 22.26 Glucose (74-106) mg/dL 116 H Calcium (8.5-10.1) mg/dL 8.1 L Total Bilirubin (0.2-1.0) mg/dL 0.9 AST (15-37) U/L 20 ALT (16-63) U/L 16 Alkaline Phosphatase (46-116) U/L 74 Total Protein (6.4-8.2) g/dL 7.5 Albumin (3.4-5.0) g/dL 3.8 Urine Color (Yellow) Red Urine Clarity (Clear) Cloudy Urine pH (5-8) 5.5 Ur Specific C[place]ield (1.005-1.025) >= 1.030 H Urine Protein (Negative) mg/dL 100 H Urine Ketones (Negative) mg/dL Negative Urine Blood (Negative) Large H Urine Nitrite (Negative) Negative Urine Bilirubin (Negative) Negative Urine Urobilinogen (Up TO 0.2) EU/dL 0.2 Ur Leukocyte Esterase (Negative) Negative Urine RBC (0-2) HPF >50 H Urine WBC Not Applicable Ur Epithelial Cells Not Applicable Urine Crystals Not Applicable Urine Bacteria Not Applicable Urine Mucus Not Applicable Ur Culture Indicated? Yes Urine Glucose (Negative) mg/dL Negative PAWSS Have you Been Recently Intoxicated or Drunk Within the Last 30 days?: No Have you Ever Experienced Previous Episodes of Alcohol Withdrawal?: No Have you ever Experienced Withdrawal Seizures?: No Have you ever Experienced Delirium Tremens(DT)s?: No Have you ever undergone Alcohol Rehabilitation Treatment (i.e, inpt ot outpatient treatment programs)?: No Have you ever Experienced Blackouts?: No Have you ever Combined Alcohol with other Downers within the last 90 days?: No Have you ever Combined Alcohol with any other Substance of Abuse during the last 90 days?: No Positive Blood Alcohol level on Presentation? [PCS.BAL]: No Evidence of Increased Autonomic Activity (i.e. HR>120, tremor, sweating, agitation, nausea)?: No Result: 0
[2021-04-16] MEDS: Cephalexin 500 MG CAP PO (15:51)
== END 2021-04-16 16:32 | disposition home or self-care (01) ==
PROVIDERS: Emergency Provider Physician Assistant; PCP Nurse Practitioner Family
DX: R31.9 Hematuria, unspecified (principal); I12.0 Hypertensive chronic kidney disease with stage 5 chronic kidney disease or end stage renal disease; N18.9 Chronic kidney disease, unspecified; Z79.01 Long term (current) use of anticoagulants; Z87.440 Personal history of urinary (tract) infections
CPT/HCPCS: 36415; 80053; 99283; 81003; 81015; 85025; 87086

== ENCOUNTER 2021-09-03 17:29 | Outpatient (REF) | payer BC, SELFPAY ==
[2021-09-05 12:40] LABS: COVID-19 RT-PCR UVMMC Result Negative (Negative)
== END 2021-09-03 17:30 | disposition home or self-care (01) ==
LOC: NCHCN 17:29
PROVIDERS: PCP Nurse Practitioner Family; Visit Provider Physician Assistant Medical
DX: Z20.822 Contact with and (suspected) exposure to COVID-19 (principal); J06.9 Acute upper respiratory infection, unspecified
CPT/HCPCS: U0003

== ENCOUNTER 2021-09-24 11:21 | Outpatient (REF) | payer BC, SELFPAY ==
[2021-09-24 15:49] LABS: HCT 34.6 % (40.0-50.0); HGB 11.1 g/dL (13.5-17.5); MCH 30.7 pg (27.0-33.0); MCHC 32.1 % (32.0-36.0); MCV 95.8 fL (80-95); MPV 10.4 fL (8.0-11.0); Platelet Count 230 10^3/uL (130-400); RBC 3.61 10^6/uL (4.36-5.78); RDW 13.2 % (11.8-14.1); RDW-SD 46.9 fL; WBC 8.52 10^3/uL (4.4-10.8)
[2021-09-24 16:17] LABS: Hemoglobin A1C 5.4 % (<5.7)
[2021-09-24 16:36] LABS: Iron 171 ug/dL (65-175); Total Iron Binding Capacity 323 ug/dL (250-450); Transferrin Sat 53 % (20-55)
[2021-09-24 17:22] LABS: BUN 52 mg/dL (7-18); CREATININE 2.7 mg/dL (0.70-1.30); Calcium 8.4 mg/dL (8.5-10.1); Chloride 108 mmol/L (98-107); Estimated GFR 23.15 (mL/min/1.73m2); Ferritin 938 ng/mL (26-388); Glucose 121 mg/dL (74-106); Potassium 4.3 mmol/L (3.5-5.1); Sodium 141 mmol/L (136-145); TSH (W/Ref FT4) 0.59 uIU/mL (0.36-3.74); Vitamin B12 130 pg/mL (193-986)
[2021-09-24 17:24] LABS: Folate > 20.0 ng/mL (8.6-20.0)
[2021-09-24 22:54] LABS: Vitamin D 25 Total 5.7 ng/mL (30-100)
== END 2021-09-24 11:22 | disposition home or self-care (01) ==
LOC: NCHCN 11:21
PROVIDERS: PCP Nurse Practitioner Family; Visit Provider Nurse Practitioner Family
DX: R53.83 Other fatigue (principal); N17.9 Acute kidney failure, unspecified; I10 Essential (primary) hypertension; R73.03 Prediabetes; Z86.2 Personal history of diseases of the blood and blood-forming organs and certain disorders involving the immune mechanism; B96.89 Other specified bacterial agents as the cause of diseases classified elsewhere
CPT/HCPCS: 80048; 82306; 85027; 82607; 82728; 82746; 83036; 83540; 83550; 84443

== ENCOUNTER 2022-03-23 16:16 | Outpatient (REF) | payer BC, SELFPAY ==
[2022-03-23 15:02] LABS: HCT 33.5 % (40.0-50.0); HGB 10.6 g/dL (13.5-17.5); MCHC 31.6 % (32.0-36.0); MCV 98 fL (80-95); MPV 10.4 fL (8.0-11.0); Platelet Count 275 10^3/uL (130-400); RBC 3.42 10^6/uL (4.36-5.78); RDW 13.4 % (11.8-14.1); RDW-SD 48.9 fL; WBC 8.74 10^3/uL (4.4-10.8)
[2022-03-23 16:12] LABS: BUN 56 mg/dL (7-18); Calcium 8.5 mg/dL (8.5-10.1); Chloride 107 mmol/L (98-107); Estimated GFR 14.87 (mL/min/1.73m2); Glucose 88 mg/dL (74-106); Potassium 4.2 mmol/L (3.5-5.1); Sodium 141 mmol/L (136-145); Vitamin B12 180 pg/mL (193-986)
[2022-03-25 05:11] LABS: Vitamin D 25 Total 18.5 ng/mL (30-100)
== END 2022-03-23 16:17 | disposition home or self-care (01) ==
LOC: NCHCN 16:16
PROVIDERS: PCP Nurse Practitioner Family; Visit Provider Nurse Practitioner Family
DX: D52.9 Folate deficiency anemia, unspecified (principal); E55.9 Vitamin D deficiency, unspecified; N18.4 Chronic kidney disease, stage 4 (severe); C18.2 Malignant neoplasm of ascending colon
CPT/HCPCS: 80048; 82306; 85027; 82607

== ENCOUNTER 2022-03-25 13:11 | Outpatient (REF) | payer BC, SELFPAY ==
[2022-03-25 16:24] LABS: Bilirubin Negative (Negative); Blood Negative (Negative); Clarity Sl Cloudy (Clear); Glucose Negative (Negative); Ketones Negative (Negative); Leukocyte Esterase Trace (Negative); Nitrite Negative (Negative); Specific Gravity 1.025 (1.005-1.025); Urobilinogen 0.2 EU/dL (Up TO 0.2); pH 5.5 (5-8)
[2022-03-25 16:32] LABS: Bacteria Few HPF (Negative); C & S Indicated? Yes; Casts Negative LPF (Negative); Crystals Negative HPF (Negative); Epithelial Cells Few HPF (Negative); Mucus Negative (Negative); RBC 0-2 HPF (0-2)
== END 2022-03-25 13:12 | disposition home or self-care (01) ==
LOC: NCHCN 13:11
PROVIDERS: PCP Nurse Practitioner Family; Visit Provider Nurse Practitioner Family
DX: N18.4 Chronic kidney disease, stage 4 (severe) (principal)
CPT/HCPCS: 81003; 81015; 87086

== ENCOUNTER 2022-09-01 09:15 | Emergency (ER) | payer BC, SELFPAY ==
[2022-09-01 09:33] VITALS: BP 168/75; PULSE 69; RESP 18; O2SAT 99
[2022-09-01 09:34] VITALS: TEMP 37
--- NOTE | 2022-09-01 10:01 | DI.CT_ITS ---
Exam(s) CT ABDOMEN PELVIS WO EXAM: CT ABDOMEN PELVIS WO CLINICAL HISTORY: Abdominal pain with decreased urine output. TECHNIQUE: Imaging Protocol: Axial computed tomography images with coronal and sagittal reformatted images were created and reviewed. COMPARISON: CT CT CHEST/ABD/PEL W from 05/29/2020 US US ABDOMEN RENAL from 11/07/[address] ABDOMEN PELVIS WO from 03/09/2021 FINDINGS: ABDOMEN: Lung Bases: Normal where visualized. Liver: Normal density. No measurable mass. Gallbladder and biliary tract: There is layering debris seen in the gallbladder which may represent s tones or sludge. No biliary ductal dilatation is present. Pancreas: Normal density, no abnormal calcifications or inflammatory process. Spleen: Normal. Kidneys: Normal size, contour and axis.There are 2 stones seen in the mid left ureter causing moderat e hydronephrosis. There also several stones in a row at the right UVJ causing [id number] right hydronephrosis. There is bilateral nephrolithiasis. There is a cyst seen on the right kidney. Thi s was identified as a cyst on ultrasound from 11/07/2020. Adrenal glands: No mass is seen. Lymph nodes: Within normal limits. Abdominal Aorta: Abdominal portion non-dilated. There is atherosclerosis present. PELVIS: Bladder:The urinary bladder is incompletely distended limiting evaluation. There is thickening of th e wall but this may be due to incomplete distension. Bowel: There is diverticulosis of the colon but no evidence of acute diverticulitis. The patient is status post hemicolectomy. There is a right lower quadrant ostomy again noted. There is no evidence of bowel obstruction or bowel wall thickening. Peritoneal cavity: No ascites, collection or mesenteric inflammatory response. No free air. Reproductive organs: The prostate gland is enlarged. Bones: Within normal limits. Soft Tissues: Within normal limits. IMPRESSION: 1. Several stones seen in a row in the distal right ureter at the UVJ causing [id number] hydron ephrosis. 2. Two stones in the mid left ureter causing moderate hydronephrosis. 3. Bilateral nephrolithiasis. 4. Incidental findings as described above. 5. Findings were discussed with Federico Salazar at 10:42 a.m. on 09/01/2022. RADIATION DOSE DELIVERED: 970.59mGy.cm Total DLP DATA REPOSITORY: All CT scans at this facility are submitted to the National Radiology Data Registry (NRDR) Dose Index Registry (DIR) with the [employer] ([employer]). RADIATION OPTIMIZATION: All CT scans at this facility use at least one of these dose optimization te chniques: automated exposure control; mA and/or kV adjustment per patient size (includes targeted exa ms where dose is matched to clinical indication); or iterative reconstruction.
[2022-09-01 10:21] LABS: Abs Immature Grans 0.03 10^3/uL (0.0-0.06); Absolute Basophil Count 0.06 10^3/uL (0.0-0.2); Absolute Eosinophil Count 0.69 10^3/uL (0.0-0.7); Absolute Lymphocyte Count 1.15 10^3/uL (1.2-3.4); Absolute Monocyte Count 1.11 10^3/uL (0.1-0.8); Absolute Neutrophil Count 7.18 10^3/uL (1.2-6.7); Basophils % 0.6; Eosinophils % 6.8; HCT 32.9 % (40.0-50.0); HGB 10.8 g/dL (13.5-17.5); Immature Grans % 0.3; Lymphocytes % 11.3; MCH 31.5 pg (27.0-33.0); MCHC 32.8 % (32.0-36.0); MCV 96 fL (80-95); MPV 10.2 fL (8.0-11.0); Monocytes % 10.9; Neutrophils % 70.1; Platelet Count 204 10^3/uL (130-400); RBC 3.43 10^6/uL (4.36-5.78); RDW 13.1 % (11.8-14.1); RDW-SD 46.4 fL; WBC 10.22 10^3/uL (4.4-10.8)
--- NOTE | 2022-09-01 10:22 | ED.GENADUL_ITS ---
Discharge Plan Disposition Patient Disposition: Transfer-Acute Inpatient Care Specific Acute Inpt Facility: [facility] Discharge Details Clinical Impression: Hydronephrosis with urinary obstruction due to ureteral calculus, Acute on chronic renal failure, Acute urinary obstruction Primary Care Provider: Shital Patel ED Provider: Federico Salazar Home Meds and New Rx's Prescriptions: No Action folic acid 1 mg tablet 1 mg PO DAILY Patient Comments: not taking loperamide 2 mg capsule 2 mg PO QHS Patient Comments: not taking metoprolol succinate 50 mg tablet extended release 24 hr 50 mg PO DAILY Patient Comments: TAKE ONE TABLET BY MOUTH EVERY DAY sodium bicarbonate 650 mg tablet 650 mg PO BID Patient Comments: TAKE ONE TABLET BY MOUTH TWICE A DAY ergocalciferol (vitamin D2) 1,250 mcg (50,000 unit) capsule 1,250 mcg PO DAILY Eliquis 5 mg tablet 5 mg PO DAILY Patient Comments: not taking melatonin 3 mg Capsule 3 mg PO HS Discharge Data Discharge Date/Time-TO BE ENTERED AT DEPARTURE: 09/01/22 13:18 Medical Decision Making Patient presenting to the emergency department for chief complaint of decreased urine output. Patient states a couple days ago he had some mild abdominal pain which he contributed to slight backing up of his ileostomy. And his ileostomy started working again and he felt better. Patient states some dribbling urination yesterday but has not had much urine output since the initial pain. Patient does have history of complicated hemicolectomy for a cancerous polyp with anastamotic leak, additional surgery and ostomy placement, chronic kidney disease, A. fib on Eliquis, hypertension. Patient does state recently he did have some imaging performed and had bilateral kidney stones. Physical exam shows mild mid right abdomen tenderness just lateral to the ileostomy otherwise no CVA tenderness, no tenderness over the bladder, otherwise unremarkable exam. Ileostomy appears normal and in place. We will plan on performing labs to check patient's chronic kidney disease and will perform advanced imaging to evaluate for potential kidney stones, severe urinary retention, or other abdominal pathology causing decreased urine output. staff certified nurse midwife informed me that bladder scan stated approximately 250 to 300 mL in bladder. Review of patient's labs show a chronic but stable anemia otherwise no significant leukocytosis noted. Pending CMP did receive CT imaging data and patient has bilateral urolithiasis with hydronephrosis. We will plan on contacting urology pending additional results. Reviewed additional results and patient has significant abnormalities with a anion gap of 16.9, BUN of 94, creatinine of 12.1, GFR of 3.91. Glucose is elevated at 121, calcium of 7.7, magnesium of 1.6 with decrease in AST ALT and albumin. Lipase within normal range. We will hold off on emergent repletion of electrolyte abnormalities until speaking with urology at tertiary care center. Spoke with Dr. Jones of urology and also Dr. Huber of the emergency department services who accepted patient for ED to ED transfer for evaluation need for stents due to acute on chronic renal failure secondary to bilateral urolithiasis with obstruction. Patient is in agreement with plan of care. Medical Records Medical records reviewed: Yes I reviewed the patient's medical records. Medical records narrative: Reviewed last emergency department visit for hematuria Imaging Data Radiologic Study: Imaging: CT Scan Radiologist's impression: Exam(s) CT ABDOMEN PELVIS WO EXAM: CT ABDOMEN PELVIS WO CLINICAL HISTORY: Abdominal pain with decreased urine output. TECHNIQUE: Imaging Protocol: Axial computed tomography images with coronal and sagittal reformatted images were created and reviewed. COMPARISON: CT CT CHEST/ABD/PEL W from 05/29/2020 US US ABDOMEN RENAL from 11/07/[address] ABDOMEN PELVIS WO from 03/09/2021 FINDINGS: ABDOMEN: Lung Bases: Normal where visualized. Liver: Normal density. No measurable mass. Gallbladder and biliary tract: There is layering debris seen in the gallbladder which may represent stones or sludge. No biliary ductal dilatation is present. Pancreas: Normal density, no abnormal calcifications or inflammatory process. Spleen: Normal. Kidneys: Normal size, contour and axis.There are 2 stones seen in the mid left ureter causing moderate hydronephrosis. There also several stones in a row at the right UVJ causing [id number] right hydronephrosis. There is bilateral nephrolithiasis. There is a cyst seen on the right kidney. This was identified as a cyst on ultrasound from 11/07/2020. Adrenal glands: No mass is seen. Lymph nodes: Within normal limits. Abdominal Aorta: Abdominal portion non-dilated. There is atherosclerosis present. PELVIS: Bladder:The urinary bladder is incompletely distended limiting evaluation. There is thickening of the wall but this may be due to incomplete distension. Bowel: There is diverticulosis of the colon but no evidence of acute diverticulitis. The patient is status post hemicolectomy. There is a right lower quadrant ostomy again noted. There is no evidence of bowel obstruction or bowel wall thickening. Peritoneal cavity: No ascites, collection or mesenteric inflammatory response. No free air. Reproductive organs: The prostate gland is enlarged. Bones: Within normal limits. Soft Tissues: Within normal limits. IMPRESSION: 1. Several stones seen in a row in the distal right ureter at the UVJ causing [id number] hydronephrosis. 2. Two stones in the mid left ureter causing moderate hydronephrosis. 3. Bilateral nephrolithiasis. 4. Incidental findings as described above. Lab Data Lab results reviewed: Yes I reviewed the patient's lab results. HPI General Mode of arrival: ambulatory . Date/Time Provider Initiated Documentation: 09/01/22 09:17 . Limitations to Documentation: no limitations . Information obtained by: patient, RN notes reviewed and old records reviewed . History of Present Illness 77 year old M presents to the emergency department with the chief complaint of Abdominal pain, decreased urine output, described as mild, with intensity rated at 2. Quality is described as aching, and is localized to the abdomen. Patient reports no radiation. Patient started experiencing this day(s) (3) and it has been intermittent. No relieving factors improve symptom(s), No exacerbating factors reported . Patient notes no other symptoms.. Patient did receive the following treatments prior to arrival, none Related Data Home Medications Medication Instructions Recorded Confirmed apixaban 5 mg tablet (Eliquis) 5 mg PO DAILY 08/06/20 04/16/21 melatonin 3 mg capsule 3 mg PO HS 08/06/20 09/01/22 folic acid 1 mg tablet 1 mg PO DAILY 11/06/20 04/16/21 loperamide 2 mg capsule 2 mg PO QHS 03/02/21 04/16/21 metoprolol succinate 50 mg 50 mg PO DAILY 03/02/21 09/01/22 tablet,extended release 24 hr ergocalciferol (vitamin D2) 1,250 1,250 mcg PO DAILY 09/01/22 09/01/22 mcg (50,000 unit) capsule sodium bicarbonate 650 mg tablet 650 mg PO BID 09/01/22 09/01/22 Allergies Allergy/AdvReac Type Severity Reaction Status Date / Time Sulfa (Sulfonamide Allergy Mild tight Unverified 09/01/22 09:35 Antibiotics) feeling in scrotum hydrochlorothiazide AdvReac Mild Verified 09/01/22 09:35 lisinopril AdvReac Mild cough Verified 09/01/22 09:35 General Stated Complaint: Urinary PAMELA: 3 Review of Systems Constitutional Constitutional: Denies chills, Denies fever(s) and Reports poor appetite Cardiovascular Cardiovascular: Denies chest pain and Denies dyspnea Respiratory Respiratory: Denies cough and Denies dyspnea Gastrointestinal Gastrointestinal: Reports as per HPI, Reports abdominal pain, Denies melena, Denies change in bowel habits, Denies constipation, Denies diarrhea, Denies nausea and Denies vomiting Genitourinary Genitourinary: Reports as per HPI, Denies hematuria, Reports oliguria, Denies difficulty urinating and Denies urinary hesitancy Integumentary/Breasts Skin/Breast: Denies rash PFSH All Active Problems (Updated 09/01/22 @ 13:11 by Federico Salazar, [employer]) Hydronephrosis with urinary obstruction due to ureteral calculus (Acute) Acute on chronic renal failure (Acute) Acute urinary obstruction (Acute) Ileostomy dysfunction (Acute) Abdominal pain (Acute) Hematuria (Acute) Clostridioides difficile infection (Acute) Elevated transaminase level (Acute) Paroxysmal A-fib (Chronic) Open abdominal wall wound (Acute) Weight loss (Acute) Weakness (Acute) History of creation of ostomy (Acute) History of hemicolectomy (Acute) B12 deficiency (Chronic) Discharge planning issues (Acute) DVT prophylaxis (Acute) Anemia of chronic disease (Chronic) UTI (urinary tract infection) (Acute) Enterocutaneous fistula (Acute) Azotemia (Acute) Hyperlipidemia (Acute) Renal cyst, right (Acute) Visit for suture removal (Acute) Left knee DJD (Chronic) History of >5 Monovisc injections ([facility]) Colon cancer (Chronic) History of smoking (Acute) BMI 40.0-44.9, adult (Acute) Medical History Carpal tunnel syndrome Patient denies having. 06/23/20-I didn't even know it was diagnosed, not denying that I have it, just nobody told me I did Hx of hemorrhoids Palliative care patient Prediabetes Rhinitis Sleep disturbance Tubular adenoma (~2012) Surgical History H/O foot surgery heel surgery Left Hx of colectomy (~06/24/20) Hx of colonoscopy Hx of hand surgery LIF Hx of tonsillectomy Family History Mother Heart disease Alcohol abuse Social History Smoking/Tobacco Use Status: Former Tobacco Use Smoking risk assessment performed?: Yes Alcohol Intake: current Alcohol Intake frequency: 0-2 drinks per day Alcohol type: beer and hard liquor Drug use: Never Substance use type: does not use Current gender identity: male Do you feel safe at home: Yes Do you feel safe in your relationship?: Yes Additional Social history: 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 Grew up in [place] [place]. Lives with Fariha in [facility]. Exam Const General: cooperative Orientation: alert, awake and oriented x3 Resp Effort & Inspection: normal respiratory effort and able to speak in complete sentences Auscultation: clear to auscultation bilaterally Cardio Rate: regular rate Rhythm: regular rhythm Heart Sounds: S1 normal and S2 normal GI Inspection: other (Ileostomy in place-normal appearance) Palpation: soft, not firm, no guarding, no masses, no pulsatile masses, not rigid, no splenomegaly and tender in the RUQ Auscultation: normal bowel sounds Back/Spine/Pelvis Back: no CVA tenderness Neuro General: patient alert, patient awake, patient oriented x3, gait normal and moves all extremities Course Vital Signs Vital signs: Vital Signs Pulse 69 09/01/22 09:33 Respiratory Rate 18 09/01/22 09:33 Blood Pressure 168/75 H 09/01/22 09:33 Pulse Oximetry 99 09/01/22 09:33 Temperature 37.0 C 09/01/22 09:34 Temperature Source Oral 09/01/22 09:34 Pulse 69 09/01/22 09:33 Respiratory Rate 18 09/01/22 09:33 Respiratory Effort Normal, Non-Labored 09/01/22 09:34 Blood Pressure 168/75 H 09/01/22 09:33 Pulse Oximetry 99 09/01/22 09:33 Oxygen Delivery Method Room Air 09/01/22 09:33 Oxygen Flow Rate 0 09/01/22 09:33 Lab/Test Results Lab/Test Results: Laboratory Tests Range/Units 09/01/22 09/01/22 10:10 10:10 WBC (4.4-10.8) 10^3/uL 10.22 RBC (4.36-5.78) 10^6/uL 3.43 L Hgb (13.5-17.5) g/dL 10.8 L Hct (40.0-50.0) % 32.9 L MCV (80-95) fL 96 H MCH (27.0-33.0) pg 31.5 MCHC (32.0-36.0) % 32.8 RDW (11.8-14.1) % 13.1 Plt Count (130-400) 10^3/uL 204 MPV (8.0-11.0) fL 10.2 Immature Gran % 0.3 Neutrophils % 70.1 Lymphocytes % 11.3 Monocytes % 10.9 Eosinophils % 6.8 Basophils % 0.6 Nucleated RBC % (0.0-0.3) % 0.0 Absolute Neutrophils (1.2-6.7) 10^3/uL 7.18 H Absolute Lymphocytes (1.2-3.4) 10^3/uL 1.15 L Absolute Monocytes (0.1-0.8) 10^3/uL 1.11 H Absolute Eosinophils (0.0-0.7) 10^3/uL 0.69 Absolute Basophils (0.0-0.2) 10^3/uL 0.06 Lipase Cancelled
[2022-09-01] MEDS: Normal Saline 500 ML IV (10:27)
[2022-09-01 11:42] LABS: ALT 10 U/L (16-63); AST 9 U/L (15-37); Albumin 3.2 g/dL (3.4-5.0); Alkaline Phosphatase 56 U/L (46-116); Anion Gap 16.9 mmol/L (3-11); Bilirubin, Total 0.7 mg/dL (0.2-1.0); CO2 18.1 mmol/L (21.0-32.0); Calcium 7.7 mg/dL (8.5-10.1); Chloride 104 mmol/L (98-107); Estimated GFR 3.91 (mL/min/1.73m2); Glucose 121 mg/dL (74-106); Lipase 41 U/L (16-77); Magnesium 1.6 mg/dL (1.8-2.4); Potassium 4.3 mmol/L (3.5-5.1); Sodium 139 mmol/L (136-145); Total Protein 7.2 g/dL (6.4-8.2)
[2022-09-01 11:43] LABS: BUN 94 mg/dL (7-18); CREATININE 12.1 mg/dL (0.70-1.30)
[2022-09-01 13:01] VITALS: BP 174/78; PULSE 65; RESP 18; TEMP 36.6; O2SAT 98
== END 2022-09-01 13:18 | disposition short-term general hospital (02) ==
PROVIDERS: Emergency Provider Nurse Practitioner Family; PCP Nurse Practitioner Family
DX: N13.2 Hydronephrosis with renal and ureteral calculous obstruction (principal); N17.9 Acute kidney failure, unspecified; I12.9 Hypertensive chronic kidney disease with stage 1 through stage 4 chronic kidney disease, or unspecified chronic kidney disease; N18.9 Chronic kidney disease, unspecified; I48.91 Unspecified atrial fibrillation; R73.9 Hyperglycemia, unspecified; D63.1 Anemia in chronic kidney disease; Z79.01 Long term (current) use of anticoagulants
CPT/HCPCS: 80053; 83690; 96360; 99285; 74176; 81003; 83735; 85025

== ENCOUNTER 2022-10-27 14:35 | Outpatient (CLI) | payer BC, SELFPAY ==
--- NOTE | 2022-10-27 | DI.RAD_ITS ---
Exam(s) XR FINGER LT INDEX EXAM: XR FINGER LT INDEX CLINICAL HISTORY: LT FINGER PAIN, M79.645, PROGRESSIVE WORSENING PAIN, SWELLING LT 2ND DIGIT. TECHNIQUE: 2D digital imaging was performed. COMPARISON: No exams were available for comparison FINDINGS: 3 views There is soft tissue swelling around the PIP joint level. No fracture or dislocation nor radiopaque foreign body. No osseous lesions nor erosions. No degenerative changes IMPRESSION: Soft tissue swelling around the PIP joint but no osseous findings. DATA REPOSITORY: RADIATION DOSE DELIVERED:
== END 2022-10-27 14:55 ==
LOC: DI 14:35
PROVIDERS: PCP Nurse Practitioner Family; Visit Provider Physician Assistant Medical
DX: M79.645 Pain in left finger(s) (principal); R22.31 Localized swelling, mass and lump, right upper limb
CPT/HCPCS: 73140

== ENCOUNTER 2022-11-15 08:56 | Emergency (ER) | payer BC, SELFPAY ==
[2022-11-15 09:02] VITALS: BP 129/59; PULSE 76; RESP 15; TEMP 37.2; O2SAT 99
--- NOTE | 2022-11-15 09:14 | W.ED.GENAD ---
Discharge Plan Disposition Patient Disposition: Home Discharge Details Clinical Impression: CKD (chronic kidney disease), Acute left flank pain, Macrocytic anemia, Cyst of right kidney, Cholelithiasis Primary Care Provider: Shital Patel ED Provider: Gabriel Ziegler Home Meds and New Rx's Prescriptions: Continued folic acid 1 mg tablet 1 mg PO DAILY Patient Comments: not taking 11/15/22 CT loperamide 2 mg capsule 2 mg PO QHS Patient Comments: not taking 11/15/22 CT metoprolol succinate 50 mg tablet extended release 24 hr 50 mg PO DAILY Patient Comments: TAKE ONE TABLET BY MOUTH EVERY DAY sodium bicarbonate 650 mg tablet 650 mg PO TID Patient Comments: TAKE ONE TABLET BY MOUTH TWICE A DAY ergocalciferol (vitamin D2) 1,250 mcg (50,000 unit) capsule 1,250 mcg PO DAILY Patient Comments: not taking 11/15/22 CT Eliquis 5 mg tablet 5 mg PO DAILY Patient Comments: not taking 11/15/22 CT melatonin 3 mg Capsule 3 mg PO HS amlodipine 2.5 mg tablet 2.5 mg PO DAILY Patient Comments: TAKE ONE TABLET BY MOUTH EVERY DAY tamsulosin [Flomax] 0.4 mg Capsule 0.4 mg PO DAILY sevelamer carbonate 800 mg tablet 800 mg PO TID Patient Comments: TAKE ONE TABLET BY MOUTH THREE TIMES A DAY WITH MEALS amlodipine 2.5 mg tablet Patient Comments: TAKE ONE TABLET BY MOUTH EVERY DAY tamsulosin 0.4 mg capsule 0.4 mg PO DAILY Patient Comments: TAKE ONE CAPSULE BY MOUTH EVERY DAY sodium bicarbonate 650 mg tablet 650 mg PO TID Patient Comments: TAKE ONE TABLET BY MOUTH THREE TIMES A DAY sevelamer carbonate 800 mg Tablet 800 mg PO TID cholecalciferol (vitamin D3) 75 mcg (3,000 unit) Tablet 6,000 unit PO DAILY cyanocobalamin (vitamin B-12) 1,000 mcg Capsule 1,000 mcg PO DAILY Discharge Instructions Additional Instructions: You were seen in the emergency department for your flank pain. Your CAT scan showed no sign of any obstructing kidney stones. Your CAT scan did show that you have gallstones which are not abnormal. Your creatinine was 3.1. Your primary care will be contacted to obtain a right upper quadrant ultrasound of your abdomen. In the meantime if you develop fevers nausea vomiting or diarrhea please return to the emergency department. Please also return if you develop a rash on your flank or develop any worsening flank pain. For your pain please take medications as follows: 1. Take acetaminophen (Tylenol), 1,000 mg (two 500 mg tabs) every 6 hours Medical Decision Making This is an overall quite well-appearing normothermic and not tachycardic 77-year-old male with history of stones requiring laser treatment at [facility] now with sharp episode of left sided flank pain concerning for recurrent stone. Patient does have an osteotomy in place but has not been nauseous nor vomiting to suggest SBO. He has no rash on his flank to suggest zoster. No pain out of proportion to suggest necrotizing soft tissue infection. No shortness of breath nor history of PE nor DVT to suggest pulmonary embolism. He had no dysuria nor frequency to suggest UTI. He has had no fevers nor cough to suggest pneumonia. Low suspicion for splenic arterial aneurysm given resolved pain. Patient reportedly has had a creatinine up to 12 and more recently at 4 so we will obtain basic labs to assess his renal function. Will reassess following labs and imaging. He does have a history of colon cancer so GI malignancy is also a possibility. 11:09 AM Urinalysis nitrite and leuk esterase negative not consistent with UTI. 11:45 AM Basic metabolic panel showing creatinine which appears at baseline at 3.1 and consistent with CKD. Mild hyperglycemia, no anion gap to suggest DKA. Mildly elevated BUN similar to prior. No acute electrolyte abnormalities. CBC with no leukocytosis nor thrombocytopenia. Mild macrocytic anemia improved compared to prior. 11:[address] scan showed no hydro and no stones in bladder. Patient did have cholelithiasis for which radiology recommended follow-up ultrasound. I have asked health munitions handler supervisor Chelsy to have the patient seen within the week by his primary care provider for right upper quadrant ultrasound. He had no signs of SBO. We did have a right renal cyst that had been noted on ultrasound 2 years ago. I advised ED return if he developed any rash on his flank which could suggest zoster or if he developed any right upper quadrant pain or fevers or nausea or vomiting which could suggest acute cholecystitis. I told the patient about his mild anemia. I also advised acetaminophen as needed for analgesia. Patient is on B12 he reports. I advised PCP follow-up for his macrocytic anemia. Chronic conditions affecting the care of the patient: Nephrolithiasis History obtained from an outside historian: N/A External record review: [facility] EMR Medications: N/A Social determinants of health affecting disposition: N/A Management discussed with: N/A Treatment/interventions considered: Hospitalization but deferred given resolved pain Response to therapies provided: N/A HPI General Date/Time Provider Initiated Documentation: 11/15/22 09:07. HPI Narrative: This is a 77-year-old male with a history of paroxysmal A-fib, hematuria, and ureterolithiasis and ileostomy now in the emergency department with left-sided flank pain. Patient reports that he is several weeks status post most recent laser treatment. He says that this morning he was in his usual state of health but had an approximately 30 sec episode of left-sided flank pain. He describes this pain as sharp. He felt that it was slightly lower than prior episodes of ureterolithiasis but he was concerned so he came into the emergency department. His pain subsequently resolved. He denies hematuria urinary frequency and dysuria. He does note that he has some baseline urinary frequency. He has never had a PE nor DVT and is not feeling short of breath nor is he having any chest pain. He denies routine tobacco and illicits but does drink 1 scotch per day. He denies history of withdrawal. He has had no nausea nor vomiting. He had no abdominal pain. No rash to abdomen or flank. No recent trauma. Related Data Home Medications Medication Instructions Recorded Confirmed apixaban 5 mg tablet (Eliquis) 5 mg PO DAILY 08/06/20 04/16/21 melatonin 3 mg capsule 3 mg PO HS 08/06/20 11/15/22 folic acid 1 mg tablet 1 mg PO DAILY 11/06/20 04/16/21 loperamide 2 mg capsule 2 mg PO QHS 03/02/21 04/16/21 metoprolol succinate 50 mg 50 mg PO DAILY 03/02/21 11/15/22 tablet,extended release 24 hr ergocalciferol (vitamin D2) 1,250 1,250 mcg PO DAILY 09/01/22 09/01/22 mcg (50,000 unit) capsule sodium bicarbonate 650 mg tablet 650 mg PO TID 09/01/22 11/15/22 amlodipine 2.5 mg tablet 2.5 mg PO DAILY 11/15/22 11/15/22 amlodipine 2.5 mg tablet mg 11/15/22 11/15/22 cholecalciferol (vitamin D3) 75 6,000 unit PO DAILY 11/15/22 11/15/22 mcg (3,000 unit) tablet cyanocobalamin (vitamin B-12) 1,000 mcg PO DAILY 11/15/22 11/15/22 1,000 mcg capsule sevelamer carbonate 800 mg tablet 800 mg PO TID 11/15/22 11/15/22 sevelamer carbonate 800 mg tablet 800 mg PO TID 11/15/22 11/15/22 sodium bicarbonate 650 mg tablet 650 mg PO TID 11/15/22 11/15/22 tamsulosin 0.4 mg capsule 0.4 mg PO DAILY 11/15/22 11/15/22 tamsulosin 0.4 mg capsule (Flomax) 0.4 mg PO DAILY 11/15/22 11/15/22 Allergies Allergy/AdvReac Type Severity Reaction Status Date / Time Sulfa (Sulfonamide Allergy Mild tight Unverified 11/15/22 09:08 Antibiotics) feeling in scrotum hydrochlorothiazide AdvReac Mild Verified 11/15/22 09:08 lisinopril AdvReac Mild cough Verified 11/15/22 09:08 General Stated Complaint: FlankPain PAMELA: 3 PFSH All Active Problems (Updated 11/15/22 @ 11:58 by Gabriel Ziegler MD) CKD (chronic kidney disease) (Chronic) Acute left flank pain (Acute) Macrocytic anemia (Acute) Cyst of right kidney (Acute) Cholelithiasis (Acute) Ileostomy dysfunction (Acute) Abdominal pain (Acute) Hematuria (Acute) Clostridioides difficile infection (Acute) Elevated transaminase level (Acute) Paroxysmal A-fib (Chronic) Open abdominal wall wound (Acute) Weight loss (Acute) Weakness (Acute) History of creation of ostomy (Acute) History of hemicolectomy (Acute) B12 deficiency (Chronic) Discharge planning issues (Acute) DVT prophylaxis (Acute) Anemia of chronic disease (Chronic) UTI (urinary tract infection) (Acute) Enterocutaneous fistula (Acute) Azotemia (Acute) Hyperlipidemia (Acute) Renal cyst, right (Acute) Visit for suture removal (Acute) Left knee DJD (Chronic) History of >5 Monovisc injections ([facility]) Colon cancer (Chronic) History of smoking (Acute) BMI 40.0-44.9, adult (Acute) Medical History Carpal tunnel syndrome Patient denies having. 06/23/20-I didn't even know it was diagnosed, not denying that I have it, just nobody told me I did Hx of hemorrhoids Palliative care patient Prediabetes Rhinitis Sleep disturbance Tubular adenoma (~2012) Surgical History H/O foot surgery heel surgery Left Hx of colectomy (~06/24/20) Hx of colonoscopy Hx of hand surgery LIF Hx of tonsillectomy Family History Mother Heart disease Alcohol abuse Social History Smoking/Tobacco Use Status: Former Tobacco Use Smoking risk assessment performed?: Yes Alcohol Intake: current Alcohol Intake frequency: 0-2 drinks per day Alcohol type: beer and hard liquor Drug use: Never Substance use type: does not use Current gender identity: male Do you feel safe at home: Yes Do you feel safe in your relationship?: Yes Additional Social history: 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 Grew up in [facility]. Lives with Fariha in [facility]. Exam Narrative Exam Narrative: General: Well-appearing in no acute distress speaking in complete sentences. Head: Normocephalic, atraumatic. Eye: Pupils equal, round reactive to light. Extraocular eye movements intact. No conjunctival injection. No scleral icterus. Ear, nose, mouth, throat: Grossly normal inspection. Normal voice, handling secretions normally. Neck: Trachea midline. Cardiovascular: Well-perfused distal extremities. Respiratory: Nonlabored respiration. Gastrointestinal: Nondistended abdomen. Soft nontender abdomen with ileostomy in place. No rebound. No guarding. No CVA tenderness. No rash to abdomen or flank. Musculoskeletal: No edema. Moving all 4 extremities spontaneously. Skin: Normal for age and race, grossly normal temperature and turgor. No acute rash. Neurologic: Alert and appropriate, no apparent acute deficits. Psychiatric: Mood and manner are appropriate. Grooming and personal hygiene are appropriate. Course Vital Signs Vital signs: Vital Signs Temperature 37.2 C 11/15/22 09:02 Pulse 76 11/15/22 09:02 Respiratory Rate 15 11/15/22 09:02 Blood Pressure 129/59 L 11/15/22 09:02 Pulse Oximetry 99 11/15/22 09:02 Temperature 37.2 C 11/15/22 09:02 Temperature Source Oral 11/15/22 09:02 Pulse 76 11/15/22 09:02 Respiratory Rate 15 11/15/22 09:02 Respiratory Effort Normal 11/15/22 09:06 Blood Pressure 129/59 L 11/15/22 09:02 Blood Pressure Position Sitting 11/15/22 09:02 Pulse Oximetry 99 11/15/22 09:02 Oxygen Delivery Method Room Air 11/15/22 09:02 Oxygen Flow Rate 0 11/15/22 09:02 Pain Level 1 11/15/22 09:06 PAWSS Have you Been Recently Intoxicated or Drunk Within the Last 30 days?: No Have you Ever Experienced Previous Episodes of Alcohol Withdrawal?: No Have you ever Experienced Withdrawal Seizures?: No Have you ever Experienced Delirium Tremens(DT)s?: No Have you ever undergone Alcohol Rehabilitation Treatment (i.e, inpt ot outpatient treatment programs)?: No Have you ever Experienced Blackouts?: No Have you ever Combined Alcohol with other Downers within the last 90 days?: No Have you ever Combined Alcohol with any other Substance of Abuse during the last 90 days?: No Result: 0
--- NOTE | 2022-11-15 09:15 | DI.CT_ITS ---
Exam(s) CT RENAL COLIC WO EXAM: CT RENAL COLIC WO CLINICAL HISTORY: Left flank pain history of stones. TECHNIQUE: Imaging Protocol: Axial computed tomography images with coronal and sagittal reformatted images were created and reviewed CONTRAST MATERIAL: Intravenous: none Oral: None COMPARISON: US US ABDOMEN RENAL from 11/07/[address] ABDOMEN PELVIS WO from 09/01/2022 FINDINGS: VISUALIZED LUNG BASES: No nodules nor pleural effusions evident. ABDOMEN: Right-sided ostomy again noted. No obvious bowel obstruction. No free air. No abscess. There is no ascites. LIVER: There are no obvious focal hepatic lesions evident of this noninfused study. GALLBLADDER/BILIARY: Abnormal density again noted in the gallbladder. Probably calculi. There is sl ight streaking around the gallbladder fundus. CBD is not dilated. PANCREAS: No evidence of pancreatic mass nor dilatation of the pancreatic duct. SPLEEN: Spleen is not enlarged. No obvious intrasplenic lesions. ADRENALS: There are no significant adrenal masses. KIDNEYS:There is again noted a lobulated uniformly dense exophytic probable hemorrhagic cyst off the lateral aspect of the right kidney measuring 3.2 by 3.0 cm, unchanged and most probably hemorrhagic c yst. This was shown to be cystic on ultrasound of 11/07/2020. No new solid findings in right kidney. No calculi nor hydronephrosis on the right side. In the left kidney the multiple small calculi seen in the lower pole region on the previous study of August 2022 are less evident as individual calculi on the present study. There is a small focus of de nsity in the lower pole calyx noted. There is no hydronephrosis nor hydroureter on this side. There are no calculi at the ureterovesical junctions nor in the nondistended urinary bladder. The bladder wall is diffusely thickened which is most probably related to an enlarged and calcified prostate gla nd ABDOMINAL AORTA: Abdominal aorta is not enlarged. LYMPH NODES: There is no retroperitoneal nor paraaortic adenopathy. ABDOMINAL WALL: Right-sided ileostomy. Mild mesenteric streaking in this region but unchanged from t he prior studies. GI: There is no evidence of bowel obstruction, free air, nor abscess. There are uncomplicated diverticuli in the sigmoid and descending-left colon. Colon is collapsed. T here has been right hemicolectomy. PELVIS: LYMPH NODES: There is no intrapelvic nor inguinal adenopathy. GI: No evidence of appendicitis.Sigmoid diverticulosis. No obvious acute diverticulitis. URINARY BLADDER: Uniformly thickened bladder wall. No radiopaque calculi seen within the nondistende d bladder lumen. There are no bladder diverticuli evident. REPRODUCTIVE: Enlarged and calcified prostate gland again noted. OSSEOUS: No significant osseous lesions. No fractures evident. Chronic disc space narrowing L5-S1. Also L4-5. No listhesis. IMPRESSION: 1. The previously present multiple small calculi in the lower pole the left kidney are no longer seen . There is only a small density in the lower pole calyx at this time. There is no hydronephrosis no r hydroureter on either side and there are no radiopaque calculi in the nondistended urinary bladder. The urinary bladder wall is again noted to be diffusely thickened and this is most probably related to the enlarged prostate gland. 2. Again noted is evidence of previous right hemicolectomy. There is also a right-sided ostomy again noted. No bowel obstruction, free air, nor abscess evident. No ascites. 3. Cholelithiasis. There is mild streaking around the gallbladder. Recommend follow-up ultrasound. The CBD is not dilated 4. Again noted is a previously described 3.2 x 3.0 cm exophytic hemorrhagic cyst off the lateral cor rowena of the right kidney, unchanged. This was shown to be a cyst on prior ultrasound of 11/07/2020. Report called by myself to ER. RADIATION DOSE DELIVERED: 886.45mGy.cm Total DLP DATA REPOSITORY: All CT scans at this facility are submitted to the National Radiology Data Registry (NRDR) Dose Index Registry (DIR) with the [employer] (A[employer]). RADIATION OPTIMIZATION: All CT scans at this facility use at least one of these dose optimization te chniques: automated exposure control; mA and/or kV adjustment per patient size (includes targeted exa ms where dose is matched to clinical indication); or iterative reconstruction.
[2022-11-15 10:59] LABS: Bilirubin Negative (Negative); Blood Negative (Negative); Clarity Clear (Clear); Glucose Negative (Negative); Ketones Negative (Negative); Leukocyte Esterase Negative (Negative); Nitrite Negative (Negative); Urobilinogen 0.2 mg/dL (Up to 0.2)
[2022-11-15 11:06] LABS: Bacteria Negative HPF (Negative); C & S Indicated? No; Casts 0-2 Hyaline LPF (Negative); Crystals Negative HPF (Negative); Epithelial Cells Rare HPF (Negative); Mucus Trace (Negative); RBC Negative HPF (0-2); WBC Negative HPF (0-5)
[2022-11-15 11:12] LABS: Anion Gap 8.4 mmol/L (3-11); BUN 56 mg/dL (7-18); CO2 26.6 mmol/L (21.0-32.0); CREATININE 3.1 mg/dL (0.70-1.30); Calcium 8.9 mg/dL (8.5-10.1); Chloride 104 mmol/L (98-107); Estimated GFR 20.07 (mL/min/1.73m2); Glucose 121 mg/dL (74-106); Potassium 4.5 mmol/L (3.5-5.1); Sodium 139 mmol/L (136-145)
[2022-11-15 11:22] LABS: Abs Immature Grans 0.03 10^3/uL (0.0-0.06); Absolute Basophil Count 0.09 10^3/uL (0.0-0.2); Absolute Lymphocyte Count 1.17 10^3/uL (1.2-3.4); Absolute Monocyte Count 0.88 10^3/uL (0.1-0.8); Absolute Neutrophil Count 7.78 10^3/uL (1.2-6.7); Basophils % 0.9; Eosinophils % 3.9; HCT 37.1 % (40.0-50.0); Immature Grans % 0.3; Lymphocytes % 11.3; MCH 31.2 pg (27.0-33.0); MCHC 32.3 % (32.0-36.0); MCV 96 fL (80-95); MPV 9.9 fL (8.0-11.0); Monocytes % 8.5; Neutrophils % 75.1; Platelet Count 216 10^3/uL (130-400); RBC 3.85 10^6/uL (4.36-5.78); RDW 13.8 % (11.8-14.1); RDW-SD 49.1 fL; WBC 10.35 10^3/uL (4.4-10.8)
--- NOTE | 2022-11-15 12:05 | NUR.NOTE ---
Nursing Note: Referral faxed to PCP for neds RUQ US, gallstones/ 1 week
[2022-11-15 12:12] VITALS: BP 162/73; PULSE 68; RESP 18; O2SAT 98
== END 2022-11-15 12:15 | disposition home or self-care (01) ==
PROVIDERS: Emergency Provider Emergency Medicine; PCP Nurse Practitioner Family
DX: R10.9 Unspecified abdominal pain (principal); N28.1 Cyst of kidney, acquired; D53.9 Nutritional anemia, unspecified; K80.20 Calculus of gallbladder without cholecystitis without obstruction; I48.91 Unspecified atrial fibrillation; Z87.19 Personal history of other diseases of the digestive system; Z93.2 Ileostomy status; Z79.01 Long term (current) use of anticoagulants; Z79.899 Other long term (current) drug therapy; Z87.891 Personal history of nicotine dependence
CPT/HCPCS: 36415; 80048; 99285; 74176; 81003; 81015; 85025; 99283; 99284